=== PATIENT | female | born 1985 | race Two or more races ===

== ENCOUNTER 2023-04-30 20:55 | Emergency (ER) | payer MEDICAID, SELFPAY ==
--- NOTE | ~2023-04-30 | XR_ITS ---
EXAMINATION: XR CHEST CLINICAL INFORMATION: Low suspicion, free air under diaphragm. COMPARISON: None available. TECHNIQUE: Frontal view of the chest was obtained. FINDINGS: No significant abnormality is noted involving the heart, lungs, mediastinum, bony thorax or soft tissues. XR/XR chest 1V IMPRESSION: Unremarkable chest examination.
[2023-04-30 21:00] VITALS: BP 110/76; PULSE 70; RESP 18; TEMP 37.2; O2SAT 100; BMI 34.0
[2023-04-30 21:27] LABS: MANUAL DIFF FLAG NO
[2023-04-30 21:28] LABS: Basophils Percent Auto 0.2 % (0-2); Eosinophils Absolute Auto 0.1 X10*3/uL (0.0-0.4); Eosinophils Percent Auto 1.4 % (0-4); Hematocrit 27.9 % (37.0-47.0); Hemoglobin 8.5 g/dl (12.0-16.0); Lymphocytes Absolute Auto 2.3 X10*3/uL (1.2-4.9); Lymphocytes Percent Auto 40.6 % (20-40); Mean Corpuscular HGB Conc 30.5 g/dl (31.0-35.0); Mean Corpuscular Hemoglobin 21.5 pg (27.0-33.0); Mean Corpuscular Volume 70.6 fL (80.0-98.0); Mean Platelet Volume 9.1 fL (9.4-12.3); Monocytes Absolute Auto 0.4 X10*3/uL (0.1-1.2); Monocytes Percent Auto 7.3 % (2-11); Neutrophils Absolute Auto 2.9 x10*3/uL (2.0-8.3); Neutrophils Percent Auto 50.5 % (45-73); Platelet Count 252 X10*3/uL (160-400); Red Blood Count 3.95 X10*6/uL (4.20-5.50); Red Cell Distribution Width 14.6 % (11.0-16.0); White Blood Count 5.8 X10*3/uL (4.8-10.8)
[2023-04-30 21:47] LABS: Alanine Aminotransferase 10 U/L (0-31); Alkaline Phosphatase 73 U/L (39-117); Anion Gap 10 (12-20); Aspartate Amino Transferase 16 U/L (5-31); Bilirubin Direct 0.1 mg/dL (0.0-0.5); Bilirubin Total 0.5 mg/dL (0.0-1.0); Blood Urea Nitrogen 12 mg/dL (9-16); Carbon Dioxide 24 mmol/L (22-29); Chloride 106 mmol/L (96-108); Estimated Glomerular Filt Rate > 60; Glucose Random 113 mg/dL (60-115); Lipase 25 U/L (8-78); Sodium 136 mmol/L (135-145); Total Protein 7.7 g/dL (6.5-8.0)
--- NOTE | 2023-04-30 22:26 | ED.ABDPAIN ---
HPI - Abdominal Pain General Chief Complaint: Abdominal Pain Stated Complaint: abd pain Time Seen by Provider: 04/30/23 21:55 Source: patient and other (I[place]ic popcorn machine operator) Mode of arrival: ambulatory Limitations: other History of Present Illness HPI narrative: Patient comes to the emergency room complaining of epigastric pain and burning sensation. Patient is Icelandic speaking only. All the history obtained through an official hospital popcorn machine operator. Patient states that she was diagnosed with H pylori several weeks ago, recently finished a course of antibiotics. Patient complaining of ongoing burning sensation. Patient takes omeprazole at home with no relief. Patient states that any time that she eats or drinks anything she has intense burning sensation. Denies significant abdominal pain, no nausea vomiting or diarrhea. No fever chills. Patient denies any past medical history. Related Data Previous Rx's Medication Instructions Recorded sucralfate 1 gram tablet 1 g PO BID #60 tabs 05/01/23 Allergies Allergy/AdvReac Type Severity Reaction Status Date / Time No Known Allergies Allergy Verified 04/30/23 21:07 Review of Systems Review of Systems Constitutional : No Weight loss, No Fever, No Chills, No Night Sweats, No Fatigue, No Malaise ENT/Mouth : No Hearing loss, No Ear Pain, No Nasal Congestion, No Sinus Pain, No Hoarseness, No sore throat, No Rhinorrhea, No Swallowing Difficulty Eyes: No Eye Pain, No Swelling, No Redness, No Foreign Body, No Discharge, No Vision Changes Cardiovascular : No Chest Pain, No SOB, No Dyspnea on Exertion, No Orthopnea, No Edema, No Palpitations Respiratory : No Cough, No Sputum, No Wheezing, No Smoke Exposure, No Dyspnea Gastrointestinal : No Nausea, No Vomiting, No Diarrhea, No Constipation, complaining of epigastric burning sensation Genitourinary : no irregular bleeding, No Dysuria, No Urinary Frequency, No Hematuria, No Urinary Incontinence, No Urgency, No Flank Pain, No Urinary Flow Changes, No Hesitancy Musculoskeletal : No joint pain, No Myalgias, No Joint Swelling Skin : No Skin Lesions, No rash Neuro : No Weakness, No Numbness, No Paresthesias, No Loss of Consciousness, No Dizziness, No Headache Psych : No Anxiety/Panic, No Depression, No SI/HI/AH/VH, No Social Issues, Heme/Lymph: No Bruising, No Bleeding,No Lymphadenopathy Endocrine : No Polyuria, No Polydipsia, No Temperature Intolerance [facility] Past Medical History Medical History (Updated 05/01/23 @ 00:06 by Amanda Gomes MD) Anemia GERD (gastroesophageal reflux disease) H. pylori infection Social History Social History Alcohol intake: never Smoked in Last 30 Days: No Use of substances other than those prescribed or required for medical reasons: No Advance Directives: No Advance Directives Information Provided: Yes Patient : No Physical Exam ED Vital Signs: Vital Signs - 24 hr 04/30/23 21:00 04/30/23 22:42 04/30/23 23:30 Temperature 98.9 F Pulse Rate 70 59 Respiratory Rate 18 18 14 Blood Pressure 110/76 108/65 Pulse Oximetry 100 98 Oxygen Delivery Method Room Air BMI result Body Mass Index 34.0 Const Other: Appearance: Alert. Oriented X3. Seems uncomfortable Eyes: Pupils equal, round and reactive to light. ENT: Pharynx normal. Neck: Normal inspection. Neck supple. No lymph nodes noted. No crepitus CVS: Normal heart rate and rhythm. Pulses normal. Normal S1 and S2 Respiratory: No respiratory distress. Breath sounds normal. No Wheezing. No rales Abdomen: Soft and nontender. No rigidity. No distention. Skin: Skin warm and dry. Pale. Normal skin turgor. Extremities: No lower extremity edema. No Lacerations. No Rash Neuro: Oriented X 3. No motor deficit. No sensory deficit. Moving all extremities. No slurred speech. CN 2 through 12 grossly intact Psych: calm, cooperative, normal affect Course Course Course Narrative: -patient has history of H pylori and anemia. Patient states that sometimes she sees black stool. But no bright red blood per rectum. -patient was agreeable to a digital rectal exam, stool is brown, work test pending -patient getting a GI cocktail, IV morphine, IV famotidine, IV fluids Medical Decision Making Medical Decision Making MDM Narrative: -patient initially presented with significant epigastric pain, perforated ulcer was considered, admission was considered -repetition of lab work, white blood cell count within normal limits. Patient's hemoglobin is 8.5, patient anemic, per patient's history she has chronic anemia, no significant electrolyte abnormalities, test/hCG negative, stool occult blood negative -my interpretation of chest x-ray: No air under the diaphragm. -patient overall feeling better, patient looks more comfortable -patient's medication was switched to sucralfate -patient given the phone number to follow up with Gastroenterology Differential Diagnosis Differential Diagnoses: The differential diagnosis associated with the presentation includes (H pylori, peptic ulcer disease, gastritis, pancreatitis, NC) Admission/Observation Consideration of admission/observation: Escalation of care including admission/observation considered Lab Data MDM Lab Attestation statement: I reviewed the patient's lab results. 04/30/23 21:21 04/30/23 21:21 Labs: Lab Results 04/30/23 04/30/23 04/30/23 Range/Units 21:21 21:21 22:29 WBC 5.8 (4.8-10.8) X10*3/uL RBC 3.95 L (4.20-5.50) X10*6/uL Hgb 8.5 L (12.0-16.0) g/dl Hct 27.9 L (37.0-47.0) % MCV 70.6 L (80.0-98.0) fL MCH 21.5 L (27.0-33.0) pg MCHC 30.5 L (31.0-35.0) g/dl RDW 14.6 (11.0-16.0) % Plt Count 252 (160-400) X10*3/uL MPV 9.1 L (9.4-12.3) fL Immature Gran % (Auto) 0.0 (0.0-0.4) % Neut % (Auto) 50.5 (45-73) % Lymph % (Auto) 40.6 H (20-40) % [place] % (Auto) 7.3 (2-11) % Eos % (Auto) 1.4 (0-4) % Baso % (Auto) 0.2 (0-2) % Lymph # (Auto) 2.3 (1.2-4.9) X10*3/uL [place] # (Auto) 0.4 (0.1-1.2) X10*3/uL Eos # (Auto) 0.1 (0.0-0.4) X10*3/uL Baso # (Auto) 0.0 (0.0-0.2) X10*3/uL Abs Immat Gran (auto) 0.00 (0.00-0.03) X10*3/uL Absolute Neuts (auto) 2.9 (2.0-8.3) x10*3/uL Absolute Nucleated RBC 0.000 (0.0-0.012) X10*3/uL Nucleated RBC % (auto) 0.0 (0.0-0.2) /100WBC Sodium 136 (135-145) mmol/L Potassium 4.0 (3.3-5.1) mmol/L Chloride 106 (96-108) mmol/L Carbon Dioxide 24 (22-29) mmol/L Anion Gap 10 L (12-20) BUN 12 (9-16) mg/dL Creatinine 0.65 (0.5-1.4) mg/dL Estim Creat Clear Calc 117.0 Estimated GFR > 60 Random Glucose 113 (60-115) mg/dL Calcium 9.0 (8.4-10.2) mg/dL Total Bilirubin 0.5 (0.0-1.0) mg/dL Direct Bilirubin 0.1 (0.0-0.5) mg/dL AST 16 (5-31) U/L ALT 10 (0-31) U/L Alkaline Phosphatase 73 (39-117) U/L Total Protein 7.7 (6.5-8.0) g/dL Albumin 4.0 (3.5-5.0) g/dL Lipase 25 (8-78) U/L Beta HCG, Quant < 2 mIU/mL Stool Occult Blood (NEGATIVE) 04/30/23 Range/Units 22:54 WBC (4.8-10.8) X10*3/uL RBC (4.20-5.50) X10*6/uL Hgb (12.0-16.0) g/dl Hct (37.0-47.0) % MCV (80.0-98.0) fL MCH (27.0-33.0) pg MCHC (31.0-35.0) g/dl RDW (11.0-16.0) % Plt Count (160-400) X10*3/uL MPV (9.4-12.3) fL Immature Gran % (Auto) (0.0-0.4) % Neut % (Auto) (45-73) % Lymph % (Auto) (20-40) % [place] % (Auto) (2-11) % Eos % (Auto) (0-4) % Baso % (Auto) (0-2) % Lymph # (Auto) (1.2-4.9) X10*3/uL [place] # (Auto) (0.1-1.2) X10*3/uL Eos # (Auto) (0.0-0.4) X10*3/uL Baso # (Auto) (0.0-0.2) X10*3/uL Abs Immat Gran (auto) (0.00-0.03) X10*3/uL Absolute Neuts (auto) (2.0-8.3) x10*3/uL Absolute Nucleated RBC (0.0-0.012) X10*3/uL Nucleated RBC % (auto) (0.0-0.2) /100WBC Sodium (135-145) mmol/L Potassium (3.3-5.1) mmol/L Chloride (96-108) mmol/L Carbon Dioxide (22-29) mmol/L Anion Gap (12-20) BUN (9-16) mg/dL Creatinine (0.5-1.4) mg/dL Estim Creat Clear Calc Estimated GFR Random Glucose (60-115) mg/dL Calcium (8.4-10.2) mg/dL Total Bilirubin (0.0-1.0) mg/dL Direct Bilirubin (0.0-0.5) mg/dL AST (5-31) U/L ALT (0-31) U/L Alkaline Phosphatase (39-117) U/L Total Protein (6.5-8.0) g/dL Albumin (3.5-5.0) g/dL Lipase (8-78) U/L Beta HCG, Quant mIU/mL Stool Occult Blood NEGATIVE (NEGATIVE) Radiology Impression Discussion of test interpretation with radiology: I have reviewed the radiologist's reading. Radiologist Impression: FINDINGS: No significant abnormality is noted involving the heart, lungs, mediastinum, bony thorax or soft tissues. XR/XR chest 1V IMPRESSION: Unremarkable chest examination. Independent Historian Clinical information obtained from an independent historian. History obtained from or confirmed by: Other (Patient with the aid of popcorn machine operator) Chronic Conditions Patient?s care impacted by: Other (Anemia) Medications Administered Discontinued Medications Generic Name Dose Route Start Last Admin Trade Name Davsi PRN Reason Stop Dose Admin Famotidine 20 mg 04/30/23 22:13 04/30/23 22:46 Famotidine/Pf 20 Mg/2 Ml Vial IVPUSH 04/30/23 22:14 20 mg ONCE ONE Administration Sodium Chloride 1,000 mls @ 999 mls/hr 04/30/23 22:34 04/30/23 23:52 Ns IVCONT 04/30/23 23:34 Infused .Q1H1M ONE Infusion Lidocaine/Diphenhydr/Alum/Mg/Simeth 10 ml 04/30/23 22:13 04/30/23 22:45 Mag&Al/Sim/Diphenhyd/Lidocaine 10 Ml Oral.Susp PO 04/30/23 22:14 10 ml ONCE ONE Administration Protocol Morphine Sulfate 2 mg 04/30/23 22:13 04/30/23 22:42 Morphine Sulfate 2 Mg/Ml Cartridge IVPUSH 04/30/23 22:14 2 mg ONCE ONE Administration Protocol Discharge Plan Discharge Clinical Impression: Peptic ulcer disease Patient Disposition: Home, Self-Care Instructions: Gastritis (ED) Additional Instructions: Please follow-up with your primary care physician tomorrow. If you have any worsening or new symptoms, please return to the emergency room or call 911 Prescriptions: New sucralfate 1 gram tablet 1 g PO BID Qty: 60 0RF Referrals: Tatianna Lowery MD [Physician] -
--- NOTE | 2023-04-30 22:30 | ECG_ITS ---
Test Reason : WEAKNESS Blood Pressure : / mmHG Vent. Rate : 058 BPM Atrial Rate : 058 BPM P-R Int : 194 ms QRS Dur : 076 ms QT Int : 406 ms P-R-T Axes : 023 009 009 degrees QTc Int : 398 ms Sinus bradycardia Otherwise normal ECG No previous ECGs available Referred By: Amanda Gomes Electronically Signed By:Messi Cazares
[2023-04-30] MEDS: 0.9 % Sodium Chloride 1,000 ML 999 ML IVCONT (22:40)
[2023-04-30 22:42] VITALS: RESP 18
[2023-04-30] MEDS: Morphine Sulfate 2 MG/ML CARTRIDGE IVPUSH (22:42)
[2023-04-30] MEDS: Mag&Al/Sim/Diphenhyd/Lidocaine 10 ML ORAL.SUSP PO (22:45)
[2023-04-30] MEDS: Famotidine/PF 20 MG/2 ML VIAL IVPUSH (22:46)
[2023-04-30 22:58] LABS: HCG Quantitative < 2 mIU/mL
[2023-04-30 23:03] LABS: OBS Int Ctl Valid YES; OBS1 NEGATIVE (NEGATIVE)
[2023-04-30 23:30] VITALS: BP 108/65; PULSE 59; RESP 14; O2SAT 98
[2023-05-01] VITALS: BP 105/71; PULSE 64; RESP 16; TEMP 36.8; O2SAT 98
== END 2023-05-01 00:27 | disposition home or self-care (01) ==
PROVIDERS: Emergency Provider Emergency Medicine
DX: K27.3 Acute peptic ulcer, site unspecified, without hemorrhage or perforation (principal); R00.1 Bradycardia, unspecified; Z79.899 Other long term (current) drug therapy
CPT/HCPCS: 36415; 71045; 80048; 80076; 82272; 83690; 84702; 85025; 93005; 96361; 96374; 96375; 99284; 99285; J2270

== ENCOUNTER 2023-05-07 22:40 | Inpatient (IN) | payer MEDICAID, SELFPAY ==
[2023-05-07 22:50] VITALS: BP 106/62; PULSE 95; RESP 20; TEMP 36.8; O2SAT 100
[2023-05-07 23:00] VITALS: BP 106/62; BP 117/68; PULSE 90; PULSE 91; RESP 20; TEMP 36.8; O2SAT 100; BMI 31.4
--- NOTE | 2023-05-07 23:48 | PC.NURSE ---
medicated per dec and notified Julio Kramer
[2023-05-08] VITALS (13 sets, daily range): BP systolic 88–130; BP diastolic 50–83; PULSE 55–140; RESP 16–24; TEMP 36.2–38.8; O2SAT 95–100
--- NOTE | 2023-05-08 01:16 | ED.HA ---
HPI - Headache General Chief Complaint: Headache Stated Complaint: cx pain/headache Time Seen by Provider: 05/07/23 23:01 Source: patient Mode of arrival: ambulatory Limitations: language barrier History of Present Illness HPI Narrative: Patient with history of GERD on Tetracycline and Flagyl for last 2 days frontal headache started just started an hour prior to arrival no nausea no vomiting no photosensitivity no fever no cough no shortness of breath no head injury patient does not get headaches very often no history of migraine paired patient also complaining of diffuse body aches also has small abscess on the right leg for last few days on arrival patient temperature 98.3 degrees blood pressure 106/62 pulse rate 95 Related Data Previous Rx's Medication Instructions Recorded sucralfate 1 gram tablet 1 g PO BID #60 tabs 05/01/23 Allergies Allergy/AdvReac Type Severity Reaction Status Date / Time No Known Allergies Allergy Verified 04/30/23 21:07 Review of Systems Review of Systems: Yes all other systems are reviewed and are negative PMFSH Past Medical History Medical History Anemia GERD (gastroesophageal reflux disease) H. pylori infection Social History Social History Alcohol intake: never Advance Directives: No Advance Directives Information Provided: Yes Physical Exam Vital Signs: Vital Signs: Last Vital Signs Temp 98.5 F 05/08/23 06:10 Pulse 88 05/08/23 06:10 Resp 17 05/08/23 06:10 BP 88/50 L 05/08/23 06:10 Pulse Ox 98 05/08/23 06:10 O2 Del Method Room Air 05/08/23 06:10 BMI result Body Mass Index 31.4 Appearance: Alert. Oriented X3. No acute distress. Eyes: Pallor+ ENT: Pharynx normal. Oral Mucosa moist Neck: Normal inspection. Neck supple. Kernig sign negative CVS: Normal heart rate and rhythm. Pulses normal. Respiratory: No respiratory distress. Equal air entry bilateral, no wheezing/rales/rhonchi Abdomen: Soft and nontender. Bowel sounds are present, no mass palpable, no CVA tenderness Skin: Skin warm and dry. Normal skin color. Normal skin turgor. Extremities: No lower extremity edema. No calf tenderness superficial abscess right lower extremity with surrounding erythema Neuro: Oriented X 3. No motor deficit. No sensory deficit.No cerebellar signs , cranial nerves II-XII intact Medications Administered Generic Name Dose Route Start Last Admin Trade Name Davis PRN Reason Stop Dose Admin Enoxaparin Sodium 40 mg 05/08/23 04:00 05/08/23 03:38 Enoxaparin Sodium 40 Mg/0.4 Ml Syringe SUBCUT 40 mg Q24H LUCIANO Administration Discontinued Medications Generic Name Dose Route Start Last Admin Trade Name Davis PRN Reason Stop Dose Admin Acetaminophen 650 mg 05/08/23 01:19 05/08/23 01:35 Acetaminophen 325 Mg Tablet PO 05/08/23 01:20 650 mg ONCE ONE Administration Acetaminophen/Butalbital/Caffeine 1 tab 05/07/23 23:17 05/07/23 23:33 Butalb/Acetamin/Caff 50/325/40 Tablet PO 05/07/23 23:18 1 tab ONCE ONE Administration Sodium Chloride 2,500 mls @ 2,500 mls/hr 05/08/23 01:20 05/08/23 02:20 Ns IV 05/08/23 02:19 Infused .Q1H STA Infusion Ceftriaxone Sodium 1 gm/ 50 mls @ 100 mls/hr 05/08/23 01:26 05/08/23 02:07 Sodium Chloride IV 05/08/23 01:55 Infused ONCE ONE Infusion Vancomycin HCl 1,500 mg/ 500 mls @ 333.333 mls/hr 05/08/23 01:52 05/08/23 01:57 Sodium Chloride IV 05/08/23 03:21 Not Given ONCE ONE Vancomycin HCl 2,000 mg in 500 mls @ 250 mls/hr 05/08/23 02:00 05/08/23 04:48 Vancomycin/Ns IV 05/08/23 03:59 Infused ONCE ONE Infusion Ketorolac Tromethamine 60 mg 05/08/23 00:27 05/08/23 00:39 Ketorolac Tromethamine 60 Mg/2 Ml Vial IM 05/08/23 00:28 60 mg ONCE ONE Administration Lidocaine HCl 2 ml 05/08/23 01:53 05/08/23 02:24 Lidocaine Hcl 1 % Mpf 2 Ml Vial INFILTRATI 05/08/23 01:54 2 ml ONCE ONE Administration Medical Decision Making Medical Decision Making [facility] Narrative: Patient she came with headache is on arrival head CT was negative during stay in the ER at 01:20 patient's with tachycardia of 118 blood pressure 107/61 saturating 96% room air sepsis protocol started lab showed lactic acid of 2.7 started on vancomycin and IV Rocephin IV fluids were given Differential Diagnosis Differential Diagnoses: The differential diagnosis associated with the presentation includes Sepsis/meningitis/migraine headache/anxiety/viral syndrome Consult Healthcare Provider Management of the patient was discussed with: Hospitalist Lab Data MDM Lab Attestation statement: I reviewed the patient's lab results. 05/08/23 01:27 05/08/23 01:27 Labs: Lab Results 05/07/23 05/08/23 05/08/23 Range/Units 23:39 00:45 00:45 WBC (4.8-10.8) X10*3/uL RBC (4.20-5.50) X10*6/uL Hgb (12.0-16.0) g/dl Hct (37.0-47.0) % MCV (80.0-98.0) fL MCH (27.0-33.0) pg MCHC (31.0-35.0) g/dl RDW (11.0-16.0) % Plt Count (160-400) X10*3/uL MPV (9.4-12.3) fL Immature Gran % (Auto) (0.0-0.4) % Neut % (Auto) (45-73) % Lymph % (Auto) (20-40) % [place] % (Auto) (2-11) % Eos % (Auto) (0-4) % Baso % (Auto) (0-2) % Lymph # (Auto) (1.2-4.9) X10*3/uL [place] # (Auto) (0.1-1.2) X10*3/uL Eos # (Auto) (0.0-0.4) X10*3/uL Baso # (Auto) (0.0-0.2) X10*3/uL Abs Immat Gran (auto) (0.00-0.03) X10*3/uL Absolute Neuts (auto) (2.0-8.3) x10*3/uL Absolute Nucleated RBC (0.0-0.012) X10*3/uL Nucleated RBC % (auto) (0.0-0.2) /100WBC Smear Tech's Comments Sodium (135-145) mmol/L Potassium (3.3-5.1) mmol/L Chloride (96-108) mmol/L Carbon Dioxide (22-29) mmol/L Anion Gap (12-20) BUN (9-16) mg/dL Creatinine (0.5-1.4) mg/dL Estim Creat Clear Calc Estimated GFR Random Glucose (60-115) mg/dL Lactic Acid (0.5-2.0) mmol/L Calcium (8.4-10.2) mg/dL Total Bilirubin (0.0-1.0) mg/dL AST (5-31) U/L ALT (0-31) U/L Alkaline Phosphatase (39-117) U/L Total Protein (6.5-8.0) g/dL Albumin (3.5-5.0) g/dL Urine Color Yellow Urine Appearance Clear Urine pH 6.0 (5.0-9.0) Ur Specific [place] 1.010 (1.005-1.025) Urine Protein Negative (Neg-Trace) mg/dL Urine Glucose (UA) Negative (Negative) mg/dL Urine Ketones Negative (Negative) mg/dL Urine Blood Negative (Negative) Urine Nitrite Negative (Negative) Ur Leukocyte Esterase Negative (Negative) Urine Test NEGATIVE (NEGATIVE) COVID-19 ([facility]) Negative (Negative) COVID-19 Clin Com See Note 05/08/23 05/08/23 05/08/23 Range/Units 01:27 01:27 01:27 WBC 3.1 L (4.8-10.8) X10*3/uL RBC 3.97 L (4.20-5.50) X10*6/uL Hgb 8.3 L (12.0-16.0) g/dl Hct 27.9 L (37.0-47.0) % MCV 70.3 L (80.0-98.0) fL MCH 20.9 L (27.0-33.0) pg MCHC 29.7 L (31.0-35.0) g/dl RDW 14.8 (11.0-16.0) % Plt Count 140 L D (160-400) X10*3/uL MPV 9.5 (9.4-12.3) fL Immature Gran % (Auto) 0.3 (0.0-0.4) % Neut % (Auto) 93.0 H (45-73) % Lymph % (Auto) 6.1 L (20-40) % [place] % (Auto) 0.3 L (2-11) % Eos % (Auto) 0.0 (0-4) % Baso % (Auto) 0.3 (0-2) % Lymph # (Auto) 0.2 L (1.2-4.9) X10*3/uL [place] # (Auto) 0.0 L (0.1-1.2) X10*3/uL Eos # (Auto) 0.0 (0.0-0.4) X10*3/uL Baso # (Auto) 0.0 (0.0-0.2) X10*3/uL Abs Immat Gran (auto) 0.01 (0.00-0.03) X10*3/uL Absolute Neuts (auto) 2.9 (2.0-8.3) x10*3/uL Absolute Nucleated RBC 0.000 (0.0-0.012) X10*3/uL Nucleated RBC % (auto) 0.0 (0.0-0.2) /100WBC Smear Tech's Comments VERIFIED Sodium 138 (135-145) mmol/L Potassium 3.4 (3.3-5.1) mmol/L Chloride 109 H (96-108) mmol/L Carbon Dioxide 18 L (22-29) mmol/L Anion Gap 14 (12-20) BUN 15 (9-16) mg/dL Creatinine 0.85 (0.5-1.4) mg/dL Estim Creat Clear Calc 89.2 Estimated GFR > 60 Random Glucose 226 H (60-115) mg/dL Lactic Acid 2.7 H* (0.5-2.0) mmol/L Calcium 9.2 (8.4-10.2) mg/dL Total Bilirubin 0.4 (0.0-1.0) mg/dL AST 18 (5-31) U/L ALT 11 (0-31) U/L Alkaline Phosphatase 81 (39-117) U/L Total Protein 7.1 (6.5-8.0) g/dL Albumin 3.8 (3.5-5.0) g/dL Urine Color Urine Appearance Urine pH (5.0-9.0) Ur Specific [place] (1.005-1.025) Urine Protein (Neg-Trace) mg/dL Urine Glucose (UA) (Negative) mg/dL Urine Ketones (Negative) mg/dL Urine Blood (Negative) Urine Nitrite (Negative) Ur Leukocyte Esterase (Negative) Urine Test (NEGATIVE) COVID-19 ([facility]) (Negative) COVID-19 Clin Com Procedures Abscess I/D Site: lower extremity Side (if applicable): right Local Anesthetic: lidocaine 1% Amount of anesthesia used (mL): 2 Technique: incised with blade Amount of fluid expressed (mL): 0.5 Sent for culture/gram staining?: Yes Irrigation: No Packing used?: none Complications: pain Discharge Plan Discharge Clinical Impression: Cellulitis, Fever Patient Disposition: Admitted As Inpatient
--- NOTE | 2023-05-08 01:20 | PC.NURSE ---
Sepsis alert called at this time.
--- NOTE | 2023-05-08 01:30 | PC.NURSE ---
sepsis bolus initiated
[2023-05-08 01:36] LABS: Basophils Percent Auto 0.3 % (0-2); Hematocrit 27.9 % (37.0-47.0); Hemoglobin 8.3 g/dl (12.0-16.0); Imm Gran Abs Auto 0.01 X10*3/uL (0.00-0.03); Imm Gran Pct Auto 0.3 % (0.0-0.4); Lymphocytes Absolute Auto 0.2 X10*3/uL (1.2-4.9); Lymphocytes Percent Auto 6.1 % (20-40); MANUAL DIFF FLAG SCAN; Mean Corpuscular HGB Conc 29.7 g/dl (31.0-35.0); Mean Corpuscular Hemoglobin 20.9 pg (27.0-33.0); Mean Corpuscular Volume 70.3 fL (80.0-98.0); Mean Platelet Volume 9.5 fL (9.4-12.3); Monocytes Percent Auto 0.3 % (2-11); Neutrophils Absolute Auto 2.9 x10*3/uL (2.0-8.3); Platelet Count 140 X10*3/uL (160-400); Red Blood Count 3.97 X10*6/uL (4.20-5.50); Red Cell Distribution Width 14.8 % (11.0-16.0); SCAN SMEAR FLAG 1; White Blood Count 3.1 X10*3/uL (4.8-10.8)
--- NOTE | 2023-05-08 01:37 | PC.NURSE ---
IV antibiotics initiated at this time.
--- NOTE | 2023-05-08 01:44 | PC.NURSE ---
Pt with wound to lateral aspect of right lower leg. redness and swelling noted around area.
[2023-05-08 01:52] LABS: Alanine Aminotransferase 11 U/L (0-31); Albumin Level 3.8 g/dL (3.5-5.0); Alkaline Phosphatase 81 U/L (39-117); Anion Gap 14 (12-20); Aspartate Amino Transferase 18 U/L (5-31); Bilirubin Total 0.4 mg/dL (0.0-1.0); Blood Urea Nitrogen 15 mg/dL (9-16); Calcium 9.2 mg/dL (8.4-10.2); Carbon Dioxide 18 mmol/L (22-29); Chloride 109 mmol/L (96-108); Creatinine Clr Calc Pharmacy 89.2; Estimated Glomerular Filt Rate > 60; Glucose Random 226 mg/dL (60-115); Potassium 3.4 mmol/L (3.3-5.1); Sodium 138 mmol/L (135-145); Total Protein 7.1 g/dL (6.5-8.0)
[2023-05-08 01:59] LABS: SLIDE REVIEW VERIFIED
--- NOTE | 2023-05-08 02:24 | PC.NURSE ---
Dr. Ames at bedside for I&D to wound on right leg.
--- NOTE | 2023-05-08 02:45 | PM.IMHP ---
History of Present Illness Date of Service: 05/08/23 Chief Complaint: Fever This is a 37-year-old female with pertinent history of gastroesophageal reflux disease who presents to the emergency department for evaluation of fevers. Patient states that started on the day of presentation. It is associated with headache and generalized body ache. On further investigation, patient states that she has a wound on right lower extremity which is tender, red and warm. It has been draining purulent foul-smelling discharge on the day of presentation. Patient states this is due to ingrown hair. Patient admits fevers and chills. She denies cough, shortness of breath, palpitations, chest discomfort abdominal pain, changes in urinary or bowel habits. In the emergency department, patient was found to be septic Review of Systems Constitutional: Constitutional: Reports chills, Reports fever(s) and Reports headache(s) ENT: Reports headache(s) Cardiovascular: Cardiovascular: Reports no additional cardiovascular complaints Respiratory: Respiratory: Reports no additional respiratory complaints Gastrointestinal: Gastrointestinal: Reports no additional gastrointestinal complaints Neurologic: Reports headache(s) [facility] Medical History Anemia GERD (gastroesophageal reflux disease) H. pylori infection Pertinent family history: No family history of early CAD Social History Alcohol intake: never Advance Directives: No Advance Directives Information Provided: Yes Meds Allergies Allergy/AdvReac Type Severity Reaction Status Date / Time No Known Allergies Allergy Verified 04/30/23 21:07 Active Medications: Current Medications Vancomycin HCl (Vancomycin/Ns) 2,000 mg in 500 mls @ 250 mls/hr IV ONCE ONE Stop: 05/08/23 03:59 Last Admin: 05/08/23 02:25 Dose: 250 mls/hr Physical Exam Vital Signs and Narrative: Vital Signs: Last Vital Signs Temp 98.4 F 05/08/23 02:20 Pulse 109 H 05/08/23 02:20 Resp 17 05/08/23 02:20 BP 119/67 05/08/23 02:20 Pulse Ox 100 05/08/23 02:20 O2 Del Method Room Air 05/08/23 02:20 BMI result Body Mass Index 31.4 Middle-aged female lying in bed in no distress Neck supple, no JVD Tachycardic with regular rhythm, S1-S2 heard Regular breath sounds bilaterally, no wheezing or crackles appreciated Abdomen soft nontender, no guarding, no rigidity Patient is awake, alert and oriented to self, place, time and person ; no focal motor deficit Extremity: Right lower extremity with area of erythema, warmth and tenderness Psych: Normal mood No pedal edema Results Labs 05/08/23 01:27 05/08/23 01:27 Labs: Laboratory Results - last 24 hr 05/07/23 05/08/23 05/08/23 23:39 00:45 00:45 MCV MCH MCHC RDW Plt Count MPV Immature Gran % (Auto) Neut % (Auto) Lymph % (Auto) [place] % (Auto) Eos % (Auto) Baso % (Auto) Lymph # (Auto) [place] # (Auto) Eos # (Auto) Baso # (Auto) Abs Immat Gran (auto) Absolute Neuts (auto) Absolute Nucleated RBC Nucleated RBC % (auto) Smear Tech's Comments Anion Gap Estim Creat Clear Calc Estimated GFR Random Glucose Lactic Acid Calcium Total Bilirubin AST ALT Alkaline Phosphatase Total Protein Albumin Urine Color Yellow Urine Appearance Clear Urine pH 6.0 Ur Specific [place] 1.010 Urine Protein Negative Urine Glucose (UA) Negative Urine Ketones Negative Urine Blood Negative Urine Nitrite Negative Ur Leukocyte Esterase Negative Urine Test NEGATIVE COVID-19 ([facility]) Negative COVID-19 Clin Com See Note 05/08/23 05/08/23 05/08/23 01:27 01:27 01:27 MCV 70.3 L MCH 20.9 L MCHC 29.7 L RDW 14.8 Plt Count 140 L D MPV 9.5 Immature Gran % (Auto) 0.3 Neut % (Auto) 93.0 H Lymph % (Auto) 6.1 L [place] % (Auto) 0.3 L Eos % (Auto) 0.0 Baso % (Auto) 0.3 Lymph # (Auto) 0.2 L [place] # (Auto) 0.0 L Eos # (Auto) 0.0 Baso # (Auto) 0.0 Abs Immat Gran (auto) 0.01 Absolute Neuts (auto) 2.9 Absolute Nucleated RBC 0.000 Nucleated RBC % (auto) 0.0 Smear Tech's Comments VERIFIED Anion Gap 14 Estim Creat Clear Calc 89.2 Estimated GFR > 60 Random Glucose 226 H Lactic Acid 2.7 H* Calcium 9.2 Total Bilirubin 0.4 AST 18 ALT 11 Alkaline Phosphatase 81 Total Protein 7.1 Albumin 3.8 Urine Color Urine Appearance Urine pH Ur Specific [place] Urine Protein Urine Glucose (UA) Urine Ketones Urine Blood Urine Nitrite Ur Leukocyte Esterase Urine Test COVID-19 ([facility]) COVID-19 Clin Com Imaging Radiologist's Impressions: Impressions Head CT 05/08/23 01:29 IMPRESSION: No acute intracranial pathology. Assessment and Plan (1) Cellulitis: Status: Acute Plan This is a 37-year-old female with pertinent history of gastroesophageal reflux disease who presents to the emergency department for evaluation of fevers. #. Sepsis due to purulent cellulitis. Patient resuscitated with IV crystalloids. Blood culture obtained. Initiating empiric IV vancomycin for concern of Staph. Lactic acid obtained #. Acute lactic acidosis due to sepsis. Resuscitated with IV crystalloids #. Microcytic anemia. Obtaining iron panel #. Gastroesophageal reflux disease. On PPI DVT prophylaxis: Lovenox Full code Regular diet Admit as inpatient and will require two night minimum hospital stay for IV antibiotics Time Spent With Patient Time: Total time managing care of this patient today ____ minutes. Quality Stroke Does the patient have a stroke diagnosis?: No VTE Prior VTE?: No VTE Risk Level:: Medical - moderate - high VTE Device Contraindication: Treatment Not Indicated VTE Drug Contraindication: N/A - Med Ordered
--- NOTE | 2023-05-08 03:41 | PC.NURSE ---
Pt with complaints of feeling hot. Ice packs applied to armpits and feet.
[2023-05-08 03:51] LABS: Iron 17 mcg/dL (30-160); Percent Iron Saturation 6 % (15-50); Total Iron Binding Capacity 307 mcg/dL (228-428); Unsaturated Iron Binding 290 ug/dL
[2023-05-08 04:20] LABS: ~Lactic Acid-LAB USE ONLY 2.1 mmol/L (0.5-2.0)
[2023-05-08 05:01] LABS: Hematocrit 25.8 % (37.0-47.0); Hemoglobin 7.8 g/dl (12.0-16.0); Imm Gran Abs Auto 0.01 X10*3/uL (0.00-0.03); Imm Gran Pct Auto 0.3 % (0.0-0.4); Lymphocytes Absolute Auto 0.2 X10*3/uL (1.2-4.9); Lymphocytes Percent Auto 7.1 % (20-40); MANUAL DIFF FLAG SCAN; Mean Corpuscular HGB Conc 30.2 g/dl (31.0-35.0); Mean Corpuscular Hemoglobin 21.3 pg (27.0-33.0); Mean Corpuscular Volume 70.5 fL (80.0-98.0); Mean Platelet Volume 9.5 fL (9.4-12.3); Monocytes Percent Auto 0.6 % (2-11); Neutrophils Absolute Auto 2.8 x10*3/uL (2.0-8.3); Platelet Count 129 X10*3/uL (160-400); Red Blood Count 3.66 X10*6/uL (4.20-5.50); Red Cell Distribution Width 14.9 % (11.0-16.0); SCAN SMEAR FLAG 1; White Blood Count 3.1 X10*3/uL (4.8-10.8)
[2023-05-08 05:23] LABS: Anion Gap 10 (12-20); Blood Urea Nitrogen 11 mg/dL (9-16); Calcium 8.2 mg/dL (8.4-10.2); Carbon Dioxide 18 mmol/L (22-29); Chloride 116 mmol/L (96-108); Creatinine Clr Calc Pharmacy 103.9; Estimated Glomerular Filt Rate > 60; Glucose Random 105 mg/dL (60-115); Potassium 3.5 mmol/L (3.3-5.1); Sodium 140 mmol/L (135-145)
--- NOTE | 2023-05-08 05:57 | PC.NURSE ---
Report to Janis HERRERA on 3S.
[2023-05-08 06:02] LABS: Reflex Lactate? 2 Y
--- NOTE | 2023-05-08 06:15 | PC.NURSE ---
additional 1000 ml Nacl bolus initiated.
--- NOTE | 2023-05-08 07:37 | PHA.PROG ---
Admission Date/Time: May 08, 2023 02:43 Indication: Sepsis due to Cellulites Weight in k.8 kg Adjusted body weight in K.18 kg Wolsey body weight in K.1 Obesity Dosing Indication % IBW: 155% Serum Creatinine - Last 168 Hours 05/08/23 05/08/23 01:27 04:57 Creatinine 0.85 0.73 Estimated CrCl and GFR - Last 168 Hours 05/08/23 05/08/23 01:27 04:57 Estim Creat Clear Calc 89.2 103.9 Estimated GFR > 60 > 60 Vancomycin Loading Dose: 2000 mg Current Vancomycin Dosing Regimen: 1250 mg Q12H Date and Time for next Vancomycin Level to be drawn: 05/09 @ 1200 Pharmacist Comments on Vancomycin Plan: Patient received an adequate load dose on 05/08 @ 0225 in the ER Maintenance dose vanco 1250 mg Q12H is scheduled to start 05/08 @ 1400. Expected AUC is 515 with a trough of 15.2 Patient is obese with with %IBW > 130% therefore careful monitor is required due to high volume of distribution. Level is will be drawn prior to the 4th dose Pharmacy will monitor renal function daily. Carito Terrazas, Katherin Vancomycin dosing will take advantage of Le[employer] as a clinical decision support tool that uses Bayesian modeling to calculate individual patient's pharmacokinetic parameters and forecast the patient's drug concentration time course with the target goal AUC 24 range of 400 - 600 mg/L/hr.
--- NOTE | 2023-05-08 09:00 | MHC.CM.PN ---
Addendum entered by Tere Albrecht 05/08/23 11:05: CORRECTION: PT SPEAKS PORTIA Original Note: CM MET WITH PT USING [employer] TESTER NUMBER [id number] PT IS FRENCH SPEAKING ONLY PER HER REPORT: PT LIVES WITH HER AND CHILDREN PT IS FULLY INDEPENDENT WITH CARE, HAS NO DME AND NO SERVICES PT DECLINES TO COMPLETE A HCP, BUT SAYS SHE WILL ASK HER SHE IS AWARE CM CAN ASSIST ANY TIME DURING ADMISSION PT DOES NOT KNOW THE NAME OF HER PCP, SHE SAYS SHE GOES TO A [facility] IN [place] AND THE PCPS FIRST NAME IS JANKI DCP: HOME WITH NO SERVICES TO TRANSPORT
--- NOTE | 2023-05-08 09:05 | PHA.MEDREC ---
Addendum entered by Zee Moreno [facility] 05/08/23 09:11: REVIEWED Original Note: Pharmacy Consult ? Medication Reconciliation Pharmacy has completed the medication reconciliation. Utilized telephone internet sales representative to confirm meds. Patient has RX bottles of metronidazole 500mg QID and tetracycline 500mg QIDACHS with them with anticipated end date of 05/21/23.
--- NOTE | 2023-05-08 13:00 | HO.PM.IMPN ---
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 she denies recent travel, sick contacts, sob, cough, abdominal pain, nausea, vomiting, diarrhea. she had pain at right leg wound - started several days ago as pustule, doesn't think it was a bug bite Review of Systems Review of Systems: Yes all other systems are reviewed and are negative Constitutional Constitutional: Denies chills and Reports fever(s) ENT Ears, Nose, Mouth, and Throat: Denies dizziness Cardiovascular Cardiovascular: Denies chest pain, Denies claudication and Denies dyspnea Respiratory Respiratory: Denies cough and Denies dyspnea Gastrointestinal Gastrointestinal: Denies abdominal pain, Denies diarrhea, Denies nausea and Denies vomiting Neurologic Neurologic: Denies dizziness Physical Exam Vital Signs: Vital Signs: Last Vital Signs Temp 97.3 F 05/08/23 08:00 Pulse 60 05/08/23 08:00 Resp 16 05/08/23 08:00 BP 109/64 05/08/23 08:00 Pulse Ox 99 05/08/23 08:00 O2 Del Method Room Air 05/08/23 08:00 BMI result Body Mass Index 31.4 Const: General: comfortable, alert and awake Nutritional Appearance: overweight Orientation/consciousness: patient oriented x3 Eyes: Pupils: Equal, round and reactive pupils present Neck: Other: neck supple, full ROM no meningeal signs some tenderness to palpation upper trapezius, primarily left side Resp: Effort & Inspection: normal respiratory effort, no respiratory distress and no use of accessory muscles Auscultation: clear to auscultation bilaterally Cardio: Rate: regular rate Heart sounds: S1 normal heart sound present and S2 normal heart sound present GI: Inspection: No distended Palpation (GI): Soft to palpation Neuro: General: patient oriented x3, moves all extremities and CN's II-XI intact bilaterally Cranial nerves: Yes Equal, round and reactive pupils present and Yes Midline tongue present Extrem: Other: right cabrera wound, no fluctuance or induration, mild tenderness General: Yes no pedal edema Objective Data Active Medications Acetaminophen (Acetaminophen 325 Mg Tablet) 650 mg PO Q6H PRN PRN Reason: Pain, Mild (Pain Scale 1-3) Last Admin: 05/08/23 10:25 Dose: 650 mg Documented By: MARGOTH Enoxaparin Sodium (Enoxaparin Sodium 40 Mg/0.4 Ml Syringe) 40 mg SUBCUT Q24H [facility] Last Admin: 05/08/23 03:38 Dose: 40 mg Documented By: JUAN C Vancomycin HCl 1,250 mg/ (Sodium Chloride) 250 mls @ 166.667 mls/hr IV Q12H [facility] Lactated Ringer's (Lr) 1,000 mls @ 125 mls/hr IVCONT .Q8H [facility] Last Admin: 05/08/23 07:28 Dose: 125 mls/hr Documented By: MARGOTH Melatonin (Melatonin 3 Mg Tablet) 6 mg PO BEDTIME PRN PRN Reason: Insomnia Methocarbamol (Methocarbamol 750 Mg Tablet) 750 mg PO BEDTIME [facility] Metronidazole (Metronidazole 500 Mg Tablet) 500 mg PO QID [facility] Non-Formulary Medication (Tetracycline) 500 mg PO QIDACHS [facility] Omeprazole (Omeprazole 20 Mg Capsule.) 20 mg PO DAILY@0630 [facility] Last Admin: 05/08/23 06:41 Dose: 20 mg Documented By: JENIFER Omeprazole (Omeprazole 20 Mg Capsule.) 20 mg PO BID@0630,1630 [facility] Ondansetron HCl (Ondansetron Hcl 4 Mg/2 Ml Vial) 4 mg IVPUSH Q8H PRN PRN Reason: Nausea and Vomiting Pharmacy Consult (Consult Rx Vancomycin Dosing) 1 each MISCELLANE DAILY PRN PRN Reason: Consult order Pharmacy Consult (Consult Rx Perform Med Rec) 1 each MISCELLANE ONCE PRN PRN Reason: Consult order Sertraline HCl (Sertraline Hcl 25 Mg Tablet) 25 mg PO DAILY [facility] Sodium Chloride (0.9 % Sodium Chloride Flush 3 Ml Syringe) 3 ml IVFLUSH QSHIFT [facility] Last Admin: 05/08/23 07:28 Dose: 3 ml Documented By: MARGOTH Sucralfate (Sucralfate 1 Gm Tablet) 1 gm PO BID [facility] Labs 05/08/23 04:57 05/08/23 04:57 Labs: Laboratory Results - last 24 hr 05/07/23 05/08/23 05/08/23 23:39 00:45 00:45 MCV MCH MCHC RDW Plt Count MPV Immature Gran % (Auto) Neut % (Auto) Lymph % (Auto) [place] % (Auto) Eos % (Auto) Baso % (Auto) Lymph # (Auto) [place] # (Auto) Eos # (Auto) Baso # (Auto) Abs Immat Gran (auto) Absolute Neuts (auto) Absolute Nucleated RBC Nucleated RBC % (auto) Smear Tech's Comments Anion Gap Estim Creat Clear Calc Estimated GFR Random Glucose Lactic Acid Lactic Acid F/U @ 2Hr Lactic Acid F/U @ 4Hr Calcium Iron TIBC % Saturation Unsat Iron Binding Total Bilirubin AST ALT Alkaline Phosphatase Total Protein Albumin Urine Color Yellow Urine Appearance Clear Urine pH 6.0 Ur Specific [place] 1.010 Urine Protein Negative Urine Glucose (UA) Negative Urine Ketones Negative Urine Blood Negative Urine Nitrite Negative Ur Leukocyte Esterase Negative Urine Test NEGATIVE COVID-19 ([facility]) Negative COVID-19 Clin Com See Note 05/08/23 05/08/23 05/08/23 01:27 01:27 01:27 MCV 70.3 L MCH 20.9 L MCHC 29.7 L RDW 14.8 Plt Count 140 L D MPV 9.5 Immature Gran % (Auto) 0.3 Neut % (Auto) 93.0 H Lymph % (Auto) 6.1 L [place] % (Auto) 0.3 L Eos % (Auto) 0.0 Baso % (Auto) 0.3 Lymph # (Auto) 0.2 L [place] # (Auto) 0.0 L Eos # (Auto) 0.0 Baso # (Auto) 0.0 Abs Immat Gran (auto) 0.01 Absolute Neuts (auto) 2.9 Absolute Nucleated RBC 0.000 Nucleated RBC % (auto) 0.0 Smear Tech's Comments VERIFIED Anion Gap 14 Estim Creat Clear Calc 89.2 Estimated GFR > 60 Random Glucose 226 H Lactic Acid 2.7 H* Lactic Acid F/U @ 2Hr Lactic Acid F/U @ 4Hr Calcium 9.2 Iron TIBC % Saturation Unsat Iron Binding Total Bilirubin 0.4 AST 18 ALT 11 Alkaline Phosphatase 81 Total Protein 7.1 Albumin 3.8 Urine Color Urine Appearance Urine pH Ur Specific [place] Urine Protein Urine Glucose (UA) Urine Ketones Urine Blood Urine Nitrite Ur Leukocyte Esterase Urine Test COVID-19 ([facility]) COVID-19 Clin Com 05/08/23 05/08/23 05/08/23 03:28 03:57 04:57 MCV 70.5 L MCH 21.3 L MCHC 30.2 L RDW 14.9 Plt Count 129 L MPV 9.5 Immature Gran % (Auto) 0.3 Neut % (Auto) 92.0 H Lymph % (Auto) 7.1 L [place] % (Auto) 0.6 L Eos % (Auto) 0.0 Baso % (Auto) 0.0 Lymph # (Auto) 0.2 L [place] # (Auto) 0.0 L Eos # (Auto) 0.0 Baso # (Auto) 0.0 Abs Immat Gran (auto) 0.01 Absolute Neuts (auto) 2.8 Absolute Nucleated RBC 0.000 Nucleated RBC % (auto) 0.0 Smear Tech's Comments Anion Gap Estim Creat Clear Calc Estimated GFR Random Glucose Lactic Acid Lactic Acid F/U @ 2Hr 2.1 H* Lactic Acid F/U @ 4Hr Calcium Iron 17 L TIBC 307 % Saturation 6 L Unsat Iron Binding 290 Total Bilirubin AST ALT Alkaline Phosphatase Total Protein Albumin Urine Color Urine Appearance Urine pH Ur Specific [place] Urine Protein Urine Glucose (UA) Urine Ketones Urine Blood Urine Nitrite Ur Leukocyte Esterase Urine Test COVID-19 ([facility]) COVID-19 Clin Com 05/08/23 05/08/23 04:57 06:14 MCV MCH MCHC RDW Plt Count MPV Immature Gran % (Auto) Neut % (Auto) Lymph % (Auto) [place] % (Auto) Eos % (Auto) Baso % (Auto) Lymph # (Auto) [place] # (Auto) Eos # (Auto) Baso # (Auto) Abs Immat Gran (auto) Absolute Neuts (auto) Absolute Nucleated RBC Nucleated RBC % (auto) Smear Tech's Comments Anion Gap 10 L Estim Creat Clear Calc 103.9 Estimated GFR > 60 Random Glucose 105 Lactic Acid Lactic Acid F/U @ 2Hr Lactic Acid F/U @ 4Hr 0.7 Calcium 8.2 L D Iron TIBC % Saturation Unsat Iron Binding Total Bilirubin AST ALT Alkaline Phosphatase Total Protein Albumin Urine Color Urine Appearance Urine pH Ur Specific [place] Urine Protein Urine Glucose (UA) Urine Ketones Urine Blood Urine Nitrite Ur Leukocyte Esterase Urine Test COVID-19 ([facility]) COVID-19 Clin Com Microbiology Microbiology Results: Microbiology 05/08/23 03:02 Gram Stain - Final Leg Right Assessment and Plan (1) Fever: Status: Acute (2) Cellulitis: Status: Acute Plan This is a 37-year-old Sarina speaking female with history of gastroesophageal reflux disease who presents to the emergency department for evaluation of fevers. Sepsis possibly due to purulent cellulitis, although area of involvement is small UA, CXR, negative met sepsis criteria with fever, tachycardia, leukopenia. fever and tachycardia resolved lactic acid 2.7-->2.1 with IVF s/p 30 cc/kg bolus in ED, bp soft, will continue IVF continue IV vancomycin blood cultures pending RPP pending ID consult pending Acute lactic acidosis due to sepsis continue IVF chronic Microcytic anemia pt reports h/o anemia, but does not know cause or baseline H/H stool occult negative reports menorrhagia Obtaining iron panel GERD recently diagnosed with h.pylori continue triple abx therapy, end date 05/21 continue carafate DVT prophylaxis: Lovenox Full code Regular diet attending - dr. mora Requires ongoing hospital stay for IV antibiotics Time Spent With Patient Time: Total time managing care of this patient today ____ minutes. Quality Stroke Does the patient have a stroke diagnosis?: No VTE Prior VTE?: No VTE Risk Level:: Medical - moderate - high VTE Device Contraindication: Treatment Not Indicated VTE Drug Contraindication: N/A - Med Ordered
--- NOTE | 2023-05-08 15:53 | W.PM.IDCN ---
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 Area was drained and culture is pending but gram stain shows polys/gram positive cocci. She is from [facility] originally. She denies tuberculosis positivity on testing and denies MRSA. She had no injury to her leg . Noone has illness in her home. She also has headache. She is taking tetracycline and flagyl for Hpylori and having trouble tolerating them due to GI distress. Review of Systems Review of Systems: Yes all other systems are reviewed and are negative PMFSH Past Medical History Medical History Anemia Depression GERD (gastroesophageal reflux disease) H. pylori infection Family History Family history: reviewed and not pertinent Social History Social History Household Members: Spouse, Family and Children Housing: House Do you presently have visiting nurse or other home services: No Alcohol intake: never Patient Tobacco Use Status: Never used Tobacco service: No Meds Allergies Allergy/AdvReac Type Severity Reaction Status Date / Time No Known Allergies Allergy Verified 04/30/23 21:07 Active Medications: Current Medications Acetaminophen (Acetaminophen 325 Mg Tablet) 650 mg PO Q6H PRN PRN Reason: Pain, Mild (Pain Scale 1-3) Last Admin: 05/08/23 10:25 Dose: 650 mg Enoxaparin Sodium (Enoxaparin Sodium 40 Mg/0.4 Ml Syringe) 40 mg SUBCUT Q24H [facility] Last Admin: 05/08/23 03:38 Dose: 40 mg Vancomycin HCl 1,250 mg/ (Sodium Chloride) 250 mls @ 166.667 mls/hr IV Q12H [facility] Last Infusion: 05/08/23 15:19 Dose: Infused Lactated Ringer's (Lr) 1,000 mls @ 125 mls/hr IVCONT .Q8H [facility] Last Admin: 05/08/23 15:48 Dose: 125 mls/hr Melatonin (Melatonin 3 Mg Tablet) 6 mg PO BEDTIME PRN PRN Reason: Insomnia Methocarbamol (Methocarbamol 750 Mg Tablet) 750 mg PO BEDTIME [facility] Metronidazole (Metronidazole 500 Mg Tablet) 500 mg PO QID [facility] Last Admin: 05/08/23 13:38 Dose: 500 mg (Tetracycline 500 Mg (Capsule)) 500 mg PO QIDACHS [facility] Last Admin: 05/08/23 15:48 Dose: 500 mg Omeprazole (Omeprazole 20 Mg Capsule.) 20 mg PO DAILY@0630 [facility] Last Admin: 05/08/23 06:41 Dose: 20 mg Omeprazole (Omeprazole 20 Mg Capsule.Dr) 20 mg PO BID@0630,1630 [facility] Last Admin: 05/08/23 15:48 Dose: 20 mg Ondansetron HCl (Ondansetron Hcl 4 Mg/2 Ml Vial) 4 mg IVPUSH Q8H PRN PRN Reason: Nausea and Vomiting Pharmacy Consult (Consult Rx Vancomycin Dosing) 1 each MISCELLANE DAILY PRN PRN Reason: Consult order Pharmacy Consult (Consult Rx Perform Med Rec) 1 each MISCELLANE ONCE PRN PRN Reason: Consult order Sertraline HCl (Sertraline Hcl 25 Mg Tablet) 25 mg PO DAILY [facility] Sodium Chloride (0.9 % Sodium Chloride Flush 3 Ml Syringe) 3 ml IVFLUSH QSHIFT [facility] Last Admin: 05/08/23 13:48 Dose: Not Given Sucralfate (Sucralfate 1 Gm Tablet) 1 gm PO BID [facility] Home Medications Medication Instructions Recorded Confirmed Last Taken Type methocarbamol 750 mg tablet 750 mg PO BEDTIME 05/08/23 05/08/23 05/07/23 History metronidazole 500 mg tablet 500 mg PO QID 05/08/23 05/08/23 05/07/23 History naproxen 500 mg tablet 500 mg PO BID 05/08/23 05/08/23 05/07/23 History pantoprazole 20 mg tablet,delayed 20 mg PO BID 05/08/23 05/08/23 05/07/23 History release sertraline 25 mg tablet 25 mg PO DAILY 05/08/23 05/08/23 05/07/23 History tetracycline 500 mg capsule 500 mg PO QIDACHS 05/08/23 05/08/23 05/07/23 History Physical Exam Vital Signs: Vital Signs: Last Vital Signs Temp 97.7 F 05/08/23 13:12 Pulse 57 05/08/23 13:12 Resp 18 05/08/23 13:12 BP 130/83 05/08/23 13:12 Pulse Ox 98 05/08/23 13:12 O2 Del Method Room Air 05/08/23 13:12 BMI result Body Mass Index 31.4 Const: General: cooperative HEENT: Head: Yes normal to inspection Face and sinus: Yes normal facial exam Mouth: Normal oral and palatal mucosa present Teeth and gingiva: dentition normal Eyes: General: appearance normal, both eyes and all related structures Pupils: Equal, round and reactive pupils present Resp: Effort & Inspection: normal respiratory effort Cardio: Rate: regular rate Rhythm: regular rhythm GI: Palpation (GI): Soft to palpation and nontender : General: Yes no CVA tenderness Back/Spine/Pelvis: Back: no CVA tenderness Skin: General skin exam: no rashes or lesions noted Neuro: General: moves all extremities Cranial nerves: Yes Equal, round and reactive pupils present Extrem: Other: left leg swelling around circumscribed hot round 2 cm pustular area Psych: Appearance: grossly normal Results Labs 05/08/23 04:57 05/08/23 04:57 Labs: Short CBC 05/08/23 05/08/23 Range/Units 01:27 04:57 WBC 3.1 L 3.1 L (4.8-10.8) X10*3/uL Hgb 8.3 L 7.8 L (12.0-16.0) g/dl Hct 27.9 L 25.8 L (37.0-47.0) % Plt Count 140 L D 129 L (160-400) X10*3/uL BMP 05/08/23 05/08/23 01:27 04:57 Sodium 138 140 Potassium 3.4 3.5 Chloride 109 H 116 H Carbon Dioxide 18 L 18 L BUN 15 11 Creatinine 0.85 0.73 Calcium 9.2 8.2 L D Liver Function 05/08/23 Range/Units 01:27 Total Bilirubin 0.4 (0.0-1.0) mg/dL AST 18 (5-31) U/L ALT 11 (0-31) U/L Alkaline Phosphatase 81 (39-117) U/L Albumin 3.8 (3.5-5.0) g/dL Urine 05/08/23 Range/Units 00:45 Urine Color Yellow Urine Appearance Clear Urine pH 6.0 (5.0-9.0) Ur Specific [place] 1.010 (1.005-1.025) Urine Protein Negative (Neg-Trace) mg/dL Urine Glucose (UA) Negative (Negative) mg/dL Microbiology Microbiology Results: Microbiology 05/08/23 03:02 Leg Right Gram Stain - Final Assessment and Plan (1) Cellulitis: Status: Acute Although she is [facility] she hasnt been there lately. She has no orf or rat or mouse bites. She has probable MRSA with gram positive cocci in smear. (2) Fever: Status: Acute (3) Sepsis: Status: Acute Plan Would continue Vancomycin. Await culture tomorrow and possible Bactrim or Doxycycline to cover if this is MRSA for 14 days Also antibacterial chlohexidine solution 2-3 times a week. Time Spent With Patient Time: Total time managing care of this patient today ____ minutes.
--- NOTE | 2023-05-08 16:14 | PC.NURSE ---
MD informed of pt's c/o itching body wide and burning to chest, pt stated feels like heart burn. MD assessed pt at bedside. [employer] Umpire services used throughout entire assessment and med pass. ECG to be obtained. Holding off on benadryl dose d/t pt being drowsy/lethargic. Maalox to be given for heartburn. Family at bedside. abx from home currently on hold d/t pt stated she has been having side effects since using it. was informed of this by the pt.
--- NOTE | 2023-05-09 00:44 | MHC.PIE ---
p; pt c/o food stuck in stomach/throat: pt reports burning like feeling. ? heartburn? pt also c/o buring pain to rt back and h/a i; dr jin notified; new order Maalox. prn Tylenol and prn Benadryl given e; will cont to monitor
[2023-05-09 03:34] VITALS: BP 118/75; PULSE 52; RESP 19; TEMP 35.9; O2SAT 99
[2023-05-09 03:47] VITALS: TEMP 36.5
--- NOTE | 2023-05-09 03:54 | MHC.PIE ---
p; pt c/o chest pain using the television actor service . note pain reproducible. i;dr jin notified; new order ekg now. trop now. simithicone now. toradol now e; ekg wnl. awaiting trop result. will cont to monitor
[2023-05-09 07:16] VITALS: BP 139/82; PULSE 50; RESP 20; TEMP 36.6; O2SAT 97
--- NOTE | 2023-05-09 10:29 | HO.PM.IMPN ---
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 she denies recent travel, sick contacts, sob, cough, abdominal pain, nausea, vomiting, diarrhea. she had pain at right leg wound - started several days ago as pustule, doesn't think it was a bug bite Review of Systems Review of Systems: Yes all other systems are reviewed and are negative Constitutional Constitutional: Denies chills and Reports fever(s) ENT Ears, Nose, Mouth, and Throat: Denies dizziness Cardiovascular Cardiovascular: Denies chest pain, Denies claudication and Denies dyspnea Respiratory Respiratory: Denies cough and Denies dyspnea Gastrointestinal Gastrointestinal: Denies abdominal pain, Denies diarrhea, Denies nausea and Denies vomiting Neurologic Neurologic: Denies dizziness Physical Exam Vital Signs: Vital Signs: Last Vital Signs Temp 97.9 F 05/09/23 07:16 Pulse 50 05/09/23 07:16 Resp 20 05/09/23 07:16 BP 139/82 05/09/23 07:16 Pulse Ox 97 05/09/23 07:16 O2 Del Method Room Air 05/09/23 07:16 BMI result Body Mass Index 31.4 Objective Data Active Medications Acetaminophen (Acetaminophen 325 Mg Tablet) 650 mg PO Q6H PRN PRN Reason: Pain, Mild (Pain Scale 1-3) Last Admin: 05/08/23 22:56 Dose: 650 mg Documented By: DELTA Diphenhydramine HCl (Diphenhydramine Hcl 25 Mg Capsule) 25 mg PO Q6H PRN PRN Reason: Itching Last Admin: 05/08/23 22:57 Dose: 25 mg Documented By: DELTA Enoxaparin Sodium (Enoxaparin Sodium 40 Mg/0.4 Ml Syringe) 40 mg SUBCUT Q24H LUCIANO Last Admin: 05/09/23 03:43 Dose: 40 mg Documented By: DELTA Vancomycin HCl 1,250 mg/ (Sodium Chloride) 250 mls @ 166.667 mls/hr IV Q12H LUCIANO Last Infusion: 05/09/23 05:00 Dose: 0 mls/hr Documented By: DELTA Lactated Ringer's (Lr) 1,000 mls @ 125 mls/hr IVCONT .Q8H [facility] Last Admin: 05/09/23 07:35 Dose: 125 mls/hr Documented By: BROWN Melatonin (Melatonin 3 Mg Tablet) 6 mg PO BEDTIME PRN PRN Reason: Insomnia Methocarbamol (Methocarbamol 750 Mg Tablet) 750 mg PO BEDTIME [facility] Metronidazole (Metronidazole 500 Mg Tablet) 500 mg PO QID [facility] Last Admin: 05/09/23 09:37 Dose: 500 mg Documented By: BROWN (Tetracycline 500 Mg (Capsule)) 500 mg PO QIDACHS [facility] Last Admin: 05/08/23 15:48 Dose: 500 mg Documented By: RAUL Omeprazole (Omeprazole 20 Mg Capsule.) 20 mg PO DAILY@0630 [facility] Last Admin: 05/09/23 05:34 Dose: 20 mg Documented By: DELTA Omeprazole (Omeprazole 20 Mg Capsule.) 20 mg PO BID@0630,1630 [facility] Last Admin: 05/09/23 05:34 Dose: 20 mg Documented By: DELTA Ondansetron HCl (Ondansetron Hcl 4 Mg/2 Ml Vial) 4 mg IVPUSH Q8H PRN PRN Reason: Nausea and Vomiting Pharmacy Consult (Consult Rx Vancomycin Dosing) 1 each MISCELLANE DAILY PRN PRN Reason: Consult order Pharmacy Consult (Consult Rx Perform Med Rec) 1 each MISCELLANE ONCE PRN PRN Reason: Consult order Sertraline HCl (Sertraline Hcl 25 Mg Tablet) 25 mg PO DAILY [facility] Last Admin: 05/09/23 09:37 Dose: 25 mg Documented By: BROWN Sodium Chloride (0.9 % Sodium Chloride Flush 3 Ml Syringe) 3 ml IVFLUSH QSHIFT [facility] Last Admin: 05/09/23 07:36 Dose: Not Given Documented By: BROWN Non-Admin Reason: IV Running Sucralfate (Sucralfate 1 Gm Tablet) 1 gm PO BID [facility] Last Admin: 05/09/23 09:37 Dose: 1 gm Documented By: BROWN Labs 05/09/23 05:34 05/09/23 05:34 Labs: Laboratory Results - last 24 hr 05/08/23 05/09/23 05/09/23 10:20 03:29 05:34 MCV MCH MCHC RDW Plt Count MPV Immature Gran % (Auto) Neut % (Auto) Lymph % (Auto) [place] % (Auto) Eos % (Auto) Baso % (Auto) Lymph # (Auto) [place] # (Auto) Eos # (Auto) Baso # (Auto) Abs Immat Gran (auto) Absolute Neuts (auto) Absolute Nucleated RBC Nucleated RBC % (auto) Smear Tech's Comments Anion Gap 11 L Estim Creat Clear Calc 118.5 Estimated GFR > 60 Random Glucose 93 Calcium 8.4 Troponin I High Sens < 2.7 Respiratory Panel Cat See Note Adenovirus (Rapid PCR) Not Detected B.pert (TEM-PCR) Not Detected B.parapertussis DNA PCR Not Detected C. pneumoniae DNA (PCR) Not Detected Coronavirus OC43 (PCR) Not Detected Coronavirus HKU1 (PCR) Not Detected Coronavirus 229E (PCR) Not Detected Coronavirus NL63 (PCR) Not Detected Human Metapneumovir PCR Not Detected Influenza A (RT-PCR) Not Detected Influenza B (RT-PCR) Not Detected M. pneumoniae (PCR) Not Detected Parainfluenza 1 (PCR) Not Detected Parainfluenza 2 (PCR) Not Detected Parainfluenza 3 (PCR) Not Detected Parainfluenza 4 (PCR) Not Detected RSV (PCR) Not Detected Entero/Rhino (PCR) Not Detected SARS-CoV-2 RNA (RT-PCR) Not Detected 05/09/23 05:34 MCV 71.9 L MCH 21.2 L MCHC 29.5 L RDW 15.2 Plt Count 152 L MPV 10.5 Immature Gran % (Auto) 0.3 Neut % (Auto) 24.1 L Lymph % (Auto) 63.0 H [place] % (Auto) 8.3 Eos % (Auto) 4.0 Baso % (Auto) 0.3 Lymph # (Auto) 2.2 [place] # (Auto) 0.3 Eos # (Auto) 0.1 Baso # (Auto) 0.0 Abs Immat Gran (auto) 0.01 Absolute Neuts (auto) 0.8 L Absolute Nucleated RBC 0.000 Nucleated RBC % (auto) 0.0 Smear Tech's Comments VERIFIED Anion Gap Estim Creat Clear Calc Estimated GFR Random Glucose Calcium Troponin I High Sens Respiratory Panel Cat Adenovirus (Rapid PCR) B.pert (TEM-PCR) B.parapertussis DNA PCR C. pneumoniae DNA (PCR) Coronavirus OC43 (PCR) Coronavirus HKU1 (PCR) Coronavirus 229E (PCR) Coronavirus NL63 (PCR) Human Metapneumovir PCR Influenza A (RT-PCR) Influenza B (RT-PCR) M. pneumoniae (PCR) Parainfluenza 1 (PCR) Parainfluenza 2 (PCR) Parainfluenza 3 (PCR) Parainfluenza 4 (PCR) RSV (PCR) Entero/Rhino (PCR) SARS-CoV-2 RNA (RT-PCR) Microbiology Microbiology Results: Microbiology 05/08/23 03:02 Gram Stain - Final Leg Right Routine Culture - Preliminary Staphylococcus aureus 05/08/23 01:28 Blood Culture - Preliminary Blood - Venous No growth after 24 hours. 05/08/23 01:28 Blood Culture - Preliminary Blood - Venous No growth after 24 hours. Assessment and Plan (1) Cellulitis: Status: Acute (2) Fever: Status: Acute Assessment and Plan: This is a 37-year-old [place] speaking female with history of gastroesophageal reflux disease who presents to the emergency department for evaluation of fevers. Sepsis possibly due to purulent cellulitis, although area of involvement is small UA, CXR, negative met sepsis criteria with fever, tachycardia, leukopenia, lactic acidosis, fever and tachycardia resolved s/p 30 cc/kg bolus in ED, bp soft, will continue IVF continue IV vancomycin blood cultures pending RPP pending ID following>follow cx Acute lactic acidosis due to sepsis continue IVF chronic Microcytic anemia pt reports h/o anemia, but does not know cause or baseline H/H stool occult negative reports menorrhagia Obtaining iron panel GERD recently diagnosed with h.pylori continue triple abx therapy, end date 05/21 continue carafate DVT prophylaxis:? Lovenox Full code Regular diet attending - dr. Varela Requires ongoing hospital stay for IV antibiotics Time Spent With Patient Time: Total time managing care of this patient today ____ minutes. Quality Stroke Does the patient have a stroke diagnosis?: No VTE Prior VTE?: No VTE Risk Level:: Medical - moderate - high VTE Device Contraindication: Treatment Not Indicated VTE Drug Contraindication: N/A - Med Ordered
--- NOTE | 2023-05-09 12:12 | HE.PHANOTE ---
vancomycin addendum Increased to 1250 mg q 8 hours due to level of 10.5, will recheck level sanchez
[2023-05-09 16:00] VITALS: BP 135/45; PULSE 49; RESP 20; TEMP 37.2; O2SAT 96
[2023-05-09 19:51] VITALS: BP 126/82; PULSE 50; RESP 20; TEMP 36.4; O2SAT 98
[2023-05-10 04:00] VITALS: BP 132/64; PULSE 57; RESP 18; TEMP 36.6; O2SAT 100
[2023-05-10 06:30] LABS: Creatinine Clr Calc Pharmacy 111.5; Estimated Glomerular Filt Rate > 60
[2023-05-10 07:38] VITALS: BP 152/89; PULSE 57; RESP 20; TEMP 36.6; O2SAT 99
--- NOTE | 2023-05-10 12:08 | P.DS_ITS ---
DS: Providers Provider Date of Service: 05/10/23 Date of admission: 05/08/23 02:43 Primary care physician: Unknown Physician Consults: 05/08/23 09:50 Consult to Infectious Diseases Routine Consulting Provider: [facility] [place] [facility] Reason for consultation: fever, unclear source, ?RLE cellulitis Has provider been notified: No DS: Diagnosis Discharge Diagnosis (1) Cellulitis: Status: Acute (2) Fever: Status: Acute DS: Summary Hospital Course Hospital Course: HPI as per admitting provider This is a 37-year-old female with pertinent history of gastroesophageal reflux disease who presents to the emergency department for evaluation of fevers.? Patient states that started on the day of presentation.? It is associated with headache and generalized body ache.? On further investigation, patient states that she has a wound on right lower extremity which is tender, red and warm.? It has been draining purulent foul- smelling discharge on the day of presentation.? Patient states this is due to ingrown hair.? Patient admits fevers and chills.? She denies cough, shortness of breath, palpitations, chest discomfort abdominal pain, changes in urinary or bowel habits. In the emergency department, patient was found to be septic . 37-year-old woman admitted for sepsis secondary purulent cellulitis on right lower extremity. She met sepsis criteria with fever, tachycardia, leukopenia, lactic acidosis which all resolved after treatment with IV vancomycin as well as 30 grams/kg IV fluid bolus. Blood cultures were negative after 48 hours. Wound culture from lower extremity was positive for MRSA. Seen evaluated by Infectious Disease provider with recommendation for 14 days of doxycycline on discharge. She was also noted to have chronic microcytic anemia with low iron. She was started on ferous sulfate 325 mg 3 times daily. Check CBC in 1 week She should continue this at home and follow-up with her primary care provider for further testing. Patient should also continue her previously started treatment for H pylori with tetracycline and Flagyl. Time Spent with Patient Time attestation: Total time managing care of this patient today ____ minutes. Discharge coordination time: Greater than 30 minutes Quality: Safe Use of Opioids Does Pt have an Active Cancer Diagnosis on the Problem List?: No Quality: Stroke Does the patient have a stroke diagnosis?: No Physical Exam Vital Signs: Vital Signs: Last Vital Signs Temp 97.9 F 05/10/23 07:38 Pulse 57 07/09/23 07:38 Resp 20 05/10/23 07:38 BP 152/89 H 05/10/23 07:38 Pulse Ox 99 05/10/23 07:38 O2 Del Method Room Air 05/10/23 07:38 BMI result Body Mass Index 31.4 Appearing in no acute distress head is normocephalic atraumatic eyes pupils are PERRLA sclera is anicteric mouth throat mucous membranes are intact and moist neck is supple no lymphadenopathy, no JVD noted lung sounds are clear to auscultation heart regular rate rhythm, clear S1, S2 positive bowel sounds, abdomen is soft, nontender neuro patient is alert x3, no focal deficits Right leg wound DS: Data Data Completed and Pending Labs on day of discharge: Laboratory Results - last 24 hr 05/10/23 05:47 Creatinine 0.68 Estim Creat Clear Calc 111.5 Estimated GFR > 60 Preliminary micro results at discharge 05/08/23 01:28 Blood Culture - Preliminary Blood - Venous No growth after 48 hours. 05/08/23 01:28 Blood Culture - Preliminary Blood - Venous No growth after 48 hours. Discharge Plan Discharge Anticipated Discharge Date/Time: 05/10/23 11:55 Patient Disposition: Home, Self-Care Discharge Diagnosis: MRSA wound infection Iron deficiency anemia Discharge Medications: New doxycycline hyclate 100 mg tablet 100 mg PO BID Qty: 28 0RF ferrous sulfate 324 mg (65 mg iron) Tablet,Delayed Release (Dr/Ec) 325 mg PO TID Qty: 90 0RF docusate sodium 100 mg Capsule 100 mg PO BID Qty: 60 0RF Continued sucralfate 1 gram tablet 1 g PO BID Qty: 60 0RF tetracycline 500 mg Capsule 500 mg PO QIDACHS Rx Instructions: END DATE: 05/21/23 metronidazole 500 mg Tablet 500 mg PO QID Rx Instructions: END DATE: 05/21/23 pantoprazole 20 mg tablet,delayed release (DR/EC) 20 mg PO BID methocarbamol 750 mg tablet 750 mg PO BEDTIME sertraline 25 mg tablet 25 mg PO DAILY naproxen 500 mg tablet 500 mg PO BID Discharge Orders: Discharge Order (Routine); Ordered 05/10/23 Ordered By: Blaire López Diet: Advance to usual diet Activity on Discharge: As tolerated Stand Alone Forms: Patient Portal Discharge page Other Ambulatory Orders: Complete Blood Count no Diff (Routine) Timeframe: 1 Week Facility: [facility] - Location: Laboratory Ordered By: Blaire López Care Plan Goals: May use chlorhexidine solution 2 to 3 times a week to clean wound started on iron supplementation for iron deficiency anemia Health Concerns: MRSA wound infection Iron deficiency anemia Plan of Treatment: Follow-up with primary care provider within 1 week check CBC in 1 week complete course of antibiotics for MRSA wound infection Continue your current treatment for H pylori you were started on prior to admission Assessment: See discharge summary
--- NOTE | 2023-05-10 12:15 | MHC.CM.PN ---
pt dcd home today transported by allie
[2023-05-10 12:26] LABS: Vancomycin Trough 22.4 mcg/mL (10.0-20.0)
--- NOTE | 2023-05-10 12:43 | HE.PHANOTE ---
RE:VANCO Level came back high at 22.4 after dose change 1250 q8h. Change dose again to 1500 q12h with another level to be obtained 05/11 @0800. Insight shows auc 518 with new dosing.
== END 2023-05-10 12:47 | disposition home or self-care (01) | DRG 720 ==
LOC: HO.ED 05-08 00:25 → HO.EDOVER 05-08 02:46 → HO.S3 05-08 05:26
PROVIDERS: Admitting Provider Student in an Organized Health Care Education/Training Program; Emergency Provider Internal Medicine; PCP Internal Medicine; Visit Provider Nurse Practitioner Acute Care
DX: A41.9 Sepsis, unspecified organism (principal); E87.21 Acute metabolic acidosis; D50.9 Iron deficiency anemia, unspecified; B95.62 Methicillin resistant Staphylococcus aureus infection as the cause of diseases classified elsewhere; L03.115 Cellulitis of right lower limb; K21.9 Gastro-esophageal reflux disease without esophagitis; Z20.822 Contact with and (suspected) exposure to COVID-19; Z79.899 Other long term (current) drug therapy
CPT/HCPCS: 36415; 70450; 80048; 80053; 80202; 81003; 81025; 82565; 83540; 83605; 84484; 85025; 87040; 87070; 87077; 87186; 87205; 87633; 87635; 93005; 99221; 99285; J0696; J1650; J1885; J3370; J3371

== ENCOUNTER → 2023-05-08 02:43 | Outpatient (BNV) | payer MEDICAID, SELFPAY | PROVIDERS: Admitting Provider Student in an Organized Health Care Education/Training Program; Emergency Provider Internal Medicine; Visit Provider Student in an Organized Health Care Education/Training Program | DX: L03.90 Cellulitis, unspecified (principal); R50.9 Fever, unspecified | CPT/HCPCS: 99222; 99232; 99239; 99499 ==

== ENCOUNTER 2023-05-22 18:44 | Emergency (ER) | payer MEDICAID, SELFPAY ==
--- NOTE | 2023-05-22 19:44 | ED.GENADULT ---
HPI - General Adult General Chief complaint: General Medical Stated complaint: abd pain Time Seen by Provider: 05/23/23 01:28 Source: patient Mode of arrival: ambulatory Limitations: language barrier History of Present Illness HPI narrative: patient's history of gastritis for more than 7 moved from [facility] 8 months ago increased stress is still complaining heart with sour taste supposed to see electrical tryout person in 08/24 was here last week for same Related Data Home Medications Medication Instructions Recorded Confirmed methocarbamol 750 mg tablet 750 mg PO BEDTIME 05/08/23 05/08/23 metronidazole 500 mg tablet 500 mg PO QID 05/08/23 05/08/23 naproxen 500 mg tablet 500 mg PO BID 05/08/23 05/08/23 pantoprazole 20 mg tablet,delayed 20 mg PO BID 05/08/23 05/08/23 release sertraline 25 mg tablet 25 mg PO DAILY 05/08/23 05/08/23 tetracycline 500 mg capsule 500 mg PO QIDACHS 05/08/23 05/08/23 Previous Rx's Medication Instructions Recorded sucralfate 1 gram tablet 1 g PO BID #60 tabs 05/01/23 docusate sodium 100 mg capsule 100 mg PO BID #60 caps 05/10/23 doxycycline hyclate 100 mg tablet 100 mg PO BID #28 tabs 05/10/23 ferrous sulfate 324 mg (65 mg 325 mg PO TID #90 tabs 05/10/23 iron) tablet,delayed release aluminum-mag hydroxide-simethicone 10 ml PO TID PRN indigestion #240 05/23/23 400 mg-400 mg-40 mg/5 mL oral susp mL (Maalox Maximum Strength) lorazepam 1 mg tablet (Ativan) 1 mg PO BEDTIME PRN anxiety #10 05/23/23 tabs Allergies Allergy/AdvReac Type Severity Reaction Status Date / Time No Known Allergies Allergy Verified 05/22/23 19:51 Review of Systems Review of Systems: Yes all other systems are reviewed and are negative [facility] Past Medical History Medical History Anemia Depression GERD (gastroesophageal reflux disease) H. pylori infection Social History Social History Household Members: Spouse, Family and Children Housing: House Do you presently have visiting nurse or other home services: No Alcohol intake: never Patient Tobacco Use Status: Never used Tobacco Advance Directives: No Advance Directives Information Provided: Yes service: No Physical Exam ED Vital Signs: Vital Signs - 24 hr 05/22/23 19:45 05/23/23 00:36 Temperature 96.8 F 98.3 F Pulse Rate 63 61 Respiratory Rate 20 18 Blood Pressure 127/74 118/88 Pulse Oximetry 100 Oxygen Delivery Method Room Air Room Air BMI result Body Mass Index 30.5 Appearance: Alert. Oriented X3. No acute distress. looks anxious Eyes: no pallor or icterus ENT: Pharynx normal. Oral Mucosa moist Neck: Normal inspection. Neck supple. CVS: Normal heart rate and rhythm. Pulses normal. Respiratory: No respiratory distress. Equal air entry bilateral, no wheezing/rales/rhonchi Abdomen: Soft , tenderness in epigastric area, Bowel sounds are present, no mass palpable, no CVA tenderness Skin: Skin warm and dry. Normal skin color. Normal skin turgor. Extremities: No lower extremity edema. No calf tenderness Neuro: Oriented X 3. Course Course Course Narrative: RME performed by Crystal Goss PA-C. Patient is a 37 year old assigned female at , [place] speaking only, presenting to the emergency department with abdominal pain and feeling as though it is difficult to eat. Labs ordered. Patient placed back in the waiting room pending room availability and results. Medical Decision Making Lab Data MDM Lab Attestation statement: I reviewed the patient's lab results. 05/22/23 22:16 05/22/23 22:16 Labs: Lab Results 05/22/23 05/22/23 05/22/23 Range/Units 22:16 22:16 22:17 WBC 6.3 (4.8-10.8) X10*3/uL RBC 4.14 L D (4.20-5.50) X10*6/uL Hgb 8.7 L D (12.0-16.0) g/dl Hct 29.2 L D (37.0-47.0) % MCV 70.5 L (80.0-98.0) fL MCH 21.0 L (27.0-33.0) pg MCHC 29.8 L (31.0-35.0) g/dl RDW 15.4 (11.0-16.0) % Plt Count 278 D (160-400) X10*3/uL MPV 9.9 (9.4-12.3) fL Immature Gran % (Auto) 0.3 (0.0-0.4) % Neut % (Auto) 54.4 (45-73) % Lymph % (Auto) 38.1 (20-40) % [place] % (Auto) 5.6 (2-11) % Eos % (Auto) 1.3 (0-4) % Baso % (Auto) 0.3 (0-2) % Lymph # (Auto) 2.4 (1.2-4.9) X10*3/uL [place] # (Auto) 0.4 (0.1-1.2) X10*3/uL Eos # (Auto) 0.1 (0.0-0.4) X10*3/uL Baso # (Auto) 0.0 (0.0-0.2) X10*3/uL Abs Immat Gran (auto) 0.02 (0.00-0.03) X10*3/uL Absolute Neuts (auto) 3.4 (2.0-8.3) x10*3/uL Absolute Nucleated RBC 0.000 (0.0-0.012) X10*3/uL Nucleated RBC % (auto) 0.0 (0.0-0.2) /100WBC Sodium 137 (135-145) mmol/L Potassium 4.6 D (3.3-5.1) mmol/L Chloride 105 (96-108) mmol/L Carbon Dioxide 24 (22-29) mmol/L Anion Gap 13 (12-20) BUN 13 (9-16) mg/dL Creatinine 0.73 (0.5-1.4) mg/dL Estim Creat Clear Calc 103.6 Estimated GFR > 60 Random Glucose 86 (60-115) mg/dL Calcium 9.6 D (8.4-10.2) mg/dL Magnesium 2.1 (1.6-2.6) mg/dL Total Bilirubin 0.3 (0.0-1.0) mg/dL AST 30 (5-31) U/L ALT 12 (0-31) U/L Alkaline Phosphatase 84 (39-117) U/L Total Protein 8.5 H (6.5-8.0) g/dL Albumin 4.2 (3.5-5.0) g/dL Urine Color Yellow Urine Appearance Clear Urine pH 6.5 (5.0-9.0) Ur Specific [place] 1.015 (1.005-1.025) Urine Protein Negative (Neg-Trace) mg/dL Urine Glucose (UA) Negative (Negative) mg/dL Urine Ketones Negative (Negative) mg/dL Urine Blood Large (3+) H (Negative) Urine Nitrite Negative (Negative) Ur Leukocyte Esterase Small (1+) H (Negative) Urine RBC 3-5 H (0-2) /HPF Urine WBC 6-10 (0-5) /HPF Ur Squamous Epith Cells 11-20 (0-2) /HPF Urine Bacteria None Seen (None Seen) Hyaline Casts 0-2 (0-2) /LPF Discharge Plan Discharge Clinical Impression: Chronic gastritis Patient Disposition: Home, Self-Care Instructions: Gastritis (ED) Additional Instructions: avoid fried/spicy food continue medications as prescribed medication for anxiety /stress follow with electrical tryout person Prescriptions: New lorazepam [Ativan] 1 mg tablet 1 mg PO BEDTIME PRN (Reason: anxiety) Qty: 10 0RF alum-mag hydroxide-simeth [Maalox Maximum Strength] 400-400-40 mg/5 mL suspension 10 ml PO TID PRN (Reason: indigestion) Qty: 240 0RF No Action sucralfate 1 gram tablet 1 g PO BID Qty: 60 0RF tetracycline 500 mg Capsule 500 mg PO QIDACHS Rx Instructions: END DATE: 05/21/23 metronidazole 500 mg Tablet 500 mg PO QID Rx Instructions: END DATE: 05/21/23 pantoprazole 20 mg tablet,delayed release (DR/EC) 20 mg PO BID methocarbamol 750 mg tablet 750 mg PO BEDTIME sertraline 25 mg tablet 25 mg PO DAILY naproxen 500 mg tablet 500 mg PO BID doxycycline hyclate 100 mg tablet 100 mg PO BID Qty: 28 0RF ferrous sulfate 324 mg (65 mg iron) Tablet,Delayed Release (Dr/Ec) 325 mg PO TID Qty: 90 0RF docusate sodium 100 mg Capsule 100 mg PO BID Qty: 60 0RF Referrals: Paty Martines MD [Physician] - 1 week
[2023-05-22 19:45] VITALS: BP 127/74; PULSE 63; RESP 20; TEMP 36; O2SAT 100; BMI 30.5
--- NOTE | 2023-05-22 22:19 | MHC.EDTECH ---
PATIENT BLOOD DRAWN AND URINE SAMPLE COLLECTED AND SENT TO LAB .
[2023-05-22 22:21] LABS: MANUAL DIFF FLAG NO
[2023-05-22 22:22] LABS: Basophils Percent Auto 0.3 % (0-2); Eosinophils Absolute Auto 0.1 X10*3/uL (0.0-0.4); Eosinophils Percent Auto 1.3 % (0-4); Hematocrit 29.2 % (37.0-47.0); Hemoglobin 8.7 g/dl (12.0-16.0); Imm Gran Abs Auto 0.02 X10*3/uL (0.00-0.03); Imm Gran Pct Auto 0.3 % (0.0-0.4); Lymphocytes Absolute Auto 2.4 X10*3/uL (1.2-4.9); Lymphocytes Percent Auto 38.1 % (20-40); Mean Corpuscular HGB Conc 29.8 g/dl (31.0-35.0); Mean Corpuscular Volume 70.5 fL (80.0-98.0); Mean Platelet Volume 9.9 fL (9.4-12.3); Monocytes Absolute Auto 0.4 X10*3/uL (0.1-1.2); Monocytes Percent Auto 5.6 % (2-11); Neutrophils Absolute Auto 3.4 x10*3/uL (2.0-8.3); Neutrophils Percent Auto 54.4 % (45-73); Platelet Count 278 X10*3/uL (160-400); Red Blood Count 4.14 X10*6/uL (4.20-5.50); Red Cell Distribution Width 15.4 % (11.0-16.0); White Blood Count 6.3 X10*3/uL (4.8-10.8)
[2023-05-22 22:24] LABS: Appearance Urine Clear; Color Urine Yellow; Glucose Urine UA Negative (Negative); Leukocyte Esterase Urine Small (1+) (Negative); Nitrite Urine Negative (Negative); PH 6.5 (5.0-9.0); Specific Gravity - Urine 1.015 (1.005-1.025); UMIC TRIGGER UACC YES; Urine Blood Large (3+) (Negative); Urine Ketones Negative (Negative); Urine Protein Negative (Neg-Trace)
[2023-05-22 22:35] LABS: Bacteria Urine None Seen (None Seen); Hyaline Casts Urine 0-2 /LPF (0-2); UACC Culture Trigger YES
[2023-05-22 22:37] LABS: Alanine Aminotransferase 12 U/L (0-31); Albumin Level 4.2 g/dL (3.5-5.0); Alkaline Phosphatase 84 U/L (39-117); Anion Gap 13 (12-20); Aspartate Amino Transferase 30 U/L (5-31); Bilirubin Total 0.3 mg/dL (0.0-1.0); Blood Urea Nitrogen 13 mg/dL (9-16); Calcium 9.6 mg/dL (8.4-10.2); Carbon Dioxide 24 mmol/L (22-29); Chloride 105 mmol/L (96-108); Creatinine Clr Calc Pharmacy 103.6; Estimated Glomerular Filt Rate > 60; Glucose Random 86 mg/dL (60-115); Magnesium 2.1 mg/dL (1.6-2.6); Potassium 4.6 mmol/L (3.3-5.1); Sodium 137 mmol/L (135-145); Total Protein 8.5 g/dL (6.5-8.0)
--- NOTE | 2023-05-22 23:03 | PC.NURSE ---
Reporting headache at this time. manager mountain (Britta Oneal) aware.
[2023-05-23 00:36] VITALS: BP 118/88; PULSE 61; RESP 18; TEMP 36.8
[2023-05-23] MEDS: LORazepam 1 MG TABLET PO (02:52)
[2023-05-23] MEDS: Lidocaine HCl 4 % Laryng-O-Jet 4 ML 1 APPL TOPICAL (02:53)
[2023-05-23] MEDS: Magnesium Hydrox/Alum Hydrox 30 ML ORAL.SUSP PO (02:53)
--- NOTE | 2023-05-23 03:13 | PC.NURSE ---
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 Pt reports 10/10 constant burning pain to throat radiating to esophagus x 1 month, Pt states she was seen here for same reason. Pt reports not being able eat, denies vomiting. Pt speaking in full sentences, no apparent distress noted. VSS.
== END 2023-05-23 03:21 | disposition home or self-care (01) ==
PROVIDERS: Physician Assistant Medical; Emergency Provider Internal Medicine
DX: K29.50 Unspecified chronic gastritis without bleeding (principal)
CPT/HCPCS: 36415; 80053; 81001; 83735; 85025; 87086; 99283; 99284

== ENCOUNTER 2023-06-08 11:02 | Outpatient (REF) | payer MEDICAID, SELFPAY ==
[2023-06-08 14:30] LABS: Hematocrit 29.1 % (37.0-47.0); Hemoglobin 8.4 g/dl (12.0-16.0); Mean Corpuscular HGB Conc 28.9 g/dl (31.0-35.0); Mean Corpuscular Hemoglobin 20.4 pg (27.0-33.0); Mean Corpuscular Volume 70.8 fL (80.0-98.0); Mean Platelet Volume 10.1 fL (9.4-12.3); Platelet Count 196 X10*3/uL (160-400); Red Blood Count 4.11 X10*6/uL (4.20-5.50); Red Cell Distribution Width 16.3 % (11.0-16.0); White Blood Count 4.2 X10*3/uL (4.8-10.8)
[2023-06-08 15:49] LABS: Ferritin 7 ng/mL (10-122); Vitamin D 25-OH Total 16.8 ng/mL (>30)
[2023-06-09 13:48] LABS: Transglutaminase IgA <1.0 U/mL
[2023-06-09 16:37] LABS: Immunoglobulin A 209 mg/dL (47-310)
[2023-06-11 17:18] LABS: Hematocrit 28.1 % (35.0-45.0); Hemoglobin 8.5 g/dL (11.7-15.5); MCH 20.6 pg (27.0-33.0); MCV 68.2 fL (80.0-100.0); RBC 4.12 Million/uL (3.80-5.10); RDW 15.8 % (11.0-15.0)
== END 2023-06-08 11:03 | disposition home or self-care (01) ==
LOC: HO.LAB 11:02
PROVIDERS: Visit Provider Internal Medicine
DX: R10.13 Epigastric pain (principal); D64.9 Anemia, unspecified; A04.8 Other specified bacterial intestinal infections
CPT/HCPCS: 36415; 82306; 82728; 82784; 83020; 85014; 85018; 85027; 85041; 86364; 99202

== ENCOUNTER 2023-06-08 11:02 | Outpatient (AMB) | payer MEDICAID, SELFPAY ==
--- NOTE | 2023-06-08 11:04 | A.OFFVIS_ITS ---
Intake Vital Signs 06/08/23 11:10 Height 5 ft 2 in Weight 169 lb 8.821 oz BMI 31.0 BP 123/68 Blood Pressure Location Lt brachial Position Sitting Pulse 75 Intake Visit Reasons: Epigastric pain Intake Note: Ermelinda presents in the office as a new patient for epigastric pains. CC: She states that she has never had a colonoscopy and no family hx of colon cancer. States that she is having pains in her stomach. She gets some constipation but denies diarrhea. Track Laying Supervisor Required: Yes Track Laying Supervisor Name: Bennie [id number] Allergies No Known Allergies Allergy (Verified 06/08/23 11:11) HPI HPI Comments History of Present Illness Details 37y.o F Afghani dayton speaking who is here for worsening of epigastric pain. Reports longstanding hx of acid reflux which has been managed on pepcid however for the past one month her discomfort has worsened and not gotten better despite adding omeprazole BID. No difficulty swallowing, but does report occ nausea. She was also recently diagnosed with H Pylori and was treated with quad therapy but unclear if he had a TIN. Pt was also noted to have severe microcytic anemia. Reports normal flow for her periods - changes pads 5-6 times a day. No melena or hematochezia reported. [facility] Medical History (Updated 06/08/23 @ 11:55 by Erica Carpenter MD) Anemia Depression GERD (gastroesophageal reflux disease) H. pylori infection Social History Household Members: Spouse, Family and Children Housing: House Do you presently have visiting nurse or other home services: No Alcohol intake: never Patient Tobacco Use Status: Never used Tobacco service: No Review of Systems Const All systems reviewed & are unremarkable except as noted in HPI and below Physical Exam Vital Signs: Last Vital Signs Pulse 75 06/08/23 11:10 BP 123/68 06/08/23 11:10 BMI result Body Mass Index 31.0 Gen appear: NAD HEENT: nonicteric, no cervical lymphadenopathy Chest: CTA CVS: Regular S1/S2 Abd: soft, nontender, nondistended, bowel sounds + Ext: no peripheral edema Neuro: A/Ox3, noted to move all extremities spontaneously Psych: interacting appropriately Assessment & Plan Assessment & Plan (1) Anemia: Code(s): D64.9 - Anemia, unspecified (2) Epigastric pain: Code(s): R10.13 - Epigastric pain (3) H. pylori infection: Code(s): A04.8 - Other specified bacterial intestinal infections Plan 1. Postprandial epigastric pain: Ddx include GERD, esophagitis/gastritis, PUD, hypersensitive esophagus, dysmotility, celiac. Labs ordered as below. Carafate liquid 10ml QID Rxed in hte meantime Cont omeprazole 40 BID EGD to be booked ([place], so this will be scheduled for when she returns) 2. Iron deficiency anemia: Repeat iron indices ordered. Since she has normal RDW, will also check for thallasemia. Labs ordered A colonoscopy will be booked at the same time as the EGD for completion of work up. Follow up after scopes Orders: Orders Ferritin Today R10.13 - Epigastric pain Vitamin D 25-OH Total Today R10.13 - Epigastric pain FL upper GI w Ba Swallow Today R10.13 - Epigastric pain Complete Blood Count no Diff Today R10.13 - Epigastric pain Immunoglobulin A Today R10.13 - Epigastric pain Transglutaminase IgA Today R10.13 - Epigastric pain H pylori Ag Stool Today R10.13 - Epigastric pain Hemoglobin Electrophoresis Today D64.9 - Anemia, unspecified Medications: New peg 3350-electrolytes 236-22.74-6.74 -5.86 gram (Golytely) as per split prep instructions, until fecal effluent is clear 240 mL PO Q10M 4,000 mL 0RF colonoscopy sucralfate (Carafate) 10 mL PO QIDACHS 414 mL 0RF 2 weeks Discontinued sucralfate Discontinued Reason: Doctor's Order 1 g PO BID 60 tabs 0RF Coding Level of Care Code New Pt Level 4 (91952) Diagnoses Anemia D64.9 Epigastric pain R10.13 H. pylori infection A04.8
[2023-06-08 11:10] VITALS: BP 123/68; PULSE 75; BMI 31.0
== END 2023-06-08 12:03 | disposition home or self-care (01) ==
PROVIDERS: Visit Provider Internal Medicine
DX: D64.9 Anemia, unspecified (principal); R10.13 Epigastric pain; A04.8 Other specified bacterial intestinal infections
CPT/HCPCS: 99204

== ENCOUNTER 2023-08-20 09:38 | Day surgery (SDC) | payer MEDICAID, SELFPAY ==
[2023-08-18 09:01] VITALS: BMI 31.1
--- NOTE | 2023-08-19 12:09 | HO.ANESPROP2 ---
Documented by User: Carlota Mackay NP 08/19/23 12:11 HPI - Anesthesia Eval Consult details Narrative: 38yo F for Upper Endoscopy and Colonoscopy PMF Active Problems Active Problems: All Active Problems (Updated 06/08/23 @ 11:55 by Erica Carpenter MD) Epigastric pain (Acute) H. pylori infection (Acute) Anemia (Acute) Past Medical History Medical History (Updated 06/08/23 @ 11:55 by Erica Carpenter MD) Depression Anemia GERD (gastroesophageal reflux disease) H. pylori infection Surgical History Surgical History (Updated 08/18/23 @ 08:56 by Latia Echeverria RN) Surgical history unknown Social History Social History Household Members: Spouse, Family and Children Housing: House Do you presently have visiting nurse or other home services: No Alcohol intake: never Patient Tobacco Use Status: Never used Tobacco service: No Meds Allergies Allergy/AdvReac Type Severity Reaction Status Date / Time No Known Allergies Allergy Verified 06/08/23 11:11 Home Medications Medication Instructions Recorded Confirmed Last Taken Type naproxen 500 mg tablet 500 mg PO BID 05/08/23 08/18/23 05/07/23 History sertraline 25 mg tablet 25 mg PO DAILY 05/08/23 08/18/23 05/07/23 History famotidine 20 mg tablet 20 mg PO BID 06/08/23 08/18/23 Unknown History omeprazole 40 mg capsule,delayed 40 mg PO BID 06/08/23 08/18/23 Unknown History release Exam Exam Date and Time: August 19, 2023 1209 Height,Weight and Vital Signs: Height 5 ft 2 in Weight 77.111 kg Pertinent Lab Results Pertinent Lab Results: Laboratory Tests 05/22/23 06/08/23 22:16 12:38 WBC 4.2 L Hgb 8.4 L Hct 29.1 L Plt Count 196 D Sodium 137 Potassium 4.6 D Chloride 105 Carbon Dioxide 24 BUN 13 Creatinine 0.73 Narrative Narrative: EKG 05/2023 Vent. Rate : 055 BPM Atrial Rate : 055 BPM P-R Int : 182 ms QRS Dur : 074 ms QT Int : 428 ms P-R-T Axes : 048 012 -02 degrees QTc Int : 409 ms Sinus bradycardia Otherwise normal ECG When compared to the previous EKG of 08 may 2023, anterior leads normalized. Assessment and Plan Assessment Anesthesia Assessment: Chart Reviewed Documented by User: Erasmo Goldstein MD 08/20/23 13:37 [facility] Past Medical History Medical History (Updated 06/08/23 @ 11:55 by Erica Carpenter MD) Depression Anemia GERD (gastroesophageal reflux disease) H. pylori infection Family History Family history of problems with anesthesia: No Surgical History Surgical History (Updated 08/18/23 @ 08:56 by Latia Echeverria RN) Surgical history unknown History of Problems with Anesthesia: No Social History Social History Household Members: Spouse, Family and Children Housing: House Do you presently have visiting nurse or other home services: No Alcohol intake: never Patient Tobacco Use Status: Never used Tobacco service: No Meds Allergies Allergy/AdvReac Type Severity Reaction Status Date / Time No Known Allergies Allergy Verified 06/08/23 11:11 Home Medications Medication Instructions Recorded Confirmed Last Taken Type naproxen 500 mg tablet 500 mg PO BID 05/08/23 08/18/23 05/07/23 History sertraline 25 mg tablet 25 mg PO DAILY 05/08/23 08/18/23 05/07/23 History famotidine 20 mg tablet 20 mg PO BID 06/08/23 08/18/23 Unknown History omeprazole 40 mg capsule,delayed 40 mg PO BID 06/08/23 08/18/23 Unknown History release Exam Airway Mallampati Class: II TM Dist: >3cm Neck ROM: Full Loose/Missing/Broken Teeth: Yes Assessment and Plan Assessment Anesthesia Assessment: Anesthesia Plan Discussed Final Anesthetic Review Family History of Problems with Anesthesia: No History of Problems with Anesthesia: No NPO: Yes ASA Class: II Final Preanesthetic Review: No Changes in Pt Med Stat, Meds/Allgs Chart Reviewed, Consent Obtained/Reviewed and Anes Risks/Benef Reviewed Patient Risk: Low Procedure Risk: Low Anesthetic Plan Anesthetic Plan: MAC: Disposition: Standard PACU
[2023-08-20 10:10] LABS: UPreg QC Valid YES; Urine Pregnancy NEGATIVE (NEGATIVE)
--- NOTE | 2023-08-20 10:15 | MHC.SHP ---
Pre-Procedural Eval Section A Date of Service: 08/20/23 Section B Chief Complaint: Abd pain, anemia Details of Present Illness: PMH: Anemia Depression GERD (gastroesophageal reflux disease) H. pylori infection Present Medications: see Short Stay Collaborative assessment Allergies: Allergies Allergy/AdvReac Type Severity Reaction Status Date / Time No Known Allergies Allergy Verified 06/08/23 11:11 Review of Systems Review of Systems Comment: Ten point ROS as above Exam Exam Comment: Gen appear: No acute distress HEENT: no icterus Chest: No overt resp distress Abd: soft, nontender, nondistended Psych: Stable affect, answering questions appropriately Neuro: A/Ox3 noted to move all extremities spontaneously Ext: no peripheral edema Plan Diagnosis/Plan: Unchanged I have reviewed the history and physical and performed a pertinent physical examination on my patient. No changes have occurred unless specified. Time Spent With Patient Time: Total time managing care of this patient today ____ minutes.
[2023-08-20 10:16] VITALS: BMI 33.5
[2023-08-20 10:19] VITALS: BP 106/71; PULSE 64; RESP 18; TEMP 36.7; O2SAT 100
[2023-08-20] MEDS: Sodium Phosphate,Mono-Dibasic 133 ML ENEMA PR ×2 (10:48→10:58)
--- NOTE | 2023-08-20 11:14 | P.OP_ITS ---
Operative Note Operative Note Date of Service: 08/20/23 Narrative: Procedure:?Esophagogastroduodenoscopy and colonoscopy Endoscopist:?Erica Carpenter MD Indication:?Epigastric pain, anemia Anesthesia Provider:?Dr Erasmo Goldstein Anesthesia Type:?MAC Instrument:?Olympus GIF-H190, PCF-H190L EGD Procedure:?? The procedure, indications, preparation and potential complications were reviewed with the patient who indicated understanding and gave written informed consent to proceed. A physical exam was performed. A [employer] briquetting machine operator was utilised to help with the encounter. The endoscope was introduced through the mouth, and advanced to the second part of duodenum. The mucosa was carefully examined on slow withdrawal of the endosco pe. There were no immediate complications. Patient tolerated the procedure well. EGD Findings:? * Esophagus:? Normal mucosa noted in the entire esophagus. The Z-line is at 38 cm. Middle and lower esophagus biopsies were obtained to rule out eosinophilic esophagitis * Stomach:? Erythema noted in the fundus and body of the stomach. Retroflexion performed in the fundus. Random cold forceps biopsies were taken from the stomach to r/o H Pylori. * Duodenum:?Mucosal fissuring was noted in the second portion of the duodenum. Cold forceps biopsies were taken from the duodenal bulb and 2nd portion the duodenum to r/o celiac sprue. Colonoscopy Procedure:? The patient was then turned for the colonoscopy. A digital rectal exam was performed which was abnormal for hemorrhoids.? A distal attachment cap was affixed to the tip of the scope and the colonoscope was then inserted through the anus and advanced through the colon to the cecum. Mucosa was carefully examined under high definition white light as the instrument was slowly withdrawn in a retrograde panoramic fashion. Retroflexion was performed in rectum. The procedure was not difficult. There were no immediate obvious complications. The quality of the prep was BBPS: 1+2+2 = inadequate Withdrawal time: 6 minutes Limitations: Poor prep Findings: Mucosa: Liquid and semisolid stool was noted throughout the colon. This was extensively flushed and suctioned however right colon could not be adequately cleaned out to solid debris. Protruding lesions: * Large internal hemorrhoids without stigmata of recent bleeding. Impression: 1. Normal esophagus 2. Gastritis (biopsy) 3. Abnormal duodenal mucosa (biopsy) 4. Poor prep 5. External and internal hemorrhoids Recommendations:?? * Will be booked for repeat colonoscopy within 6 months. Pt will need re- education on prep instructions (only took half the prep yest, had solid food for breakfast). * Await path results * If H pylori positive, will need treatment. * Cont PPI.
[2023-08-20 12:13] VITALS: BP 90/46; PULSE 57; RESP 15; TEMP 36.2; O2SAT 100
[2023-08-20 12:35] VITALS: BP 101/62; PULSE 66; RESP 17; TEMP 36.1; O2SAT 99
== END 2023-08-20 12:58 | disposition home or self-care (01) ==
PROVIDERS: Nurse Practitioner; PCP Nurse Practitioner Family; Visit Provider Internal Medicine
PROC: (CPT 43239; principal; 2023-08-20 11:10)
DX: K31.6 Fistula of stomach and duodenum (principal); K29.70 Gastritis, unspecified, without bleeding; K64.4 Residual hemorrhoidal skin tags; K64.8 Other hemorrhoids; D64.9 Anemia, unspecified; K21.9 Gastro-esophageal reflux disease without esophagitis; Z79.899 Other long term (current) drug therapy
CPT/HCPCS: 43239; 45378; 81025; 88305; 88342

== ENCOUNTER → 2023-08-20 09:38 | Outpatient (BNV) | payer MEDICAID, SELFPAY | PROVIDERS: PCP Nurse Practitioner Family; Visit Provider Internal Medicine | DX: R10.13 Epigastric pain (principal); D64.9 Anemia, unspecified; Z91.198 Patient's noncompliance with other medical treatment and regimen for other reason; K64.8 Other hemorrhoids | CPT/HCPCS: 43239; 45378 ==

== ENCOUNTER 2023-08-31 10:55 | Outpatient (AMB) | payer MEDICAID, SELFPAY ==
--- NOTE | 2023-08-31 10:58 | A.OFFVIS_ITS ---
Intake Vital Signs 08/31/23 11:02 Height 5 ft 2 in Weight 182 lb BMI 33.3 BP 102/77 Blood Pressure Location Lt brachial Position Sitting Pulse 70 Intake Visit Reasons: S/PDouble; Dr. Carpenter Intake Note: Ermelinda presents in the office as a follow up egd and colo. CC: She states that she is here today to go over results to her procedures. She states that she is having pains in her throat since her procedure that goes down to the stomach. Hazardous Waste Technician Required: Yes Hazardous Waste Technician Name: [id number] Bennie Allergies No Known Allergies Allergy (Verified 08/31/23 11:05) HPI HPI Comments History of Present Illness Details 37y.o F Afvij[place] dayton speaking who is her e for worsening of epigastric pain. 06/08/23: Reports longstanding hx of acid reflux which has been managed on pepcid however for the past one month her discomfort has worsened and not gotten better despite adding omeprazole BID. No difficulty swallowing, but does report occ nausea. She was also recently diagnosed with H Pylori and was treated with quad therapy but unclear if he had a TIN. Pt was also noted to have severe microcytic anemia. Reports normal flow for her periods - changes pads 5-6 times a day. No melena or hematochezia reported. 08/20/23: 1. Normal esophagus 2. Gastritis (biopsy) 3. Abnormal duodenal mucosa (biopsy) 4. Poor prep 5. External and internal hemorrhoids Path: A. Duodenum, biopsy: Small intestinal mucosa with mildly increased intraepithelial lymphocytes and preserved villous architecture. B. Stomach, random, biopsy: - Antral-type and oxyntic mucosa with mo derate chronic inactive inflammation. - Rare forms suspicious for H. pylori id entified. C. Esophagus, lower, biopsy: - Cardiac-type mucosa with mild chronic inactive inflammation; no intestinal metaplasia seen. - Active esophagitis (maximum eosinophil count 1 per high powered field). D. Esophagus, middle, biopsy: Squamous epithelium within normal limits; no inflammation seen. 08/31/23: Reports continued sensation of sour brash and burning sensation coming up to her chest. Reports considerable fatigue and mood changes as well. EGD/colo findings reviewed. [place] was poor prep and will be rebooked. For EGD - appears has persistent H Pylori despite tx earlier this year through her PCP. COUNT INCLUDES THE [facility] Medical History Depression Anemia GERD (gastroesophageal reflux disease) H. pylori infection Surgical History (Updated 08/31/23 @ 11:06 by ANTONIO Solorzano) Hx of colonoscopy History of esophagogastroduodenoscopy (EGD) Surgical history unknown Social History Household Members: Spouse, Family and Children Housing: House Do you presently have visiting nurse or other home services: No Alcohol intake: never Patient Tobacco Use Status: Never used Tobacco service: No Review of Systems Const All systems reviewed & are unremarkable except as noted in HPI and below Physical Exam Vital Signs: Last Vital Signs Pulse 70 08/31/23 11:02 BP 102/77 08/31/23 11:02 BMI result Body Mass Index 33.3 Gen appear: NAD HEENT: nonicteric, no cervical lymphadenopathy Chest: CTA CVS: Regular S1/S2 Abd: soft, nontender, nondistended, bowel sounds + Ext: no peripheral edema Neuro: A/Ox3, noted to move all extremities spontaneously Psych: interacting appropriately Assessment & Plan Assessment & Plan (1) Anemia: Code(s): D64.9 - Anemia, unspecified (2) Epigastric pain: Code(s): R10.13 - Epigastric pain (3) H. pylori infection: Code(s): A04.8 - Other specified bacterial intestinal infections Plan 1. 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 As H pylori positive and pt symptomatic + anemic, treatment is indicated. Extensive education was done re quad therapy, dosing as well as possible expected side effects. Plan: - 14 days of therapy (should not start any of these until has ALL 4 meds filled) : Omeprazole 40mg BID Tetracycline 500mg 4 times a day (avoid sunburn while taking) Metronidazole 250mg 4 times a day? (avoid all alcohol while taking, can take with food to avoid nausea) Bismuth Subsalicylate 524mg 4 times a day (may turn stools black) - Teach back method utilised to ensure no communication barrier in understanding these instructions. - Instructions were also written out in Jordanian and handed to pt (reports children will help with interpretation at home) - TIN to be done in 2-3 weeks after completing quad therapy. 2. Iron deficiency anemia: Educated that fatigue and lack of energy likely due to severe anemia. Pt was [place] for iron infusions in Jun but was in [place] at that time. Will Rx these once H pylori tx completed. She is also due for completion colonoscopy. Follow up: TIN in 6-8 weeks Office appt in 3 months Medications: New omeprazole 20 mg PO BID 14 days 28 caps 0RF metronidazole 250 mg PO QID 14 days 56 tabs 0RF bismuth subsalicylate 2 tabs PO QID 14 days 112 tabs 0RF tetracycline 500 mg PO QID 14 days 56 caps 0RF Discontinued doxycycline hyclate Discontinued Reason: Doctor's Order 100 mg PO BID 28 tabs 0RF Z22.322 - Carrier or suspected carrier of Methicillin resistant Staphylococcus aureus Patient Instructions: Date: 08/31/23: ? Dear Ermelinda ? This is to review the results of the biopsy and the instructions for medications again. As discussed, the upper endoscopy showed presence of H.Pylori which is a bacteria that can cause irritation and changes in the lining of the stomach. In most patients, it is important to treat this as if left untreated there is a small chance of the gastric changes progressing to cancer. This small risk is variable and also depends on other factors such as obesity, diabetes, family history etc. Treatment is through a combination of antibiotics and acid-suppressing medications to be taken for 2 weeks. Please do not start the treatment until you have ALL the following pills: -Omeprazole 40mg 2 times a day -Tetracycline 500mg 4 times a day (avoid sunburn while taking) -Metronidazole 250mg 4 times a day? (this may cause abdominal discomfort and nausea. Avoid all alcohol while taking, can take with food to avoid nausea) -Bismuth Subsalicylate 524mg 4 times a day (may turn stools black). Once the treatment has been completed, we will discuss the next steps, including making sure the bacteria has been eliminated ( test of cure ). If you have any questions, please call the office at [phone]. Sincerely Erica Carpenter MD Gastroenterology [address] [place] [address], [address] [place] [address] Coding Level of Care Code Est Pt Level 4 (27715) Diagnoses Anemia D64.9 Epigastric pain R10.13 H. pylori infection A04.8
[2023-08-31 11:02] VITALS: BP 102/77; PULSE 70; BMI 33.3
== END 2023-08-31 11:55 | disposition home or self-care (01) ==
PROVIDERS: Visit Provider Internal Medicine
DX: D64.9 Anemia, unspecified (principal); R10.13 Epigastric pain; A04.8 Other specified bacterial intestinal infections
CPT/HCPCS: 99214

== ENCOUNTER → 2023-08-31 10:55 | Outpatient (BNVA) | payer MEDICAID, SELFPAY | PROVIDERS: Visit Provider Internal Medicine | DX: D64.9 Anemia, unspecified (principal); R10.13 Epigastric pain; A04.8 Other specified bacterial intestinal infections | CPT/HCPCS: 99212 ==

== ENCOUNTER → 2023-10-12 14:50 | Outpatient (BNVA) | payer MEDICAID, SELFPAY | PROVIDERS: Visit Provider Internal Medicine ==

== ENCOUNTER 2023-10-13 08:53 | Outpatient (AMB) | payer MEDICAID, SELFPAY ==
--- NOTE | 2023-10-13 09:08 | MHC.OFFVIS ---
Vital Signs 10/13/23 09:14 Height 5 ft 2 in Weight 182 lb BMI 33.3 BP 101/68 Blood Pressure Location Lt brachial Position Sitting Pulse 67 Intake Visit Reasons: Abdominal pain Intake Note: Patient is est with Dr. Carpenter for abdominal pain. Patient cc: middle right abdominal pain, constipation, acid reflex at night time and tiredness. Facilities Engineering Manager Required: Yes Facilities Engineering Manager Name: Bennie [id number] Accompanied by: Self / Same As Patient Allergies No Known Allergies Allergy (Verified 02/12/24 09:45) Medication List - Last Reconciled 10/13/23 by Cayden Garcia MD alum-mag hydroxide-simeth 400-400-40 mg/5 mL (Maalox Maximum Strength) 10 mL PO TID PRN bismuth subsalicylate 2 tabs PO QID 14 days docusate sodium 100 mg PO BID famotidine 20 mg PO BID lorazepam (Ativan) 1 mg PO BEDTIME PRN metronidazole 250 mg PO QID 14 days omeprazole 20 mg PO BID 90 days sertraline 25 mg PO DAILY sucralfate (Carafate) 10 mL PO QIDACHS 2 weeks tetracycline 500 mg PO QID 14 days HPI HPI Abdominal pain: Details: GI clinic visit for this 38 year old Afani [place] female for Fu of epigastric pain and H Pylori infection. Patient has been followed by Dr. Carpenter since june, for anemia and epigastric pain LABS IN [facility] : Reviewed IMAGING STUDIES: No recent GI imaging ENDOSCOPIC STUDIES: 08/20/23 EGD AND COLONOSCOPY SHOWED: Impression: 1. Normal esophagus 2. Gastritis (biopsy) 3. Abnormal duodenal mucosa (biopsy) 4. Poor prep 5. External and internal hemorrhoids Recommendations:?? Will be booked for repeat colonoscopy within 6 months. Pt will need re-education on prep instructions (only took half the prep yest, had solid food for breakfast). Await path results If H pylori positive, will need treatment. Cont PPI. BIOPSIES SHOWED: A. Duodenum, biopsy: Small intestinal mucosa with mildly increased intraepithelial lymphocytes and preserved villous architecture. See comment. B. Stomach, random, biopsy: - Antral-type and oxyntic mucosa with moderate chronic inactive inflammation. - Rare forms suspicious for H. pylori identified. C. Esophagus, lower, biopsy: - Cardiac-type mucosa with mild chronic inactive inflammation; no intestinal metaplasia seen. - Active esophagitis (maximum eosinophil count 1 per high powered field). D. Esophagus, middle, biopsy: Squamous epithelium within normal limits; no inflammation seen TODAY'S VISIT: Telephone Serbian/Sarina area counselor, Callie # [id number] I dont feel good - feeling lightheaded, dizzy with generalized body aches Feels tired with lack of motivation Complains of intermittent upper abdominal especially RUQ - sometimes radiates to the back Pain is worse after eating, Pt denies nausea or vomiting with pain Pain is cramping and feels pain and pressure in the neck area Pt reports she was given a blood transfusion for anemia - approx 5 months ago in [facility] Pt thinks she may have lost sone weight (not reflected in her wt chart) She complains of chronic constipation and denies diarrhea She has a BM every 2 days associated with straining and hard stools Denies black stools or rectal bleeding. Pt states she had surgery (tubal ligation) after her last child and has been having heavy periods since Patient denies major cardiac or pulmonary problems, loud snoring or sleep apnea Denies being on chronic anticoagulation. Pt is a house and has 9 children - ages ranging from 10 months to 19 years She is not breast feeding Patient denies known family history of colon polyps, colon cancer or other GI malignancies. PAST GI HISTORY BY REVIEW OF MEDICAL RECORDS: 08/22/23 patient was seen by Dr. Carpenter: 1. 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 As H pylori positive and pt symptomatic + anemic, treatment is indicated. Extensive education was done re quad therapy, dosing as well as possible expected side effects. Plan: - 14 days of therapy (should not start any of these until has ALL 4 meds filled) : Omeprazole 40mg BID Tetracycline 500mg 4 times a day (avoid sunburn while taking) Metronidazole 250mg 4 times a day? (avoid all alcohol while taking, can take with food to avoid nausea) Bismuth Subsalicylate 524mg 4 times a day (may turn stools black) - Teach back method utilised to ensure no communication barrier in understanding these instructions. - Instructions were also written out in Malay and handed to pt (reports children will help with interpretation at home) - TIN to be done in 2-3 weeks after completing quad therapy. 2. Iron deficiency anemia: Educated that fatigue and lack of energy likely due to severe anemia. Pt was [place] for iron infusions in Jun but was in [place] at that time. Will Rx these once H pylori tx completed. She is also due for completion colonoscopy. Follow up: TIN in 6-8 weeks Office appt in 3 months [facility] Medical History Depression Anemia GERD (gastroesophageal reflux disease) H. pylori infection Surgical History Hx of colonoscopy History of esophagogastroduodenoscopy (EGD) Surgical history unknown Social History Household Members: Spouse, Family and Children Housing: House Do you presently have visiting nurse or other home services: No Alcohol intake: never Patient Tobacco Use Status: Never used Tobacco Smoked in Last 30 Days: No Use of substances other than those prescribed or required for medical reasons: No Advance Directives: No Advance Directives Information Provided: Yes service: No Review of Systems Const All systems reviewed & are unremarkable except as noted in HPI and below Physical Exam Vital Signs: Last Vital Signs Pulse 67 10/13/23 09:14 BP 101/68 10/13/23 09:14 BMI result Body Mass Index 33.3 Const General: no acute distress and other (pale appearing) Nutritional Appearance: obese Orientation/consciousness: patient oriented x3 Limitations: language barrier HEENT Head: Yes normal to inspection Ears: hearing grossly normal bilaterally Eyes Sclerae: sclerae normal Pupils: Equal, round and reactive pupils present Neck Neck: Yes normal visual inspection Chest Chest palpation & inspection: normal inspection of the chest Resp Effort & Inspection: normal respiratory effort Auscultation: clear to auscultation bilaterally Cardio Palpation: normal PMI Rate: regular rate Rhythm: regular rhythm Heart sounds: S1 normal heart sound present, S2 normal heart sound present and no murmurs GI Palpation (GI): Soft to palpation, nontender and No hepatosplenomegaly present Auscultation: normal bowel sounds Rectal Exam - Female: deferred Skin General skin exam: no rashes or lesions noted Neuro General: patient oriented x3, gait normal and moves all extremities Cranial nerves: Yes Equal, round and reactive pupils present Psych Appearance: grossly normal Mental Status: mental status grossly normal Assessment & Plan Assessment & Plan (1) Epigastric pain: Code(s): R10.13 - Epigastric pain Category: Medical (2) Anemia: Code(s): D64.9 - Anemia, unspecified Category: Medical (3) RUQ abdominal pain: Code(s): R10.11 - Right upper quadrant pain Category: Medical (4) Chronic constipation: Code(s): K59.09 - Other constipation Category: Medical Plan 38 year old with epigastric pain and hx of H Pylori infection. EGD showed gastritis and abnormal duodenal mucosa. 08/31/23 Pt was prescribed quadruple therapy for H Pylori gastritis 10/13/23 pt complains of fatigue and continues to have intermittent upper abdominal especially RUQ - sometimes radiates to the back She complains of chronic constipation and denies diarrhea Pt advised to have labs for FU of anemia and schedule an abdominal US to rule out biliary source of abdominal pain. She was advised to schedule an appt for H Pylori breath test after holding Omeprazole x 2 weeks She wae prescribed iron for MONY and Senna for constipation FU in 4 weeks Orders: Orders Lipase 10/13/23 R10.13 - Epigastric pain, D64.9 - Anemia, unspecified, R10.11 - Right upper quadrant pain Vitamin B12 and Folate 10/13/23 R10.13 - Epigastric pain, D64.9 - Anemia, unspecified, R10.11 - Right upper quadrant pain Complete Blood Count Auto Diff 10/13/23 R10.13 - Epigastric pain, D64.9 - Anemia, unspecified, R10.11 - Right upper quadrant pain Ferritin 10/13/23 R10.13 - Epigastric pain, D64.9 - Anemia, unspecified, R10.11 - Right upper quadrant pain Liver Panel 10/13/23 R10.13 - Epigastric pain, D64.9 - Anemia, unspecified, R10.11 - Right upper quadrant pain US abdomen complete 10/13/23 R10.11 - Right upper quadrant pain, R10.13 - Epigastric pain Medications: New sennosides-docusate sodium 8.6-50 mg (Senna Plus) 1 tab-cap PO BEDTIME 90 caps 1RF 90 days K59.09 - Other constipation ferrous gluconate 324 mg PO DAILY 30 tabs 1RF 30 days D64.9 - Anemia, unspecified
[2023-10-13 09:14] VITALS: BP 101/68; PULSE 67; BMI 33.3
== END 2023-10-13 09:57 | disposition home or self-care (01) ==
PROVIDERS: Visit Provider Internal Medicine Gastroenterology
DX: R10.13 Epigastric pain (principal); D64.9 Anemia, unspecified; R10.11 Right upper quadrant pain; K59.09 Other constipation
CPT/HCPCS: 99499

== ENCOUNTER → 2023-10-13 08:53 | Outpatient (BNVA) | payer MEDICAID, SELFPAY | PROVIDERS: Visit Provider Internal Medicine Gastroenterology ==

== ENCOUNTER 2023-10-28 15:12 | Outpatient (REF) | payer MEDICAID, SELFPAY ==
[2023-10-29 11:46] LABS: H Pylori Breath Test Negative (Negative)
== END 2023-10-28 15:13 | disposition home or self-care (01) ==
LOC: HO.LNP 15:12
PROVIDERS: Visit Provider Internal Medicine
DX: Z11.0 Encounter for screening for intestinal infectious diseases (principal)
CPT/HCPCS: 83013; 87338

== ENCOUNTER 2023-11-13 09:16 | Outpatient (REF) | payer MEDICAID, SELFPAY ==
--- NOTE | ~2023-11-13 | US_ITS ---
EXAMINATION: US ABDOMEN COMPLETE CLINICAL INFORMATION: Right upper quadrant pain, rule out cholecystitis. COMPARISON: None available. TECHNIQUE: Real-time imaging of the abdominal viscera. FINDINGS: PANCREAS: Normal. ABDOMINAL AORTA: The proximal, mid, and distal segments are normal in caliber. INFERIOR VENA CAVA: Visualized portions are normal. LIVER: Normal. The liver is normal in size. The liver contour is normal. Parenchymal echogenicity is normal. No focal hepatic lesion. There is no intrahepatic biliary duct dilatation seen. GALLBLADDER: Normal. The gallbladder is physiologically distended without evidence of stones, sludge, polyps, wall thickening or pericholecystic fluid. COMMON BILE DUCT: Normal in caliber measuring 0.3 cm in diameter. RIGHT KIDNEY: Normal. No hydronephrosis. 3 mm calcification is noted in the right renal lower pole cortex.. The kidney measures 10.4 cm in maximum dimension. LEFT KIDNEY: Normal. No hydronephrosis. No renal calculi or focal parenchymal lesions. The kidney measures 11.1 cm in maximum dimension. SPLEEN: Normal. The spleen measures 8.7 cm in maximum dimension. FREE FLUID: None. US/US abdomen complete IMPRESSION: 1. No sonographic evidence of cholelithiasis or cholecystitis. 2. Incidental 3 mm cortical calcification in the right renal lower pole.
== END 2023-11-13 09:17 | disposition home or self-care (01) ==
LOC: HO.US 09:16
PROVIDERS: Visit Provider Internal Medicine Gastroenterology
DX: R10.11 Right upper quadrant pain (principal)
CPT/HCPCS: 76700

== ENCOUNTER 2023-12-01 08:54 | Outpatient (AMB) | payer MEDICAID, SELFPAY ==
--- NOTE | 2023-12-01 08:55 | A.OFFVIS_ITS ---
Intake Vital Signs 12/01/23 08:56 Height 5 ft 2 in Weight 167 lb 8.821 oz BMI 30.6 BP 107/64 Blood Pressure Location Lt brachial Position Sitting Pulse 69 Intake Visit Reasons: 3 month follow up Anemia Intake Note: Ermelinda presents in the office as a 3 month follow up anemia. CC: for a week she is having severe pains in her Left side of her chest. When she wakes up in the morning she gets pains. She gets constipation and she has p ains in her stomach. Clerk Telegraph Service Required: Yes Clerk Telegraph Service Name: Giulia [id number] Allergies No Known Allergies Allergy (Verified 12/01/23 09:01) HPI HPI Comments History of Present Illness Details 37y.o F Afghani dayton speaking who is her e for weakness and fatigue due to severe iron deficiency from menstrual losses. Reports longstanding hx of acid reflux which has been managed on pepcid however for the past one month her discomfort has worsened and not gotten better despite adding omeprazole BID. No difficulty swallowing, but does report occ nausea. She was also recently diagnosed with H Pylori and was treated with quad therapy but unclear if he had a TIN. Pt was also noted to have severe microcytic anemia. Reports normal flow for her periods - changes pads 5-6 times a day. No melena or hematochezia reported. 08/20/23: 1. Normal esophagus 2. Gastritis (biopsy) 3. Abnormal duodenal mucosa (biopsy) 4. Poor prep 5. External and internal hemorrhoids Path: A. Duodenum, biopsy: Small intestinal mucosa with mildly increased intraepithelial lymphocytes and preserved villous architecture. B. Stomach, random, biopsy: - Antral-type and oxyntic mucosa with mo derate chronic inactive inflammation. - Rare forms suspicious for H. pylori id entified. C. Esophagus, lower, biopsy: - Cardiac-type mucosa with mild chronic inactive inflammation; no intestinal metaplasia seen. - Active esophagitis (maximum eosinophil count 1 per high powered field). D. Esophagus, middle, biopsy: Squamous epithelium within normal limits; no infla mmation seen. 08/31/23: Reports continued sensation of sour brash and burning sensation coming up to her chest. Reports considerable fatigue and mood changes as well. EGD/colo findings reviewed. [place] was poor prep and will be rebooked. For EGD - appears has persistent H Pylori despite tx earlier this year through her PCP. 10/13/23: Was seen by the good Dr Garcia as urgent visit as pt complained severe constipation and tiredness along with RUQ pain. An US RUQ was done which was normal. SHe was also switched to a different iron formulation for better PO tolerance. 12/01/23: Today reports that continues to have severe abd cramping and pain with constipation whenever she takes the iron pill so has not been able to take it more than 2-3 times a week since last month. With this continues to report weakness, easy fatigability and mood changes. H Pylori TIN negative i.e successfully eradicated. [facility] Medical History Depression Anemia GERD (gastroesophageal reflux disease) H. pylori infection Surgical History Hx of colonoscopy History of esophagogastroduodenoscopy (EGD) Surgical history unknown Social History Household Members: Spouse, Family and Children Housing: House Do you presently have visiting nurse or other home services: No Alcohol intake: never Patient Tobacco Use Status: Never used Tobacco service: No Review of Systems Const All systems reviewed & are unremarkable except as noted in HPI and below Physical Exam Vital Signs: Last Vital Signs Pulse 69 12/01/23 08:56 BP 107/64 12/01/23 08:56 BMI result Body Mass Index 30.6 Gen appear: NAD HEENT: nonicteric, no cervical lymphadenopathy Chest: CTA CVS: Regular S1/S2 Abd: soft, nontender, nondistended, bowel sounds + Ext: no peripheral edema Neuro: A/Ox3, noted to move all extremities spontaneously Psych: interacting appropriately Assessment & Plan Assessment & Plan (1) Anemia: Code(s): D64.9 - Anemia, unspecified (2) Epigastric pain: Code(s): R10.13 - Epigastric pain (3) H. pylori infection: Code(s): A04.8 - Other specified bacterial intestinal infections Plan 1. 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 H Pylori successfully eradicated with quad therapy. Pt advised to decrease omeprazole to once daily. Reports constipation so holding off TCA for FD for now, but will consider when her constipation resolves (suspect PO iron related) 2. Iron deficiency anemia: Educated that fatigue and lack of energy likely due to severe anemia. Pt now amenable to venofer infusions. Plan: - Venofer 200mg qweekly x 5 doses - Check CBC, iron studies today for baseline and again in 2 months post treatment Follow up: in 3 months Orders: Orders Complete Blood Count no Diff Today D64.9 - Anemia, unspecified Vitamin D 25-OH Total Today D64.9 - Anemia, unspecified Vitamin B12 and Folate Today D64.9 - Anemia, unspecified Ferritin Today D64.9 - Anemia, unspecified IRON PROFILE Today D64.9 - Anemia, unspecified Medications: Discontinued metronidazole Discontinued Reason: Patient Completed Course 250 mg PO QID 14 days 56 tabs 0RF bismuth subsalicylate Discontinued Reason: Doctor's Order 2 tabs PO QID 14 days 112 tabs 0RF tetracycline Discontinued Reason: Patient Completed Course 500 mg PO QID 14 days 56 caps 0RF ferrous gluconate Discontinued Reason: Doctor's Order 324 mg PO DAILY 30 days 30 tabs 1RF D64.9 - Anemia, unspecified Coding Level of Care Code Est Pt Level 4 (76370) Diagnoses Anemia D64.9 Epigastric pain R10.13 H. pylori infection A04.8
[2023-12-01 08:56] VITALS: BP 107/64; PULSE 69; BMI 30.6
== END 2023-12-01 09:36 | disposition home or self-care (01) ==
PROVIDERS: Visit Provider Internal Medicine
DX: D64.9 Anemia, unspecified (principal); R10.13 Epigastric pain; A04.8 Other specified bacterial intestinal infections
CPT/HCPCS: 99214

== ENCOUNTER 2023-12-01 08:54 | Outpatient (REF) | payer MEDICAID, SELFPAY ==
[2023-12-01 10:12] LABS: Hematocrit 36.8 % (37.0-47.0); Hemoglobin 11.8 g/dl (12.0-16.0); Mean Corpuscular HGB Conc 32.1 g/dl (31.0-35.0); Mean Corpuscular Hemoglobin 26.9 pg (27.0-33.0); Platelet Count 199 X10*3/uL (160-400); Red Blood Count 4.38 X10*6/uL (4.20-5.50); White Blood Count 4.7 X10*3/uL (4.8-10.8)
[2023-12-01 10:53] LABS: Iron 75 mcg/dL (30-160); Percent Iron Saturation 22 % (15-50); Total Iron Binding Capacity 343 mcg/dL (228-428); Unsaturated Iron Binding 268 ug/dL
[2023-12-01 11:15] LABS: Folate 9.5 ng/mL (> or = 4.0); Vitamin B12 564 pg/mL (200-900)
[2023-12-01 11:16] LABS: Ferritin 14 ng/mL (10-122); Vitamin D 25-OH Total 13.3 ng/mL (>30)
== END 2023-12-01 08:55 | disposition home or self-care (01) ==
LOC: HO.LAB 08:54
PROVIDERS: Absent Provider Internal Medicine Gastroenterology; Visit Provider Internal Medicine
DX: D64.9 Anemia, unspecified (principal); R10.13 Epigastric pain; A04.8 Other specified bacterial intestinal infections
CPT/HCPCS: 36415; 82306; 82607; 82728; 82746; 83540; 85027; 99212

== ENCOUNTER 2024-01-04 16:43 | Emergency (ER) | payer MEDICAID, SELFPAY ==
[2024-01-04 17:08] VITALS: BP 118/64; PULSE 59; RESP 18; TEMP 36.2; O2SAT 97; BMI 30.2
--- NOTE | 2024-01-04 17:14 | ED.GENADULT ---
HPI - General Adult General Chief complaint: Headache Stated complaint: headache Time Seen by Provider: 01/04/24 18:51 Source: patient Mode of arrival: ambulatory Limitations: language barrier (Patient is from [place] and speaks Sar[place], the iPad [employer] hand thermal cutter was used) History of Present Illness HPI narrative: 38-year-old female who presents emergency department for evaluation of headache and neck pain x1 week. Patient states that she is having pain in the temporal areas of her head and in the occipital area of her head and neck she states that the pain is been constant for a week. She states the pain starts at around 14:00 and lasts into the evening and then resolves. She describes the pain is a sharp, pressure-like pain which is 9/10. Patient states that the headache is associated with nausea, photophobia and phonophobia. She states that an [place] she was told that she had migraines. She denied fever, chills, rhinorrhea, sore throat, cough, myalgias arthralgias Patient was seen in the emergency department 05/08/2023 with nausea vomiting abdominal pain and headaches. At that time she had a CT scan of the brain which was unremarkable. Related Data Home Medications ?Medication ?Instructions ?Recorded ?Confirmed famotidine 20 mg tablet 20 mg PO BID 06/08/23 10/13/23 ipratropium bromide 42 mcg (0.06 intranasal 12/01/23 %) nasal spray sennosides 8.6 mg-docusate sodium 1 tab PO BEDTIME 12/01/23 50 mg tablet (Senexon-S) Previous Rx's ?Medication ?Instructions ?Recorded docusate sodium 100 mg capsule 100 mg PO BID #60 caps 05/10/23 aluminum-mag hydroxide-simethicone 10 ml PO TID PRN indigestion #240 05/23/23 400 mg-400 mg-40 mg/5 mL oral susp mL (Maalox Maximum Strength) lorazepam 1 mg tablet (Ativan) 1 mg PO BEDTIME PRN anxiety #10 05/23/23 tabs polyethylene glycol 3350 17 17 g PO DAILY #238 grams 10/29/23 gram/dose oral powder (Miralax) omeprazole 20 mg capsule,delayed 20 mg PO BID #180 caps 11/30/23 release cholecalciferol (vitamin D3) 1,250 1,250 mcg PO QWEEK #8 caps 12/02/23 mcg (50,000 unit) capsule [id number] 250 2 tab PO Q6H PRN headache #20 tabs 01/04/24 mg-250 mg-65 mg tablet (Excedrin Extra Strength) benzocaine 20 % mucosal aerosol 1 spray mucous membrane TID PRN 02/12/24 spray (HurriCaine) sore throat #57 grams ferrous sulfate 325 mg (65 mg 325 mg PO DAILY #30 tabs 04/05/24 iron) tablet (Chetan-Time) ibuprofen 600 mg tablet 600 mg PO TID PRN fever or pain 04/05/24 #20 tabs omeprazole 20 mg capsule,delayed 20 mg PO DAILY #90 caps 04/05/24 release phenylephrine 0.25 %-mineral oil 1 appl PA BID PRN hemorrhoids #28 04/05/24 14 %-petrolatm 74.9 % rectal grams ointment (Preparation H) polyethylene glycol 3350 17 17 g PO DAILY #119 grams 04/05/24 gram/dose oral powder (Miralax) calcium carb 1,200 mg-mag hydrox 15 ml PO TID PRN abd pain 30 days 06/20/24 270 mg-simeth 80 mg/10 mL oral #1,350 mL susp (Mylanta Coat-Cool) nortriptyline 10 mg capsule 10 mg PO BEDTIME 90 days #90 caps 06/20/24 Allergies Allergy/AdvReac Type Severity Reaction Status Date / Time No Known Allergies Allergy Verified 06/20/24 14:07 Review of Systems Review of Systems: Yes all other systems are reviewed and are negative [facility] Past Medical History [facility] Narrative: Social history: She is from [facility] is been living then [facility] for approximately 1 year. She denies tobacco, alcohol and drug use. Medical History Depression Anemia GERD (gastroesophageal reflux disease) H. pylori infection Surgical History Hx of colonoscopy History of esophagogastroduodenoscopy (EGD) Surgical history unknown Social History Social History Household Members: Spouse, Family and Children Housing: House Do you presently have visiting nurse or other home services: No Alcohol intake: never Patient Tobacco Use Status: Never used Tobacco service: No Physical Exam ED Vital Signs: Vital Signs - 24 hr 01/04/24 17:08 Temperature 97.2 F Pulse Rate 59 Respiratory Rate 18 Blood Pressure 118/64 Pulse Oximetry 97 Oxygen Delivery Method Room Air BMI result Body Mass Index 30.2 Vital signs were normal Exam General: Awake, alert in no distress Head: Normocephalic, atraumatic, no tenderness palpation over the temporal regions, maxillary or frontal sinuses EENT: PERRL, Lids normal, sclera normal, conjunctiva normal, nose normal , ears normal, throat without erythema or exudates Neck: Supple, no adenopathy, tender upper neck and occiput Lung: breath sounds symmetric, no wheezing, rales or rhonchi Chest: symmetric movement, nontender Heart: regular rate and rhythm, normal S1, S2 no murmurs or rubs Abdomen: soft, non-tender, nondistended, normal bowel sounds Back: no vertebral tenderness, no CVAT Extremities: no deformities, moves all extremities symmetrically Neuro: Awake, alert, oriented, normal speech, cranial nerves intact, moves all extremities symmetrically Psych: Pleasant, cooperative Course Course Course Narrative: RME- 17:15pm 38yoF who needs an hand thermal cutter for Afanian speaking presenting to the ER with complaints of generalized fatigue, malaise, headaches, neck pain started at 2pm. She reports noise sensitivity and photosensitivity. She reports when she moves her neck the pain gets worse. On exam patient has good range of motion. No meningeal signs. Neck is soft and I can not reproduce the tenderness. She has a normal neuro exam. Plan: Will obtain basic labs, COVID/RSV/flu swab patient will be sent back to the waiting room to be evaluated [facility]. Medications Administered Discontinued Medications Generic Name Dose Route Start Last Admin Trade Name Freq PRN Reason Stop Dose Admin Acetaminophen 975 mg 01/04/24 19:19 01/04/24 19:28 Acetaminophen 325 Mg Tablet PO 01/04/24 19:20 975 mg ONCE STA Administration Aspirin 81 mg 01/04/24 19:19 01/04/24 19:28 Aspirin 81 Mg Tab.Chew PO 01/04/24 19:20 81 mg ONCE ONE Administration Diphenhydramine HCl 50 mg 01/04/24 19:19 01/04/24 19:28 Diphenhydramine Hcl 25 Mg Capsule PO 01/04/24 19:20 50 mg ONCE ONE Administration Metoclopramide HCl 10 mg 01/04/24 19:19 01/04/24 19:27 Metoclopramide Hcl 10 Mg Tablet PO 01/04/24 19:20 10 mg ONCE STA Administration Medical Decision Making Medical Decision Making [facility] Narrative: 38-year-old female who presents emergency department for evaluation of headache and neck pain x1 week. Patient states that she is having pain in the temporal areas of her head and in the occipital area of her head and neck she states that the pain is been constant for a week, 9/10 pain, associated with nausea, phonophobia and photophobia. She has had similar headaches in the past and was told that she was diagnosed with migraines when she was in [facility]. She denied fever, chills, rhinorrhea, sore throat, cough. Vital signs were normal. Physical exam was unremarkable Differential diagnosis: ?Includes but is not limited to migraine headache, nonspecific headache, mass effect, infectious process, viral syndrome, COVID, influenza, RSV Following evaluation was ordered: CBC, CMP, magnesium, liver panel, COVID, influenza, RSV, Patient was initially treated with the following: Reglan 10 mg, Benadryl 50 mg, Tylenol 975 mg, aspirin 81 mg Course: 19:26 My interpretation patient's laboratory evaluation is as follows: White blood count was normal 5600. Normocytic anemia with an H&H of 10 and 31.8-similar anemia in the past. BMP was normal. LFTs were normal. COVID-19, influenza, RSV were negative. Patient's symptoms and exam are most consistent with a migraine syndrome and I did discuss this with her. Patient will be treated with the following for medications orally: Reglan 10 mg, Benadryl 50 mg, Tylenol 975 mg and aspirin 81 mg orally 20:56 Patient is feeling better after the above treatment. Patient's symptoms are consistent with a migraine headache. Patient will be treated with following regimen: Reglan, Benadryl and Excedrin migraine every 6 hours as needed. She was given printed and verbal instructions and discharged home. Admission/Observation Consideration of admission/observation: Escalation of care including admission/observation considered Lab Data [facility] Lab Attestation statement: I reviewed the patient's lab results. 01/04/24 17:40 01/04/24 17:40 Labs: Lab Results 01/04/24 Range/Units 17:40 WBC 5.6 (4.8-10.8) X10*3/uL RBC 3.92 L (4.20-5.50) X10*6/uL Hgb 10.2 L (12.0-16.0) g/dl Hct 31.8 L (37.0-47.0) % MCV 81.1 (80.0-98.0) fL MCH 26.0 L (27.0-33.0) pg MCHC 32.1 (31.0-35.0) g/dl RDW 12.7 (11.0-16.0) % Plt Count 206 (160-400) X10*3/uL MPV 10.0 (9.4-12.3) fL Immature Gran % (Auto) 0.5 H (0.0-0.4) % Neut % (Auto) 51.9 (45-73) % Lymph % (Auto) 38.6 (20-40) % Wright % (Auto) 7.0 (2-11) % Eos % (Auto) 1.8 (0-4) % Baso % (Auto) 0.2 (0-2) % Lymph # (Auto) 2.2 (1.2-4.9) X10*3/uL Wright # (Auto) 0.4 (0.1-1.2) X10*3/uL Eos # (Auto) 0.1 (0.0-0.4) X10*3/uL Baso # (Auto) 0.0 (0.0-0.2) X10*3/uL Abs Immat Gran (auto) 0.03 (0.00-0.03) X10*3/uL Absolute Neuts (auto) 2.9 (2.0-8.3) x10*3/uL Absolute Nucleated RBC 0.000 (0.0-0.012) X10*3/uL Nucleated RBC % (auto) 0.0 (0.0-0.2) /100WBC Sodium 140 (135-145) mmol/L Potassium 4.0 (3.3-5.1) mmol/L Chloride 108 (96-108) mmol/L Carbon Dioxide 27 (22-29) mmol/L Anion Gap 9 L (12-20) BUN 15 (9-16) mg/dL Creatinine 0.72 (0.5-1.4) mg/dL Estim Creat Clear Calc 102.3 Estimated GFR > 60 Random Glucose 102 (60-115) mg/dL Calcium 9.6 (8.4-10.2) mg/dL Magnesium 1.8 (1.6-2.6) mg/dL Total Bilirubin 0.2 (0.0-1.0) mg/dL Direct Bilirubin < 0.2 (0.0-0.5) mg/dL AST 17 (5-31) U/L ALT 12 (0-31) U/L Alkaline Phosphatase 62 (39-117) U/L Total Protein 7.3 (6.5-8.0) g/dL Albumin 4.0 (3.5-5.0) g/dL Influenza Type A (PCR) NEGATIVE (Negative) Influenza Type B (PCR) NEGATIVE (Negative) RSV RNA Qual (PCR) NEGATIVE (Negative) SARS-CoV-2 RNA (RT-PCR) NEGATIVE (Negative) Discharge Plan Discharge Clinical Impression: Migraine Patient Disposition: Home, Self-Care Instructions: Migraine Headache (ED) Additional Instructions: Your blood work was normal. Your COVID-19, influenza and RSV were negative. Your symptoms are consistent with a migraine headache. I want you to take the following 3 medications together every 6 hours as needed for headache, nausea or vomiting. ? Reglan (metoclopramide) in 10 mg, 1 pill Benadryl 25 mg, 2 pills Excedrin migraine, 2 pills. After you take these medications, lie down in a dark quiet room and try to fall asleep. ?These medications will make you sleepy, do not drive or work after taking these medications. Follow-up with your doctor in 2 days. Please return to the emergency department if your symptoms get worse or if you develop any symptoms that are concerning to you. Prescriptions: New Excedrin Extra Strength 250-250-65 mg tablet 2 tab PO Q6H PRN (Reason: headache) Qty: 20 0RF No Action polyethylene glycol 3350 [Miralax] 17 gram/dose powder 17 g PO DAILY Qty: 238 2RF omeprazole 20 mg capsule,delayed release(DR/EC) 20 mg PO BID Qty: 180 3RF cholecalciferol (vitamin D3) 1,250 mcg (50,000 unit) capsule 1,250 mcg PO QWEEK Qty: 8 0RF lorazepam [Ativan] 1 mg tablet 1 mg PO BEDTIME PRN (Reason: anxiety) Qty: 10 0RF alum-mag hydroxide-simeth [Maalox Maximum Strength] 400-400-40 mg/5 mL suspension 10 ml PO TID PRN (Reason: indigestion) Qty: 240 0RF docusate sodium 100 mg Capsule 100 mg PO BID Qty: 60 0RF HurriCaine 20 % aerosol,spray 1 spray mucous membrane TID PRN (Reason: sore throat) Qty: 57 0RF Preparation H 0.25-14-74.9 % ointment 1 appl PA BID PRN (Reason: hemorrhoids) Qty: 28 0RF omeprazole 20 mg capsule,delayed release(DR/EC) 20 mg PO DAILY Qty: 90 0RF ibuprofen 600 mg tablet 600 mg PO TID PRN (Reason: fever or pain) Qty: 20 0RF ferrous sulfate [Chetan-Time] 325 mg (65 mg iron) tablet 325 mg PO DAILY Qty: 30 2RF polyethylene glycol 3350 [Miralax] 17 gram/dose powder 17 g PO DAILY Qty: 119 0RF ipratropium bromide 42 mcg (0.06 %) spray,non-aerosol intranasal sennosides-docusate sodium [Senexon-S] 8.6-50 mg tablet 1 tab PO BEDTIME famotidine 20 mg tablet 20 mg PO BID Mylanta Coat-Cool 1,200 mg-270 mg -80 mg/10 mL suspension 15 ml PO TID PRN (Reason: abd pain) 30 Days Qty: 1350 1RF nortriptyline 10 mg capsule 10 mg PO BEDTIME 90 Days Qty: 90 1RF Rx Instructions: Take 1 cap at bedtime x 2 weeks, and then increase to 2 caps at bedtime. Interventions: ED Discharge Assessment Last Done: 01/04/24 21:39 Discharge Date/Time: 01/04/24 21:39 Print Language: Other
[2024-01-04 17:46] LABS: MANUAL DIFF FLAG NO
[2024-01-04 18:10] LABS: Basophils Percent Auto 0.2 % (0-2); Eosinophils Absolute Auto 0.1 X10*3/uL (0.0-0.4); Eosinophils Percent Auto 1.8 % (0-4); Hematocrit 31.8 % (37.0-47.0); Hemoglobin 10.2 g/dl (12.0-16.0); Imm Gran Abs Auto 0.03 X10*3/uL (0.00-0.03); Imm Gran Pct Auto 0.5 % (0.0-0.4); Lymphocytes Absolute Auto 2.2 X10*3/uL (1.2-4.9); Lymphocytes Percent Auto 38.6 % (20-40); Mean Corpuscular HGB Conc 32.1 g/dl (31.0-35.0); Mean Corpuscular Volume 81.1 fL (80.0-98.0); Monocytes Absolute Auto 0.4 X10*3/uL (0.1-1.2); Neutrophils Absolute Auto 2.9 x10*3/uL (2.0-8.3); Neutrophils Percent Auto 51.9 % (45-73); Platelet Count 206 X10*3/uL (160-400); Red Blood Count 3.92 X10*6/uL (4.20-5.50); Red Cell Distribution Width 12.7 % (11.0-16.0); White Blood Count 5.6 X10*3/uL (4.8-10.8)
[2024-01-04 18:11] LABS: Alanine Aminotransferase 12 U/L (0-31); Alkaline Phosphatase 62 U/L (39-117); Anion Gap 9 (12-20); Aspartate Amino Transferase 17 U/L (5-31); Bilirubin Direct < 0.2 mg/dL (0.0-0.5); Bilirubin Total 0.2 mg/dL (0.0-1.0); Blood Urea Nitrogen 15 mg/dL (9-16); Calcium 9.6 mg/dL (8.4-10.2); Carbon Dioxide 27 mmol/L (22-29); Chloride 108 mmol/L (96-108); Creatinine Clr Calc Pharmacy 102.3; Estimated Glomerular Filt Rate > 60; Glucose Random 102 mg/dL (60-115); Magnesium 1.8 mg/dL (1.6-2.6); Sodium 140 mmol/L (135-145); Total Protein 7.3 g/dL (6.5-8.0)
[2024-01-04 18:23] LABS: Influenza A PCR NEGATIVE (Negative); Influenza B PCR NEGATIVE (Negative); Resp Syncy Virus RNA Qual PCR NEGATIVE (Negative); SARS COV2 PCR INHOUSE NEGATIVE (Negative)
[2024-01-04] MEDS: Metoclopramide HCl 10 MG TABLET PO (19:27)
[2024-01-04] MEDS: Acetaminophen 325 MG TABLET 975 MG PO (19:28)
[2024-01-04] MEDS: diphenhydrAMINE HCL 25 MG CAPSULE 50 MG PO (19:28)
[2024-01-04] MEDS: Aspirin 81 MG TAB.CHEW PO (19:28)
== END 2024-01-04 21:39 | disposition home or self-care (01) ==
PROVIDERS: Physician Assistant Medical; Emergency Provider Emergency Medicine Emergency Medical Services
DX: G43.909 Migraine, unspecified, not intractable, without status migrainosus (principal); Z11.52 Encounter for screening for COVID-19; Z20.828 Contact with and (suspected) exposure to other viral communicable diseases
CPT/HCPCS: 0241U; 80053; 82248; 83735; 85025; 99283

== ENCOUNTER 2024-02-12 08:56 | Outpatient (REF) | payer MEDICAID, SELFPAY ==
[2024-02-12 10:11] LABS: Hematocrit 31.6 % (37.0-47.0); Hemoglobin 9.8 g/dl (12.0-16.0); Mean Corpuscular Hemoglobin 24.6 pg (27.0-33.0); Mean Corpuscular Volume 79.4 fL (80.0-98.0); Mean Platelet Volume 9.8 fL (9.4-12.3); Platelet Count 243 X10*3/uL (160-400); Red Blood Count 3.98 X10*6/uL (4.20-5.50); Red Cell Distribution Width 13.2 % (11.0-16.0); White Blood Count 4.5 X10*3/uL (4.8-10.8)
[2024-02-12 11:50] LABS: Ferritin 16 ng/mL (10-122)
[2024-02-12 12:03] LABS: Alanine Aminotransferase 34 U/L (0-31); Albumin Level 3.9 g/dL (3.5-5.0); Alkaline Phosphatase 62 U/L (39-117); Aspartate Amino Transferase 32 U/L (5-31); Bilirubin Direct 0.1 mg/dL (0.0-0.5); Bilirubin Total 0.4 mg/dL (0.0-1.0); Iron 26 mcg/dL (30-160); Percent Iron Saturation 7 % (15-50); Total Iron Binding Capacity 365 mcg/dL (228-428); Total Protein 7.2 g/dL (6.5-8.0); Unsaturated Iron Binding 339 ug/dL
== END 2024-02-12 08:57 | disposition home or self-care (01) ==
LOC: HO.LAB 08:56
PROVIDERS: Visit Provider Internal Medicine
DX: R10.13 Epigastric pain (principal); D64.9 Anemia, unspecified
CPT/HCPCS: 36415; 80076; 82728; 83540; 85027

== ENCOUNTER 2024-02-12 09:17 | Emergency (ER) | payer MEDICAID, SELFPAY ==
[2024-02-12 09:43] VITALS: BP 100/72; PULSE 70; RESP 18; TEMP 36.6; O2SAT 98; BMI 30.4
--- NOTE | 2024-02-12 09:53 | ECG_ITS ---
Test Reason : CHEST PAIN Blood Pressure : / mmHG Vent. Rate : 059 BPM Atrial Rate : 059 BPM P-R Int : 174 ms QRS Dur : 076 ms QT Int : 396 ms P-R-T Axes : 027 -10 -06 degrees QTc Int : 392 ms Sinus bradycardia Possible Anterior infarct , age undetermined Abnormal ECG When compared with ECG of 09-MAY-2023 03:11, No significant change was found Referred By: Generic ED Physician Electronically Signed By:Messi Cazares
[2024-02-12] MEDS: Lidocaine HCl Viscous 2 % 15 ML SOLUTION MUCOUS MEM (10:39)
[2024-02-12] MEDS: Ibuprofen 600 MG TABLET PO (10:44)
[2024-02-12 10:48] LABS: IDNOW Serial# 08D9AD1C; Strep A Nucleic Acid Negative (Negative)
--- NOTE | 2024-02-12 10:51 | ED_ITS ---
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 She was seen at a local hospital yesterday where she tested positive for influenza. She was given Tylenol, ibuprofen, and another prescription that she does not know the name of. She states she took all of them last night and had ongoing pain, did not sleep well. She states it hurts to swallow and she has not able to eat or drink. She states it hurts to talk as well. She has a slight cough. She denies any fevers, chest pain, difficulty breathing. MD elicited complaint: sore throat Onset (ago): day(s) Consistency: progressively worsening Severity: moderate Able to tolerate fluids by mouth: No Exacerbating factors: swallowing and speaking Relieving factors: nothing Associated symptoms: voice changes and sore throat Treatments prior to arrival: none Related Data Home Medications ?Medication ?Instructions ?Recorded ?Confirmed sertraline 25 mg tablet 25 mg PO DAILY 05/08/23 10/13/23 famotidine 20 mg tablet 20 mg PO BID 06/08/23 10/13/23 ipratropium bromide 42 mcg (0.06 intranasal 12/01/23 %) nasal spray sennosides 8.6 mg-docusate sodium 1 tab PO BEDTIME 12/01/23 50 mg tablet (Senexon-S) Previous Rx's ?Medication ?Instructions ?Recorded docusate sodium 100 mg capsule 100 mg PO BID #60 caps 05/10/23 aluminum-mag hydroxide-simethicone 10 ml PO TID PRN indigestion #240 05/23/23 400 mg-400 mg-40 mg/5 mL oral susp mL (Maalox Maximum Strength) lorazepam 1 mg tablet (Ativan) 1 mg PO BEDTIME PRN anxiety #10 05/23/23 tabs sucralfate 100 mg/mL oral 10 ml PO QIDACHS 2 weeks #414 mL 06/08/23 suspension (Carafate) polyethylene glycol 3350 17 17 g PO DAILY #238 grams 10/29/23 gram/dose oral powder (Miralax) omeprazole 20 mg capsule,delayed 20 mg PO BID #180 caps 11/30/23 release cholecalciferol (vitamin D3) 1,250 1,250 mcg PO QWEEK #8 caps 12/02/23 mcg (50,000 unit) capsule sywgizq-cqnpbzbaovvwq-skfwcqcm 250 2 tab PO Q6H PRN headache #20 tabs 01/04/24 mg-250 mg-65 mg tablet (Excedrin Extra Strength) diphenhydramine HCl 25 mg capsule 50 mg (2 x 25 mg) PO Q6H PRN 01/04/24 headache, nausea, vomiting #20 caps metoclopramide HCl 10 mg tablet 10 mg PO Q6H PRN nausea and 01/04/24 (Reglan) vomiting #20 tabs benzocaine 20 % mucosal aerosol 1 spray mucous membrane TID PRN 02/12/24 spray (HurriCaine) sore throat #57 grams Allergies Allergy/AdvReac Type Severity Reaction Status Date / Time No Known Allergies Allergy Verified 02/12/24 09:45 Review of Systems Review of Systems: Yes all other systems are reviewed and are negative [facility] Past Medical History Medical History Depression Anemia GERD (gastroesophageal reflux disease) H. pylori infection Surgical History Hx of colonoscopy History of esophagogastroduodenoscopy (EGD) Surgical history unknown Social History Social History Household Members: Spouse, Family and Children Housing: House Do you presently have visiting nurse or other home services: No Alcohol intake: never Patient Tobacco Use Status: Never used Tobacco Smoked in Last 30 Days: No Use of substances other than those prescribed or required for medical reasons: No Advance Directives: No Advance Directives Information Provided: Yes service: No Physical Exam Vital Signs: Vital Signs: Last Vital Signs Temp 97.9 F 02/12/24 11:25 Pulse 70 02/12/24 11:25 Resp 18 02/12/24 11:25 BP 100/72 02/12/24 11:25 Pulse Ox 98 02/12/24 11:25 O2 Del Method Room Air 02/12/24 11:25 BMI result Body Mass Index 30.4 Appearance: Alert. Oriented X3. No acute distress. Head: normocephalic, atraumatic. Eyes: Pupils equal, round and reactive to light. ENT: Pharynx with moderate posterior erythema. No tonsillar swelling or exudate. uvula midline Neck: Normal inspection. Neck supple. CVS: Normal heart rate and rhythm. Pulses normal. Respiratory: No respiratory distress. Breath sounds normal. Abdomen: Soft and nontender. +BS x4 Skin: Skin warm and dry. Normal skin color. Normal skin turgor. No rashes. Extremities: No lower extremity edema. No joint swelling. Neuro/psych: Oriented X 3. No motor deficit. No sensory deficit. CN II-XII intact. Normal speech and cognition. Medications Administered Discontinued Medications Generic Name Dose Route Start Last Admin Trade Name Freq PRN Reason Stop Dose Admin Ibuprofen 600 mg 02/12/24 10:41 02/12/24 10:44 Ibuprofen 600 Mg Tablet PO 02/12/24 10:42 600 mg ONCE ONE Administration Lidocaine HCl 15 ml 02/12/24 10:18 02/12/24 10:39 Lidocaine Hcl Viscous 2 % 15 Ml Solution MUCOUS MEM 02/12/24 10:19 15 ml ONCE ONE Administration Medical Decision Making Medical Decision Making [facility] Narrative: 38 yo female with recent influenza diagnosis presenting with persistent sore throat. exam is reassuring without any evidence of [employer]IFT. she is tolerating PO. strep test today is negative. given NSAID and topical lidocaine w/ symptomatic improvement in symptoms. stable for d/c home. isra used to discussed dx, tx and return precautions. Differential Diagnosis Differential Diagnoses: The differential diagnosis associated with the presentation includes strep, covid, flu, rsv, other viral syndrome, bronchitis, pneumonia, no evidence of peritonsillar abcsess or retropharyngeal abscess Admission/Observation Consideration of admission/observation: Escalation of care including admiss ion/observation considered 2nd ER visit - tolerating po and no signs of abscess, comfortable w/ dc Lab Data [facility] Lab Attestation statement: I reviewed the patient's lab results. Labs: Lab Results 02/12/24 Range/Units 10:08 S. pyogenes GrpA SEGUNDO Negative (Negative) External Record Review External record reviewed: Office record, Outpatient record, Prior outpatient labs and Prior outpatient radiology Prescription Management I considered prescription management with: Pain Medication, Antiviral and Antibiotic Critical Care Time Critical Care Time Critical Care Time: No Discharge Plan Discharge Clinical Impression: Influenza Pharyngitis Qualifiers: Pharyngitis/tonsillitis etiology: unspecified etiology Qualified Code(s): J02.9 - Acute pharyngitis, unspecified Patient Disposition: Home, Self-Care Instructions: Pharyngitis (ED), Influenza (DC) Additional Instructions: You tested negative for Strep throat. No need for antibiotics Your sore throat is due to the flu Treatment is supportive care. Take Motrin and Tylenol as needed for pain. Use warm salt water gargles 3 times per day. Recommend [id number]-ffz-vkjblza Chloraseptic spray or Cepacol lozenges to help numb the back of your throat A throat spray was sent to your pharmacy Rest and drink plenty of fluids. Follow-up with your doctor as needed. If you develop new or worsening symptoms call 911 or come back to the ER for further evaluation. Prescriptions: New HurriCaine 20 % aerosol,spray 1 spray mucous membrane TID PRN (Reason: sore throat) Qty: 57 0RF No Action polyethylene glycol 3350 [Miralax] 17 gram/dose powder 17 g PO DAILY Qty: 238 2RF omeprazole 20 mg capsule,delayed release(DR/EC) 20 mg PO BID Qty: 180 3RF cholecalciferol (vitamin D3) 1,250 mcg (50,000 unit) capsule 1,250 mcg PO QWEEK Qty: 8 0RF lorazepam [Ativan] 1 mg tablet 1 mg PO BEDTIME PRN (Reason: anxiety) Qty: 10 0RF alum-mag hydroxide-simeth [Maalox Maximum Strength] 400-400-40 mg/5 mL suspension 10 ml PO TID PRN (Reason: indigestion) Qty: 240 0RF sertraline 25 mg tablet 25 mg PO DAILY docusate sodium 100 mg Capsule 100 mg PO BID Qty: 60 0RF diphenhydramine HCl 25 mg capsule 50 mg PO Q6H PRN (Reason: headache, nausea, vomiting) Qty: 20 0RF metoclopramide HCl [Reglan] 10 mg tablet 10 mg PO Q6H PRN (Reason: nausea and vomiting) Qty: 20 0RF Excedrin Extra Strength 250-250-65 mg tablet 2 tab PO Q6H PRN (Reason: headache) Qty: 20 0RF ipratropium bromide 42 mcg (0.06 %) spray,non-aerosol intranasal sennosides-docusate sodium [Senexon-S] 8.6-50 mg tablet 1 tab PO BEDTIME famotidine 20 mg tablet 20 mg PO BID sucralfate [Carafate] 100 mg/mL suspension 10 ml PO QIDACHS 14 Days Qty: 414 0RF Interventions: ED Discharge Assessment Last Done: 02/12/24 11:25 Discharge Date/Time: 02/12/24 11:26 Print Language: Other
[2024-02-12 11:25] VITALS: BP 100/72; PULSE 70; RESP 18; TEMP 36.6; O2SAT 98
== END 2024-02-12 11:26 | disposition home or self-care (01) ==
PROVIDERS: Physician Assistant; Emergency Provider Emergency Medicine Emergency Medical Services
DX: J11.1 Influenza due to unidentified influenza virus with other respiratory manifestations (principal)
CPT/HCPCS: 87651; 93005; 99283; 99284

== ENCOUNTER → 2024-02-12 09:53 | Outpatient (BNV) | payer MEDICAID, SELFPAY | PROVIDERS: Emergency Provider Emergency Medicine Emergency Medical Services; Visit Provider Internal Medicine Cardiovascular Disease | DX: R00.1 Bradycardia, unspecified (principal) | CPT/HCPCS: 93010 ==

== ENCOUNTER 2024-02-23 09:03 | Outpatient (AMB) | payer MEDICAID, SELFPAY ==
--- NOTE | 2024-02-23 09:04 | A.OFFVIS_ITS ---
Vital Signs 02/23/24 09:06 Height 5 ft 2 in Weight 165 lb 5.547 oz BMI 30.2 BP 109/61 Blood Pressure Location Lt brachial Position Sitting Pulse 67 Intake Visit Reasons: 3 month follow up anemia Intake Note: Ermelinda presents in the office as a 3 month follow up. CC: Pains in the stomach, no irregular bowel movements. Electronic Publisher Required: Yes Electronic Publisher Name: [id number] Allergies No Known Allergies Allergy (Verified 02/23/24 09:07) HPI Comments Details: 37y.o F Afosito burris speaking who is here for weakness and fatigue due to severe iron deficiency from menstrual losses. Reports longstanding hx of acid reflux which has been managed on pepcid however for the past one month her discomfort has worsened and not gotten better despite adding omeprazole BID. No difficulty swallowing, but does report occ nausea. She was also recently diagnosed with H Pylori and was treated with quad therapy but unclear if he had a TIN. Pt was also noted to have severe microcytic anemia. Reports normal flow for her periods - changes pads 5-6 times a day. No melena or hematochezia reported. 08/20/23: 1. Normal esophagus 2. Gastritis (biopsy) 3. Abnormal duodenal mucosa (biopsy) 4. Poor prep 5. External and internal hemorrhoids Path: A. Duodenum, biopsy: Small intestinal mucosa with mildly increased intraepithelial lymphocytes and preserved villous architecture. B. Stomach, random, biopsy: - Antral-type and oxyntic mucosa with moderate chronic inactive inflammation. - Rare forms suspicious for H. pylori identified. C. Esophagus, lower, biopsy: - Cardiac-type mucosa with mild chronic inactive inflammation; no intestinal metaplasia seen. - Active esophagitis (maximum eosinophil count 1 per high powered field). D. Esophagus, middle, biopsy: Squamous epithelium within normal limits; no inflammation seen. 08/31/23: Reports continued sensation of sour brash and burning sensation coming up to her chest. Reports considerable fatigue and mood changes as well. EGD/colo findings reviewed. [place] was poor prep and will be rebooked. For EGD - appears has persistent H Pylori despite tx earlier this year through her PCP. 10/13/23: Was seen by the jb Garcia as urgent visit as pt complained severe constipation and tiredness along with RUQ pain. An US RUQ was done which was normal. SHe was also switched to a different iron formulation for better PO tolerance. 12/01/23: Today reports that continues to have severe abd cramping and pain with constipation whenever she takes the iron pill so has not been able to take it more than 2-3 times a week since last month. With this continues to report weakness, easy fatigability and mood changes. H Pylori TIN negative i.e successfully eradicated. 02/23/24: Here for 3 month follow up. Unfortunately never got iron infusions. Was not sure where to get them from and reports never got contacted by infusion suite. Continues to have low energy, headaches, restless sleep. [facility] Medical History Depression Anemia GERD (gastroesophageal reflux disease) H. pylori infection Surgical History Hx of colonoscopy History of esophagogastroduodenoscopy (EGD) Surgical history unknown Social History Household Members: Spouse, Family and Children Housing: House Do you presently have visiting nurse or other home services: No Alcohol intake: never Patient Tobacco Use Status: Never used Tobacco service: No Review of Systems Const All systems reviewed & are unremarkable except as noted in HPI and below Physical Exam Vital Signs: Last Vital Signs Pulse 67 02/23/24 09:06 BP 109/61 02/23/24 09:06 BMI result Body Mass Index 30.2 Const General: healthy appearing and no acute distress Orientation/consciousness: patient oriented x3 Eyes Conjunctivae: conjunctival abnormal (Pallor) Resp Effort & Inspection: normal respiratory effort and able to speak in complete sentences Neuro General: patient oriented x3 and gait normal Extrem General: Yes normal to inspection Assessment & Plan Assessment & Plan (1) Anemia: Code(s): D64.9 - Anemia, unspecified Category: Medical (2) Epigastric pain: Code(s): R10.13 - Epigastric pain Category: Medical (3) H. pylori infection: Code(s): A04.8 - Other specified bacterial intestinal infections Category: Medical Plan 1. 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 H Pylori successfully eradicated with quad therapy. Discussed starting notriptyline but pt not sure if she is also taking sertraline - noted on her med list and appears to have been dispensed by pharmacy at least in October. - patient to bring her med bottles at next visit 2. Iron deficiency anemia: Educated that fatigue and lack of energy likely due to severe anemia. Mag johnson, did not receive Venofer infusions in the interim. She requests that her is contacted for appointments, number sent to RN in workload. Plan: - Venofer 200mg qweekly x 5 doses - Check CBC, iron studies 2 month post treatment. Follow up: in 4 months Orders: Referrals Infusion Center Notification D64.9 - Anemia, unspecified Medications: Discontinued diphenhydramine HCl Discontinued Reason: Doctor's Order 50 mg (2 x 25 mg) PO Q6H PRN 20 caps 0RF headache, nausea, vomiting metoclopramide HCl (Reglan) Discontinued Reason: Doctor's Order 10 mg PO Q6H PRN 20 tabs 0RF nausea and vomiting Coding Level of Care Code Est Pt Level 4 (83913) Diagnoses Anemia D64.9 Epigastric pain R10.13 H. pylori infection A04.8
[2024-02-23 09:06] VITALS: BP 109/61; PULSE 67; BMI 30.2
== END 2024-02-23 10:06 | disposition home or self-care (01) ==
LOC: HO.HGI 09:03
PROVIDERS: Referring Provider Nurse Practitioner Family; Visit Provider Internal Medicine
DX: D64.9 Anemia, unspecified (principal); R10.13 Epigastric pain; A04.8 Other specified bacterial intestinal infections
CPT/HCPCS: 99214

== ENCOUNTER → 2024-02-23 09:03 | Outpatient (BNVA) | payer MEDICAID, SELFPAY | PROVIDERS: Visit Provider Internal Medicine | DX: D64.9 Anemia, unspecified (principal); A04.8 Other specified bacterial intestinal infections; R10.13 Epigastric pain | CPT/HCPCS: 99212 ==

== ENCOUNTER 2024-03-29 13:00 | Outpatient (RCR) | payer MEDICAID, SELFPAY ==
[2024-02-29 12:55] VITALS: BP 106/65; PULSE 72; RESP 16; TEMP 36.6; O2SAT 98
[2024-02-29] MEDS: Iron Sucrose Complex 200 MG in 0.9 % Sodium Chloride 100 ML 440 MG IV (13:10)
[2024-03-07 13:38] VITALS: BP 96/63; PULSE 63; RESP 16; TEMP 36.6; O2SAT 97
[2024-03-07] MEDS: Iron Sucrose Complex 200 MG in 0.9 % Sodium Chloride 100 ML 440 MG IV (13:51)
[2024-03-07] MEDS: 0.9 % Sodium Chloride Flush 10 ML SYRINGE 5 ML IVFLUSH (14:09)
[2024-03-14 13:31] VITALS: BP 108/57; PULSE 68; RESP 16; TEMP 36.8; O2SAT 98
[2024-03-14] MEDS: Iron Sucrose Complex 200 MG in 0.9 % Sodium Chloride 100 ML 440 MG IV (13:40)
[2024-03-21 13:08] VITALS: BP 97/58; PULSE 69; RESP 16; TEMP 36.7; O2SAT 99
[2024-03-21] MEDS: Iron Sucrose Complex 200 MG in 0.9 % Sodium Chloride 100 ML 440 MG IV (13:24)
[2024-03-29 13:15] VITALS: BP 100/61; PULSE 67; RESP 16; TEMP 36.6; O2SAT 98
[2024-03-29] MEDS: Iron Sucrose Complex 200 MG in 0.9 % Sodium Chloride 100 ML 440 MG IV (13:25)
[2024-03-29] MEDS: 0.9 % Sodium Chloride Flush 10 ML SYRINGE 5 ML IVFLUSH (13:49)
== END 2024-03-29 14:00 | disposition home or self-care (01) ==
LOC: HO.INF 13:00
PROVIDERS: Visit Provider Internal Medicine
DX: D50.9 Iron deficiency anemia, unspecified (principal)
CPT/HCPCS: 96365; 96374; J1756

== ENCOUNTER 2024-04-04 18:25 | Emergency (ER) | payer MEDICAID, SELFPAY ==
[2024-04-04 19:35] VITALS: BP 100/66; PULSE 65; RESP 20; TEMP 36.7; O2SAT 99; BMI 27.6
--- NOTE | 2024-04-04 19:42 | ED_ITS ---
HPI - General Adult General Chief complaint: General Medical Stated complaint: body aches fever Time Seen by Provider: 04/05/24 05:37 Source: patient Mode of arrival: ambulatory Limitations: no limitations History of Present Illness ED Provider: Dr. Amanda Gomes HPI narrative: Patient is a 38-year-old female Tunisian speaking only Patient comes in the emergency room with a plethora of complaints. Patient complaining of pain all over, bilateral leg pain, chronic anal/rectal pain for years, abdominal pain, needs medication refills. Patient states her symptoms have been present for about 1 week Related Data Home Medications ?Medication ?Instructions ?Recorded ?Confirmed sertraline 25 mg tablet 25 mg PO DAILY 05/08/23 10/13/23 famotidine 20 mg tablet 20 mg PO BID 06/08/23 10/13/23 ipratropium bromide 42 mcg (0.06 intranasal 12/01/23 %) nasal spray sennosides 8.6 mg-docusate sodium 1 tab PO BEDTIME 12/01/23 50 mg tablet (Senexon-S) Previous Rx's ?Medication ?Instructions ?Recorded docusate sodium 100 mg capsule 100 mg PO BID #60 caps 05/10/23 aluminum-mag hydroxide-simethicone 10 ml PO TID PRN indigestion #240 05/23/23 400 mg-400 mg-40 mg/5 mL oral susp mL (Maalox Maximum Strength) lorazepam 1 mg tablet (Ativan) 1 mg PO BEDTIME PRN anxiety #10 05/23/23 tabs sucralfate 100 mg/mL oral 10 ml PO QIDACHS 2 weeks #414 mL 06/08/23 suspension (Carafate) polyethylene glycol 3350 17 17 g PO DAILY #238 grams 10/29/23 gram/dose oral powder (Miralax) omeprazole 20 mg capsule,delayed 20 mg PO BID #180 caps 11/30/23 release cholecalciferol (vitamin D3) 1,250 1,250 mcg PO QWEEK #8 caps 12/02/23 mcg (50,000 unit) capsule xroaliw-gdkkozkpsuckb-voylzszp 250 2 tab PO Q6H PRN headache #20 tabs 01/04/24 mg-250 mg-65 mg tablet (Excedrin Extra Strength) benzocaine 20 % mucosal aerosol 1 spray mucous membrane TID PRN 02/12/24 spray (HurriCaine) sore throat #57 grams ibuprofen 600 mg tablet 600 mg PO TID PRN fever or pain 04/05/24 #20 tabs omeprazole 20 mg capsule,delayed 20 mg PO DAILY #90 caps 04/05/24 release phenylephrine 0.25 %-mineral oil 1 appl CA BID PRN hemorrhoids #28 04/05/24 14 %-petrolatm 74.9 % rectal grams ointment (Preparation H) Allergies Allergy/AdvReac Type Severity Reaction Status Date / Time No Known Allergies Allergy Verified 04/04/24 19:42 Review of Systems 2 Review of Systems: Constitutional : No Weight loss, No Fever, No Chills, No Night Sweats, No Fatigue, No Malaise ENT/Mouth : No Hearing loss, No Ear Pain, No Nasal Congestion, No Sinus Pain, No Hoarseness, No sore throat, No Rhinorrhea, No Swallowing Difficulty Eyes: No Eye Pain, No Swelling, No Redness, No Foreign Body, No Discharge, No Vision Changes Cardiovascular : No Chest Pain, No SOB, No Dyspnea on Exertion, No Orthopnea, No Edema, No Palpitations Respiratory : No Cough, No Sputum, No Wheezing, No Smoke Exposure, No Dyspnea Gastrointestinal : No Nausea, No Vomiting, No Diarrhea, No Constipation, complaining of epigastric burning after eating which is chronic, ran out of omeprazole, complaining of chronic anal pain Genitourinary : no irregular bleeding, No Dysuria, No Urinary Frequency, No Hematuria, No Urinary Incontinence, No Urgency, No Flank Pain, No Urinary Flow Changes, No Hesitancy Musculoskeletal : Bilateral leg pain No Myalgias, No Joint Swelling Skin : No Skin Lesions, No rash Neuro : No Weakness, No Numbness, No Paresthesias, No Loss of Consciousness, No Dizziness, No Headache Psych : No Anxiety/Panic, No Depression, No SI/HI/AH/VH, No Social Issues, Heme/Lymph: No Bruising, No Bleeding,No Lymphadenopathy Endocrine : No Polyuria, No Polydipsia, No Temperature Intolerance PMFSH Past Medical History Medical History Depression Anemia GERD (gastroesophageal reflux disease) H. pylori infection Surgical History Hx of colonoscopy History of esophagogastroduodenoscopy (EGD) Surgical history unknown Social History Social History Household Members: Spouse, Family and Children Housing: House Do you presently have visiting nurse or other home services: No Alcohol intake: never Patient Tobacco Use Status: Never used Tobacco Smoked in Last 30 Days: No Use of substances other than those prescribed or required for medical reasons: No Advance Directives: No Advance Directives Information Provided: Yes service: No Physical Exam ED Vital Signs: Vital Signs - 24 hr 04/04/24 19:35 04/05/24 00:59 04/05/24 06:07 Temperature 98.1 F 97.8 F 97.8 F Pulse Rate 65 54 66 Respiratory Rate 20 19 18 Blood Pressure 100/66 114/71 97/64 Pulse Oximetry 99 99 97 Oxygen Delivery Method Room Air Room Air Room Air BMI result Body Mass Index 27.6 Const Other: Appearance: Alert. Oriented X3. No acute distress. Well-appearing Eyes: Pupils equal, round and reactive to light. ENT: Pharynx normal. Neck: Normal inspection. Neck supple. No lymph nodes noted. No crepitus CVS: Normal heart rate and rhythm. Pulses normal. Normal S1 and S2 Respiratory: No respiratory distress. Breath sounds normal. No Wheezing. No rales Abdomen: Soft and nontender. No rigidity. No distention. There are no external hemorrhoids Skin: Skin warm and dry. A bit skin color. Normal skin turgor. Extremities: No lower extremity edema. No Lacerations. No Rash Neuro: Oriented X 3. No motor deficit. No sensory deficit. Moving all extremities. No slurred speech. CN 2 through 12 grossly intact Psych: calm, cooperative, normal affect Course Course Course Narrative: RME, this is a rapid medical exam performed by Amando Gannon please refer to primary provider for complete H&P- 38 year old female presents for evaluation of abdominal pain, fevers Medical Decision Making Medical Decision Making MDM Narrative: -patient was offered IM medication, patient declined. -patient will be given a referral to General surgery for possible band ligation. Patient states that about 10 years ago she had a surgery done for internal hemorrhoids. Patient does have history of chronic anemia, likely secondary from ongoing internal hemorrhoid bleeding -my interpretation of labs, hemoglobin 10.9, chemistry within normal limits Differential Diagnosis Differential Diagnoses: The differential diagnosis associated with the presentation includes Lab Data 04/04/24 20:11 04/04/24 20:11 Labs: Lab Results 04/04/24 Range/Units 20:11 WBC 5.5 (4.8-10.8) X10*3/uL RBC 4.29 (4.20-5.50) X10*6/uL Hgb 10.9 L (12.0-16.0) g/dl Hct 34.5 L (37.0-47.0) % MCV 80.4 (80.0-98.0) fL MCH 25.4 L (27.0-33.0) pg MCHC 31.6 (31.0-35.0) g/dl RDW 17.0 H (11.0-16.0) % Plt Count 205 (160-400) X10*3/uL MPV 9.7 (9.4-12.3) fL Immature Gran % (Auto) 0.2 (0.0-0.4) % Neut % (Auto) 51.7 (45-73) % Lymph % (Auto) 38.4 (20-40) % [place] % (Auto) 7.5 (2-11) % Eos % (Auto) 2.0 (0-4) % Baso % (Auto) 0.2 (0-2) % Lymph # (Auto) 2.1 (1.2-4.9) X10*3/uL [place] # (Auto) 0.4 (0.1-1.2) X10*3/uL Eos # (Auto) 0.1 (0.0-0.4) X10*3/uL Baso # (Auto) 0.0 (0.0-0.2) X10*3/uL Abs Immat Gran (auto) 0.01 (0.00-0.03) X10*3/uL Absolute Neuts (auto) 2.8 (2.0-8.3) x10*3/uL Absolute Nucleated RBC 0.000 (0.0-0.012) X10*3/uL Nucleated RBC % (auto) 0.0 (0.0-0.2) /100WBC Sodium 139 (135-145) mmol/L Potassium 4.2 (3.3-5.1) mmol/L Chloride 105 (96-108) mmol/L Carbon Dioxide 25 (22-29) mmol/L Anion Gap 13 (12-20) BUN 19 H (9-16) mg/dL Creatinine 0.75 (0.5-1.4) mg/dL Estim Creat Clear Calc 101.5 Estimated GFR > 60 Random Glucose 129 H (60-115) mg/dL Calcium 9.5 (8.4-10.2) mg/dL Total Bilirubin 0.2 (0.0-1.0) mg/dL AST 89 H (5-31) U/L ALT 147 H (0-31) U/L Alkaline Phosphatase 103 (39-117) U/L Total Protein 7.5 (6.5-8.0) g/dL Albumin 4.2 (3.5-5.0) g/dL Lipase 25 (8-78) U/L Beta HCG, Quant < 2 mIU/mL Influenza Type A (PCR) NEGATIVE (Negative) Influenza Type B (PCR) NEGATIVE (Negative) RSV RNA Qual (PCR) NEGATIVE (Negative) SARS-CoV-2 RNA (RT-PCR) NEGATIVE (Negative) Discharge Plan Discharge Clinical Impression: Hemorrhoids, internal, Chronic GERD, Generalized pain Patient Disposition: Home, Self-Care Instructions: Hemorrhoids (ED), Gastroesophageal Reflux Disease (ED) Additional Instructions: Please follow-up with your primary care physician tomorrow. If you have any worsening or new symptoms, please return to the emergency room or call 911 Prescriptions: New Preparation H 0.25-14-74.9 % ointment 1 appl CA BID PRN (Reason: hemorrhoids) Qty: 28 0RF omeprazole 20 mg capsule,delayed release(DR/EC) 20 mg PO DAILY Qty: 90 0RF ibuprofen 600 mg tablet 600 mg PO TID PRN (Reason: fever or pain) Qty: 20 0RF No Action polyethylene glycol 3350 [Miralax] 17 gram/dose powder 17 g PO DAILY Qty: 238 2RF omeprazole 20 mg capsule,delayed release(DR/EC) 20 mg PO BID Qty: 180 3RF cholecalciferol (vitamin D3) 1,250 mcg (50,000 unit) capsule 1,250 mcg PO QWEEK Qty: 8 0RF lorazepam [Ativan] 1 mg tablet 1 mg PO BEDTIME PRN (Reason: anxiety) Qty: 10 0RF alum-mag hydroxide-simeth [Maalox Maximum Strength] 400-400-40 mg/5 mL suspension 10 ml PO TID PRN (Reason: indigestion) Qty: 240 0RF sertraline 25 mg tablet 25 mg PO DAILY docusate sodium 100 mg Capsule 100 mg PO BID Qty: 60 0RF Excedrin Extra Strength 250-250-65 mg tablet 2 tab PO Q6H PRN (Reason: headache) Qty: 20 0RF HurriCaine 20 % aerosol,spray 1 spray mucous membrane TID PRN (Reason: sore throat) Qty: 57 0RF ipratropium bromide 42 mcg (0.06 %) spray,non-aerosol intranasal sennosides-docusate sodium [Senexon-S] 8.6-50 mg tablet 1 tab PO BEDTIME famotidine 20 mg tablet 20 mg PO BID sucralfate [Carafate] 100 mg/mL suspension 10 ml PO QIDACHS 14 Days Qty: 414 0RF Print Language: Other
[2024-04-04 20:15] LABS: MANUAL DIFF FLAG NO
[2024-04-04 20:18] LABS: Basophils Percent Auto 0.2 % (0-2); Eosinophils Absolute Auto 0.1 X10*3/uL (0.0-0.4); Hematocrit 34.5 % (37.0-47.0); Hemoglobin 10.9 g/dl (12.0-16.0); Imm Gran Abs Auto 0.01 X10*3/uL (0.00-0.03); Imm Gran Pct Auto 0.2 % (0.0-0.4); Lymphocytes Absolute Auto 2.1 X10*3/uL (1.2-4.9); Lymphocytes Percent Auto 38.4 % (20-40); Mean Corpuscular HGB Conc 31.6 g/dl (31.0-35.0); Mean Corpuscular Hemoglobin 25.4 pg (27.0-33.0); Mean Corpuscular Volume 80.4 fL (80.0-98.0); Mean Platelet Volume 9.7 fL (9.4-12.3); Monocytes Absolute Auto 0.4 X10*3/uL (0.1-1.2); Monocytes Percent Auto 7.5 % (2-11); Neutrophils Absolute Auto 2.8 x10*3/uL (2.0-8.3); Neutrophils Percent Auto 51.7 % (45-73); Platelet Count 205 X10*3/uL (160-400); Red Blood Count 4.29 X10*6/uL (4.20-5.50); White Blood Count 5.5 X10*3/uL (4.8-10.8)
[2024-04-04 20:36] LABS: Alanine Aminotransferase 147 U/L (0-31); Albumin Level 4.2 g/dL (3.5-5.0); Alkaline Phosphatase 103 U/L (39-117); Anion Gap 13 (12-20); Aspartate Amino Transferase 89 U/L (5-31); Bilirubin Total 0.2 mg/dL (0.0-1.0); Blood Urea Nitrogen 19 mg/dL (9-16); Calcium 9.5 mg/dL (8.4-10.2); Carbon Dioxide 25 mmol/L (22-29); Chloride 105 mmol/L (96-108); Creatinine Clr Calc Pharmacy 101.5; Estimated Glomerular Filt Rate > 60; Glucose Random 129 mg/dL (60-115); Lipase 25 U/L (8-78); Potassium 4.2 mmol/L (3.3-5.1); Sodium 139 mmol/L (135-145); Total Protein 7.5 g/dL (6.5-8.0)
[2024-04-04 20:38] LABS: HCG Quantitative < 2 mIU/mL
[2024-04-04 20:53] LABS: Influenza A PCR NEGATIVE (Negative); Influenza B PCR NEGATIVE (Negative); Resp Syncy Virus RNA Qual PCR NEGATIVE (Negative); SARS COV2 PCR INHOUSE NEGATIVE (Negative)
[2024-04-05 00:59] VITALS: BP 114/71; PULSE 54; RESP 19; TEMP 36.6; O2SAT 99
--- NOTE | 2024-04-05 01:50 | PC.NURSE ---
pt in room waiting to be seen by ED provider. resting comfortably on stretcher, in no apparent distress. call gariaby within reach
[2024-04-05 06:07] VITALS: BP 97/64; PULSE 66; RESP 18; TEMP 36.6; O2SAT 97
--- NOTE | 2024-04-05 06:20 | PC.NURSE ---
foot miter operator utilized with MD Gomes at bedside.
[2024-04-05 06:33] VITALS: BP 97/64; PULSE 66; RESP 18; TEMP 36.6; O2SAT 97
== END 2024-04-05 06:45 | disposition home or self-care (01) ==
PROVIDERS: Physician Assistant; Emergency Provider Emergency Medicine
DX: R10.84 Generalized abdominal pain (principal); K64.8 Other hemorrhoids; K21.9 Gastro-esophageal reflux disease without esophagitis
CPT/HCPCS: 0241U; 36415; 80053; 83690; 84702; 85025; 99283; 99284

== ENCOUNTER 2024-06-20 14:02 | Outpatient (AMB) | payer MEDICAID, SELFPAY ==
--- NOTE | 2024-06-20 14:05 | MHC.OFFVIS ---
Vital Signs 06/20/24 14:07 Height 5 ft 4 in Weight 169 lb 12.095 oz BMI 29.1 BP 107/71 Blood Pressure Location Lt brachial Position Sitting Pulse 69 Intake Visit Reasons: 4 month follow up Intake Note: Ermelinda presents in the office as a 4 month follow up. CC: Still having the pains in her stomach. Has both constipation and diarrhea. Rotary Swaging Machine Operator Required: Yes Allergies No Known Allergies Allergy (Verified 06/20/24 14:07) HPI Comments Details: 37y.o F Karol burris speaking who is here for weakness and fatigue due to severe iron deficiency from menstrual losses. Reports longstanding hx of acid reflux which has been managed on pepcid however for the past one month her discomfort has worsened and not gotten better despite adding omeprazole BID. No difficulty swallowing, but does report occ nausea. She was also recently diagnosed with H Pylori and was treated with quad therapy but unclear if he had a TIN. Pt was also noted to have severe microcytic anemia. Reports normal flow for her periods - changes pads 5-6 times a day. No melena or hematochezia reported. 08/20/23: 1. Normal esophagus 2. Gastritis (biopsy) 3. Abnormal duodenal mucosa (biopsy) 4. Poor prep 5. External and internal hemorrhoids Path: A. Duodenum, biopsy: Small intestinal mucosa with mildly increased intraepithelial lymphocytes and preserved villous architecture. B. Stomach, random, biopsy: - Antral-type and oxyntic mucosa with moderate chronic inactive inflammation. - Rare forms suspicious for H. pylori identified. C. Esophagus, lower, biopsy: - Cardiac-type mucosa with mild chronic inactive inflammation; no intestinal metaplasia seen. - Active esophagitis (maximum eosinophil count 1 per high powered field). D. Esophagus, middle, biopsy: Squamous epithelium within normal limits; no inflammation seen. 08/31/23: Reports continued sensation of sour brash and burning sensation coming up to her chest. Reports considerable fatigue and mood changes as well. EGD/colo findings reviewed. [place] was poor prep and will be rebooked. For EGD - appears has persistent H Pylori despite tx earlier this year through her PCP. 10/13/23: Was seen by the jb Garcia as urgent visit as pt complained severe constipation and tiredness along with RUQ pain. An US RUQ was done which was normal. SHe was also switched to a different iron formulation for better PO tolerance. 12/01/23: Today reports that continues to have severe abd cramping and pain with constipation whenever she takes the iron pill so has not been able to take it more than 2-3 times a week since last month. With this continues to report weakness, easy fatigability and mood changes. H Pylori TIN negative i.e successfully eradicated. 02/23/24: Here for 3 month follow up. Unfortunately never got iron infusions. Was not sure where to get them from and reports never got contacted by infusion suite. Continues to have low energy, headaches, restless sleep. 06/20/24: Here for follow up. Feels much better since receiving iron infusions. Main complaint today is severe abd pain that starts in the morning even before she has eaten anything. Mainly in epigastrium and RUQ, burning, crampy, assoc with nausea. Has been on famotidine and sucralfate without any relief. US without gallstones in Nov 2023. Sometimes has diarrhea but pain does not always get better with BMs. [facility] Medical History Depression Anemia GERD (gastroesophageal reflux disease) H. pylori infection Surgical History Hx of colonoscopy History of esophagogastroduodenoscopy (EGD) Surgical history unknown Social History Household Members: Spouse, Family and Children Housing: House Do you presently have visiting nurse or other home services: No Alcohol intake: never Patient Tobacco Use Status: Never used Tobacco service: No Review of Systems Const All systems reviewed & are unremarkable except as noted in HPI and below Physical Exam Vital Signs: Last Vital Signs Pulse 69 06/20/24 14:07 BP 107/71 06/20/24 14:07 BMI result Body Mass Index 29.1 No apparent distress Nonicteric Abdomen soft, nondistended Alert and oriented x3, normal gait Assessment & Plan Assessment & Plan (1) Anemia: Code(s): D64.9 - Anemia, unspecified Category: Medical (2) Epigastric pain: Code(s): R10.13 - Epigastric pain Category: Medical Plan 1. 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 H Pylori successfully eradicated with quad therapy. Discussed starting notriptyline as pt does not appear to be on sertraline - has not filled it since last year. Thoroughly counseled that will take at least 4-8 weeks before noticing improvement. In the meantime, can take mylanta OTC prn for symptomatic relief. - Stop carafate - Start mylanta - Nortriptyline 10mg po once at bedtime - to be increased to 20mg after 2 weeks 2. Iron deficiency anemia: s/p iron infusions x 5. Recehck labs pending. Plan: - Check CBC, iron studies Follow up: in 3 months Orders: Orders IRON PROFILE Today D64.9 - Anemia, unspecified Complete Blood Count no Diff Today D64.9 - Anemia, unspecified Ferritin Today D64.9 - Anemia, unspecified Vitamin B12 and Folate Today D64.9 - Anemia, unspecified Liver Panel Today R10.11 - Right upper quadrant pain Medications: New nortriptyline Take 1 cap at bedtime x 2 weeks, and then increase to 2 caps at bedtime. 10 mg PO BEDTIME 90 days 90 caps 1RF calcium carb-mag hydrox-simeth 1,200 mg-270 mg -80 mg/10 mL (Mylanta Coat-Cool) 15 mL PO TID 30 days PRN 1,350 mL 1RF abd pain Discontinued sucralfate (Carafate) Discontinued Reason: Doctor's Order 10 mL PO QIDACHS 2 weeks 414 mL 0RF Coding Level of Care Code Est Pt Level 4 (34690) Diagnoses Anemia D64.9 Epigastric pain R10.13
[2024-06-20 14:07] VITALS: BP 107/71; PULSE 69; BMI 29.1
== END 2024-06-20 14:41 | disposition home or self-care (01) ==
PROVIDERS: Referring Provider Nurse Practitioner Family; Visit Provider Internal Medicine
DX: D64.9 Anemia, unspecified (principal); R10.13 Epigastric pain
CPT/HCPCS: 99214

== ENCOUNTER → 2024-06-20 14:02 | Outpatient (BNVA) | payer MEDICAID, SELFPAY | PROVIDERS: Visit Provider Internal Medicine | DX: D64.9 Anemia, unspecified (principal); R10.13 Epigastric pain; E61.1 Iron deficiency; K59.00 Constipation, unspecified; R19.7 Diarrhea, unspecified | CPT/HCPCS: 99212 ==

== ENCOUNTER 2024-09-19 15:18 | Outpatient (REF) | payer MEDICAID, SELFPAY ==
[2024-09-19 17:00] LABS: Hematocrit 37.3 % (37.0-47.0); Mean Corpuscular HGB Conc 32.2 g/dl (31.0-35.0); Mean Corpuscular Hemoglobin 27.1 pg (27.0-33.0); Mean Corpuscular Volume 84.2 fL (80.0-98.0); Mean Platelet Volume 9.3 fL (9.4-12.3); Platelet Count 210 X10*3/uL (160-400); Red Blood Count 4.43 X10*6/uL (4.20-5.50); Red Cell Distribution Width 12.3 % (11.0-16.0); White Blood Count 6.6 X10*3/uL (4.8-10.8)
[2024-09-19 17:39] LABS: Calcium 9.6 mg/dL (8.4-10.2); Iron 73 mcg/dL (30-160); Percent Iron Saturation 24 % (15-50); Total Iron Binding Capacity 300 mcg/dL (228-428); Unsaturated Iron Binding 227 ug/dL
[2024-09-19 17:48] LABS: Ferritin 44 ng/mL (10-122); TSH reflex Free T4 0.77 uIU/mL (0.32-4.0)
[2024-09-19 18:04] LABS: Folate 8.6 ng/mL (> or = 4.0); Vitamin B12 666 pg/mL (200-900)
== END 2024-09-19 15:19 | disposition home or self-care (01) ==
LOC: HO.LAB 15:18
PROVIDERS: Visit Provider Internal Medicine
DX: D64.9 Anemia, unspecified (principal); R10.13 Epigastric pain; K59.09 Other constipation
CPT/HCPCS: 36415; 82310; 82607; 82728; 82746; 83540; 83735; 84443; 85027; 99212

== ENCOUNTER 2024-09-19 15:18 | Outpatient (AMB) | payer MEDICAID, SELFPAY ==
--- NOTE | 2024-09-19 15:27 | MHC.OFFVIS ---
Vital Signs 09/19/24 15:28 Height 5 ft 4 in Weight 169 lb 12.095 oz BMI 29.1 BP 115/76 Blood Pressure Location Lt brachial Position Sitting Pulse 74 Intake Visit Reasons: 3 month follow up Anemia Intake Note: Ermelinda presents in the office as a 3 month follow up for Anemia. CC: States that she is having pains in the stomach Visual Merchandiser Required: Yes Allergies No Known Allergies Allergy (Verified 09/19/24 15:28) HPI Comments Details: 37y.o F Karol burris speaking who is here for weakness and fatigue due to severe iron deficiency from menstrual losses. Reports longstanding hx of acid reflux which has been managed on pepcid however for the past one month her discomfort has worsened and not gotten better despite adding omeprazole BID. No difficulty swallowing, but does report occ nausea. She was also recently diagnosed with H Pylori and was treated with quad therapy but unclear if he had a TIN. Pt was also noted to have severe microcytic anemia. Reports normal flow for her periods - changes pads 5-6 times a day. No melena or hematochezia reported. 08/20/23: 1. Normal esophagus 2. Gastritis (biopsy) 3. Abnormal duodenal mucosa (biopsy) 4. Poor prep 5. External and internal hemorrhoids Path: A. Duodenum, biopsy: Small intestinal mucosa with mildly increased intraepithelial lymphocytes and preserved villous architecture. B. Stomach, random, biopsy: - Antral-type and oxyntic mucosa with moderate chronic inactive inflammation. - Rare forms suspicious for H. pylori identified. C. Esophagus, lower, biopsy: - Cardiac-type mucosa with mild chronic inactive inflammation; no intestinal metaplasia seen. - Active esophagitis (maximum eosinophil count 1 per high powered field). D. Esophagus, middle, biopsy: Squamous epithelium within normal limits; no inflammation seen. 08/31/23: Reports continued sensation of sour brash and burning sensation coming up to her chest. Reports considerable fatigue and mood changes as well. EGD/colo findings reviewed. [place] was poor prep and will be rebooked. For EGD - appears has persistent H Pylori despite tx earlier this year through her PCP. 10/13/23: Was seen by the jb Garcia as urgent visit as pt complained severe constipation and tiredness along with RUQ pain. An US RUQ was done which was normal. SHe was also switched to a different iron formulation for better PO tolerance. 12/01/23: Today reports that continues to have severe abd cramping and pain with constipation whenever she takes the iron pill so has not been able to take it more than 2-3 times a week since last month. With this continues to report weakness, easy fatigability and mood changes. H Pylori TIN negative i.e successfully eradicated. 02/23/24: Here for 3 month follow up. Unfortunately never got iron infusions. Was not sure where to get them from and reports never got contacted by infusion suite. Continues to have low energy, headaches, restless sleep. 06/20/24: Here for follow up. Feels much better since receiving iron infusions. Main complaint today is severe abd pain that starts in the morning even before she has eaten anything. Mainly in epigastrium and RUQ, burning, crampy, assoc with nausea. Has been on famotidine and sucralfate without any relief. US without gallstones in Nov 2023. Sometimes has diarrhea but pain does not always get better with BMs. 09/19/24: Here for follow up. 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 Labs still pending for MONY. Did not trial nortriptyline yet. Continues with cramping abd pain and constipation. Has hard stool every 2 days. Requests refill on Mylanta. Feels this gives her better relief than the other medication and wonders if she can stop what was previously prescribed. Has famotidine and omeprazole on her med list but pt unsure which one she is currently taking. Advised to call office and let us know as omeprazole may need to be tapered off to avoid rebound pyrosis. [facility], [facility] Medical History Depression Anemia GERD (gastroesophageal reflux disease) H. pylori infection Surgical History Hx of colonoscopy History of esophagogastroduodenoscopy (EGD) Surgical history unknown Social History Household Members: Spouse, Family and Children Housing: House Do you presently have visiting nurse or other home services: No Alcohol intake: never Patient Tobacco Use Status: Never used Tobacco service: No Review of Systems Const All systems reviewed & are unremarkable except as noted in HPI and below Physical Exam Vital Signs: Last Vital Signs Pulse 74 09/19/24 15:28 BP 115/76 09/19/24 15:28 BMI result Body Mass Index 29.1 No apparent distress Nonicteric Abdomen soft, nondistended Alert and oriented x3, normal gait Assessment & Plan Assessment & Plan (1) Anemia: Code(s): D64.9 - Anemia, unspecified Category: Medical (2) Epigastric pain: Code(s): R10.13 - Epigastric pain Category: Medical Plan 1. 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 H Pylori successfully eradicated with quad therapy. Again reminded to start notriptyline. Set expectation that can take anywhere from 4 to 8 weeks before noticing improvement. Since has intermittent constipation at baseline, best to also start miralax daily. - Nortriptyline 10mg po once at bedtime - to be increased to 20mg after 2 weeks - Start miralax 17g mixed in 8oz water daily - Can add mag oxide PRN for abd cramping and constipation - Mylanta PRN 2. Iron deficiency anemia: s/p iron infusions x 5. Recheck labs pending. Plan: - Check CBC, iron studies Follow up in 3 months Orders: Orders Ferritin Today D64.9 - Anemia, unspecified TSH reflex Free T4 Today K59.09 - Other constipation Calcium Today K59.09 - Other constipation Complete Blood Count no Diff Today D64.9 - Anemia, unspecified Vitamin B12 and Folate Today D64.9 - Anemia, unspecified IRON PROFILE Today D64.9 - Anemia, unspecified Magnesium Today K59.09 - Other constipation Medications: New magnesium oxide 400 mg (2 x 200 mg magnesium) PO DAILY 90 days PRN 180 tabs 0RF constipation polyethylene glycol 3350 (Miralax) 17 grams PO DAILY 30 days 510 grams 1RF Refilled calcium carb-mag hydrox-simeth 1,200 mg-270 mg -80 mg/10 mL (Mylanta Coat-Cool) 15 mL PO TID 30 days PRN 1,350 mL 1RF abd pain Discontinued docusate sodium Discontinued Reason: Doctor's Order 100 mg PO BID 60 caps 0RF Coding Level of Care Code Est Pt Level 3 (50663) Diagnoses Anemia D64.9 Epigastric pain R10.13
[2024-09-19 15:28] VITALS: BP 115/76; PULSE 74; BMI 29.1
== END 2024-09-19 16:10 | disposition home or self-care (01) ==
PROVIDERS: Visit Provider Internal Medicine
DX: D64.9 Anemia, unspecified (principal); R10.13 Epigastric pain
CPT/HCPCS: 99213

== ENCOUNTER 2024-12-28 09:04 | Outpatient (AMB) | payer MEDICAID, SELFPAY ==
--- NOTE | 2024-12-28 09:05 | MHC.OFFVIS ---
Vital Signs 12/28/24 09:08 Height 5 ft 4 in Weight 169 lb 12.095 oz BMI 29.1 BP 121/67 Blood Pressure Location Lt brachial Position Sitting Pulse 77 Intake Visit Reasons: f/u rescheduled from 12/12 Intake Note: Ermelinda presents in the office as a follow up. CC: Pains in the stomach, no irregular bowel movements, states that she gets acid reflux. Clinical Care Coordinator Required: Yes Clinical Care Coordinator Name: Callie [id number] Allergies No Known Allergies Allergy (Verified 09/19/24 15:28) HPI Comments Details: 37y.o F Karol burris speaking who is here for weakness and fatigue due to severe iron deficiency from menstrual losses. Reports longstanding hx of acid reflux which has been managed on pepcid however for the past one month her discomfort has worsened and not gotten better despite adding omeprazole BID. No difficulty swallowing, but does report occ nausea. She was also recently diagnosed with H Pylori and was treated with quad therapy but unclear if he had a TIN. Pt was also noted to have severe microcytic anemia. Reports normal flow for her periods - changes pads 5-6 times a day. No melena or hematochezia reported. 08/20/23: 1. Normal esophagus 2. Gastritis (biopsy) 3. Abnormal duodenal mucosa (biopsy) 4. Poor prep 5. External and internal hemorrhoids Path: A. Duodenum, biopsy: Small intestinal mucosa with mildly increased intraepithelial lymphocytes and preserved villous architecture. B. Stomach, random, biopsy: - Antral-type and oxyntic mucosa with moderate chronic inactive inflammation. - Rare forms suspicious for H. pylori identified. C. Esophagus, lower, biopsy: - Cardiac-type mucosa with mild chronic inactive inflammation; no intestinal metaplasia seen. - Active esophagitis (maximum eosinophil count 1 per high powered field). D. Esophagus, middle, biopsy: Squamous epithelium within normal limits; no inflammation seen. 08/31/23: Reports continued sensation of sour brash and burning sensation coming up to her chest. Reports considerable fatigue and mood changes as well. EGD/colo findings reviewed. [place] was poor prep and will be rebooked. For EGD - appears has persistent H Pylori despite tx earlier this year through her PCP. 10/13/23: Was seen by the jb Garcia as urgent visit as pt complained severe constipation and tiredness along with RUQ pain. An US RUQ was done which was normal. SHe was also switched to a different iron formulation for better PO tolerance. 12/01/23: Today reports that continues to have severe abd cramping and pain with constipation whenever she takes the iron pill so has not been able to take it more than 2-3 times a week since last month. With this continues to report weakness, easy fatigability and mood changes. H Pylori TIN negative i.e successfully eradicated. 02/23/24: Here for 3 month follow up. Unfortunately never got iron infusions. Was not sure where to get them from and reports never got contacted by infusion suite. Continues to have low energy, headaches, restless sleep. 06/20/24: Here for follow up. Feels much better since receiving iron infusions. Main complaint today is severe abd pain that starts in the morning even before she has eaten anything. Mainly in epigastrium and RUQ, burning, crampy, assoc with nausea. Has been on famotidine and sucralfate without any relief. US without gallstones in Nov 2023. Sometimes has diarrhea but pain does not always get better with BMs. 09/19/24: Here for follow up. 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 Labs still pending for MONY. Did not trial nortriptyline yet. Continues with cramping abd pain and constipation. Has hard stool every 2 days. Requests refill on Mylanta. Feels this gives her better relief than the other medication and wonders if she can stop what was previously prescribed. Has famotidine and omeprazole on her med list but pt unsure which one she is currently taking. Advised to call office and let us know as omeprazole may need to be tapered off to avoid rebound pyrosis. 12/28/24: Here for routine follow up. Did not tolerate nortriptyline - caused mood changes and dysguesia. Constipation persistent - but pt not taking fiber or miralax. [facility] Medical History Depression Anemia GERD (gastroesophageal reflux disease) H. pylori infection Surgical History Hx of colonoscopy History of esophagogastroduodenoscopy (EGD) Surgical history unknown Social History Household Members: Spouse, Family and Children Housing: House Do you presently have visiting nurse or other home services: No Alcohol intake: never Patient Tobacco Use Status: Never used Tobacco service: No Review of Systems Const All systems reviewed & are unremarkable except as noted in HPI and below Physical Exam Vital Signs: Last Vital Signs Pulse 77 12/28/24 09:08 BP 121/67 12/28/24 09:08 BMI result Body Mass Index 29.1 No apparent distress Nonicteric Abdomen soft, nondistended Alert and oriented x3, normal gait Assessment & Plan Assessment & Plan (1) Anemia: Code(s): D64.9 - Anemia, unspecified Category: Medical (2) Epigastric pain: Code(s): R10.13 - Epigastric pain Category: Medical Plan 1. 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 H Pylori successfully eradicated with quad therapy. Was given nortriptyline which she did not tolerate well. Will switch to despiramine low dose and review in 3 months. If unable to tolerate TCAs at all, may consider buspirone. Plan: - Stop nortriptyline - Start desipramine 10 (ideally to be started at 25 but due to reported sensitivity will start at the lowest available dose) - Review effectiveness in 3 months and if can be increased to 25 - Pt also encouraged to try OTC combination of menthol/casandra supplement such as iberogast or FD rubin. - Miralax daily or every other day to tx constipation which could be causing some nausea and bloating 2. MONY Normalized with iron supplementation. Prev was planned to repeat colo (poor prep 2022) but since the MONY has resolved with supplementation. Will monitor CBC and ferritin and if evidence of ongoing losses, can be reviewed. Otherwise CRC screening to begin at 47 y.o. Follow up 3 months Orders: Orders Complete Blood Count no Diff 3 Months D64.9 - Anemia, unspecified Ferritin 3 Months D64.9 - Anemia, unspecified Medications: New desipramine 10 mg PO BEDTIME 90 tabs 0RF Discontinued nortriptyline Take 1 cap at bedtime x 2 weeks, and then increase to 2 caps at bedtime. Discontinued Reason: Doctor's Order 10 mg PO BEDTIME 90 days 90 caps 1RF Coding Level of Care Code Est Pt Level 4 (24379) Diagnoses Anemia D64.9 Epigastric pain R10.13
[2024-12-28 09:08] VITALS: BP 121/67; PULSE 77; BMI 29.1
--- OUTSIDE RECORDS SUMMARY | 2024-12-28 09:56 | XMS_ITS | Clinical Summary ---
Author Organization [facility] Address [address] [place] [address] Care Team Providers Care Claim Review Medical Director Name Role Phone Scarlet Jett [facility] Primary Care Provider [phone] Source Comments PLEASE NOTE, if this patient is a minor, it may be UNLAWFUL to discuss sensitive information that is contained in these records (such as FAMILY PLANNING, MENTAL HEALTH or SUBSTANCE ABUSE) with the minor patient's parent or other person without the patient's specific authorization.[facility] Allergies No known active allergies Medications MISCELLANEOUS MEDICAL SUPPLY MISCIndications: Foot swelling Please dispense two compression stockings. 15 mmHg. Dx: Foot swelling. Duration 99 years 2 Each 4 Active diclofenac sodium (SOLARAZE) 3 % gelIndications:F oot swelling Apply topically 2 (two) times daily 50 g 3 4 Active sucralfate (CARAFATE) 1 gram tabletIndication s:Epigastric abdominal pain Take 1 Tablet by mouth 4 (four) times daily before meals and nightly For stomach pain 60 Tablet 1 4 Active chlorhexidine (PERIDEX) 0.12 % solutionIndicati ons:Gingivitis Swish and spit 15 mL 2 (two) times daily 473 mL 2 4 Active dicyclomine (BENTYL) 10 mg capsule Take 1 Capsule by mouth 4 (four) times daily as needed for other reason (abd pain/ cramping) 30 Capsule 1 4 Active aspirin-acetamin ophen-caffeine (EXCEDRIN MIGRAINE) 250-250-65 mg per tabletIndication s:Acute non intractable tension-type headache Take 1 Tablet by mouth every 6 (six) hours as needed for pain 30 Tablet 1 4 Active ferrous sulfate 325 mg (65 mg iron) tablet Take 1 Tablet by mouth 3 (three) times daily with meals 4 Active nortriptyline (PAMELOR) 10 mg capsule Take 10 mg by mouth nightly at bedtime 4 Active pantoprazole (PROTONIX) 20 mg EC tabletIndication s:Gastroesophage al reflux disease with esophagitis without hemorrhage Take 1 Tablet by mouth 2 (two) times daily 60 Tablet 2 5 Active famotidine (PEPCID) 20 mg tabletIndication s:Gastroesophage al reflux disease with esophagitis without hemorrhage Take 1 Tablet by mouth 2 (two) times daily 60 Tablet 2 5 Active DULoxetine (CYMBALTA) [address] capsuleIndicatio ns:Current moderate episode of major depressive disorder without prior episode ([facility]) Take 1 Capsule by mouth once daily for 90 days 30 Capsule 2 5 02/27/20 25 Active ondansetron HCL (ZOFRAN) 4 mg tabletIndication s:Nausea Take 1 Tablet by mouth every 8 (eight) hours as needed for nausea for up to 30 days 30 Tablet 5 12/28/19 25 Active Active Problems Problem Noted Date Diagnosed Date Current moderate episode of major depressive disorder without prior episode (HCC-CMS) 06/21/2024 Insomnia secondary to depression with anxiety Pelvic pain 06/21/2024 Encounters Date Type Department Care Team Description 11/28/2024 10:30 AM EST / Visits [address] [phone] Dionisio Heath FNP Nausea (Primary Dx); Current moderate episode of major depressive disorder without prior episode ([facility]) 11/25/2024 3:40 PM EST Office Visit [address] [phone] Rodo, CHANDU Knox Gastroesophageal reflux disease with esophagitis without hemorrhage (Primary Dx); Non-Swedish speaking patient 11/03/2024 Travel from Last 3 Months Immunizations Name Administration Dates Next Due COVID-19,SARS-COV-2 VACCINE, UNSPECIFIED (US Admin) 04/28/2022,05/18/2021,04/23/2021 Hep B, Adult/Adol (ENERGIX/RECOMBIVAX) 2,04/28/2022 Hep B,adult,adjuvanted (HEPLISAV) 05/24/2024 INFLUENZA, SEASONAL, INJECTABLE 04/28/2022 IPV 09/01/2022,04/28/2022 Influenza (FLUBLOK),recombinant,injectable,preservati ve Free 08/18/2024 Pfizer COVID-19 (Comirnaty), Mrna, Lnp-s, Pf, Jean-Claude-sucrose, 30 Mcg/0.3 Ml, 12yr+ 08/18/2024 TDAP 11/11/2022,04/28/2022 Family History Medical History Relation Name Comments No Known Problems Father No Known Problems Mother Relation Name Status Comments Father Alive Mother Alive Social History Tobacco Use Types Packs/Day Years Used Date Smoking Tobacco: Never Passive Smoke Exposure: Never Smokeless Tobacco: Never Tobacco Cessation:Counseling Given: Not Answered Alcohol Use Standard Drinks/Week Comments Never 0 (1 standard drink = 0.6 oz pur e alcohol) Social Connections Answer Date Recorded Connectedness 1 07/05/2024 Financial Resource Strain Answer Date R ecorded Financial Resource Strain 2 2023 Stress Answer Date Recorded Stress 1 07/05/2024 Physical Activity Answer Date Recorded Physical Activity 0 10/22/2022 Food Insecurity Answer Date Recorded Food 1 07/05/2024 Transportation Needs Answer Date Record ed Transportation 2 07/05/2024 Housing Stability Answer Date Recorded Housing 2 07/05/2024 Safety and Environment Answer Date Kanu rded Safety 1 06/21/2024 Utilities Answer Date Recorded Utilities 2 07/05/2024 Employment Answer Date Recorded Stress 0 12/01/2022 Comments Unknown Sex and Gender Information Value Date Recorded Sex Assigned at Female 10/22/2022 11:37 AM PST Legal Sex Female 1:35 PM PST Gender Identity Female 10/22/2022 11:37 AM PST Sexual Orientation Straight 10/22/2022 11 :37 AM PST Last Filed Vital Signs Vital Sign Reading Time Taken Comments Blood Pressure 123/76 11/25/2024 3:34 PM EST Pulse 91 11/25/2024 3:34 PM EST Temperature 36.7 ??C (98 ??F) 11/25/2024 3:34 PM EST Respiratory Rate 18 11/25/2024 3:34 PM EST Oxygen Saturation 99% 06/04/2023 10:53 AM EDT Inhaled Oxygen Concentration - - Weight 79.4 kg (175 lb) 11/25/2024 3:34 PM EST Height 157.5 cm (5' 2.01 ) 05/24/2024 2:04 PM ED T Body Mass Index 32 05/24/2024 2:04 PM EDT Plan of Treatment Upcoming Encounters Date Type Department Care Team (Late st Contact Info) Description 12/28/2024 3:20 PM EST Office Visit [facility] [address] [place] [phone] Berenice Farrell, RADIO INTERFERENCE INVESTIGATOR [address] [place] [address] Juan Antonio Brower, Community Health Worker [address] [place] [address] 01/09/2025 11:30 AM EDT BH/MH Visits [facility] [address] [place] [phone] Dionisio Heath, RADIO INTERFERENCE INVESTIGATOR [address] [place] [phone] Health Maintenance Due Date Last Done Comments HPV Screening 1987 Pap + HPV 1987 Cervical Cancer Screening 2008 Pap Smear 2008 Depression Monitoring 08/24/2024 05/24/2024 , 05/29/2023, 12/10/2022 Alcohol and Drug Screen 11/02/2024 05/24/2024, 12/10 Annual Preventive Care Visit 05/24/2025 05/24/2024 Relationship Safety Screening/Counseling 06/21/2025 06/21/2024, 05/29/2023 Hypertension Screening (#1) 11/25/2025 Tobacco Screening 11/25/2025 11/25/2024 Diabetes Screening 05/31/2027 05/31/2024, 0 05/31/2024, 10/22/2022, Additional history exists Lipid Screening 05/31/2027 05/31/2024 Imm-DTaP/Tdap/Td (3 - Td or Tdap) 11/11/2032 023, 04/28/2022 HIV Screening Completed 11/07/2022 Hepatitis C Screening Completed 11/07/2022, 023 Imm-Hepatitis B Completed 05/24/2024, 08/04, 04/28/2022 [id number] Completed 08/18/2024, 04/03, 05/18/2021, Additional history exists Imm-Influenza Completed 08/18/2024, 04/28/2022 Cervical Ablation/Cold-Knife Conization Discontinued Cervical Cryotherapy Discontinued Colposcopy Discontinued Endometrial Biopsy Discontinued Excision/Leep Discontinued HPV Genotyping Discontinued Vaginal Pap Discontinued Vulvoscopy Discontinued Procedures Procedure Name Priority Date/Time Associated Diagnosis Comments COMPREHENSIVE METABOLIC PANEL Routine 05/31/2024 12:33 PM EDT Routine general medical examination at a health care facility Iron deficiency anemia secondary to inadequate dietary iron intake LIPID PANEL Routine 05/31/2024 12:33 PM EDT Routine general medical examination at a health care facility Iron deficiency anemia secondary to inadequate dietary iron intake HIV 1/2 AG & AB W/RFLX (4TH GEN) Routine 11/07/2022 3:01 PM EST Refugee health examination HEPATITIS C AB W/RFLX HCV RNA, QT, RT PCR Routine 11/07/2022 3:01 PM EST Refugee health examination from Last 3 Months or Most Recently Relevant to Health Maintenance Results * (ABNORMAL) LIPID PANEL (05/31/2024 12:33 PM EDT) CHOLESTEROL, TOTAL 198 <200 mg/dL [facility] HDL CHOLESTEROL 44(L) > OR = 50 mg/dL [facility] TRIGLYCERIDES 136 <150 mg/dL [facility] LDL-CHOLESTEROL 129(H) 99 mg/dL (calc) [facility] Comment: Reference range: <100 Desirable range <100 mg/dL for primary prevention; ?? <70 mg/dL for patients with CHD or diabetic patients with > or = 2 CHD risk factors. LDL-C is now calculated using the Lexi calculation, which is a validated novel method providing better accuracy than the Friedewald equation in the estimation of LDL-C. Jaime ESCOBAR et al. MATILDE. 2013;310(19): 6945-9671 (http://education.Ripstone/faq/HGF220) CHOL/HDLC RATIO 4.5 <5.0 (calc) [facility] NON-HDL CHOLESTEROL 154(H) <130 mg/dL (calc) [facility] Comment: For patients with diabetes plus 1 major ASCVD risk factor, treating to a non-HDL-C goal of <100 mg/dL (LDL-C of <70 mg/dL) is considered a therapeutic option. Blood Blood / Unknown 7:12 AM EDT Scarlet Jett [facility] LAB - BLOOD DRAW Final Result [facility] [address] [place] [phone], [facility] [address] [place] [phone] * (ABNORMAL) COMPREHENSIVE METABOLIC PANEL (05/31/2024 12:33 PM EDT) GLUCOSE 105(H) 65 - 99 mg/dL [facility] Comment: ?Fasting reference interval For someone without known diabetes, a glucose value between 100 and 125 mg/dL is consistent with prediabetes and should be confirmed with a follow-up test. UREA NITROGEN (BUN) 12 7 - 25 mg/dL [facility] CREATININE (blood) 0.65 0.50 - 0.97 mg/dL [facility] EGFR 117 > OR = 60 mL/min/1. 73m2 [facility] BUN/CREATININE RATIO SEE NOTE: [facility] Comment: ?? Not Reported: BUN and Creatinine are within ?? reference range. ? SODIUM 137 135 - 146 mmol/L [facility] POTASSIUM 4.4 3.5 - 5.3 mmol/L [facility] CHLORIDE 106 98 - 110 mmol/L [facility] CARBON DIOXIDE 23 20 - 32 mmol/L [facility] CALCIUM 9.6 8.6 - 10.2 mg/dL [facility] PROTEIN, TOTAL 7.6 6.1 - 8.1 g/dL [facility] ALBUMIN 4.6 3.6 - 5.1 g/dL [facility] GLOBULIN 3.0 1.9 - 3.7 g/dL (calc) [facility] ALBUMIN/GLOBULI N RATIO 1.5 1.0 - 2.5 (calc) [facility] BILIRUBIN, TOTAL 0.3 0.2 - 1.2 mg/dL [facility] ALKALINE PHOSPHATASE 64 31 - 125 U/L [facility] AST 18 10 - 30 U/L [facility] ALT 23 6 - 29 U/L [facility] Blood Blood / Unknown 7:12 AM EDT Scarlet Jett [facility] LAB - BLOOD DRAW Edited Result - Final [facility] [address] [address], [facility] [address] [place] [address] * HEPATITIS C AB W/RFLX HCV RNA, QT, RT PCR (11/07/2022 3:01 PM EST) HEPATITIS C ANTIBODY NON-REACT NINO NON-REACT NINO [facility] SIGNAL TO CUT-OFF <0.02 <1.00 [facility] Comment: HCV antibody was non-reactive. There is no laboratory evidence of HCV infection. In most cases, no further action is required. However, if recent HCV exposure is suspected, a test for HCV RNA (test code 26320) is suggested. For additional information please refer to http://education.Calibrus/faq/YDX01v2 (This link is being provided for informational/ educational purposes only.) Blood Blood / Unknown 11/07/2022 3 :01 PM EST 11/07/2022 3:02 PM EST Narrative [facility] [employer] [facility] - 11/13/2022 10:36 PM EST COLLECTION KIT GIVEN TO PATIENT. PATIENT ADVISED TO RETURN. Lois Colbert PA-C LAB - BLOOD DRAW Edited Resu lt - Final [facility] [address] [address], [facility] 200 [facility] [place] [place] [address] * HIV 1/2 AG & AB W/RFLX (4TH GEN) (11/07/2022 3:01 PM EST) HIV AG/AB, 4TH GEN NON-REAC TIVE NON-REAC TIVE [facility] Comment: HIV-1 antigen and HIV-1/HIV-2 antibodies were not detected. There is no laboratory evidence of HIV infection. PLEASE NOTE: This information has been disclosed to you from records whose confidentiality may be protected by state law. ??If your state requires such protection, then the state law prohibits you from making any further disclosure of the information without the specific written consent of the person to whom it pertains, or as otherwise permitted by law. A general authorization for the release of medical or other information is NOT sufficient for this purpose. ?? For additional information please refer to http://education.Calibrus/faq/KIX772 (This link is being provided for informational/ educational purposes only.) The performance of this assay has not been clinically validated in patients less than 2 years old. Blood Blood / Unknown 11/07/2022 3 :01 PM EST 11/07/2022 3:02 PM EST Narrative [facility] - 11/13/2022 10:36 PM EST COLLECTION KIT GIVEN TO PATIENT. PATIENT ADVISED TO RETURN. us Lois Colbert PA-C LAB - BLOOD DRAW Final Resul t Performing Organization Address [facility]/ZIP Co de Phone Number [facility] [address] [address], [facility] 200 [facility] ([facility]) [place] [address] from Last 3 Months or Most Recently Relevant to Health Maintenance Insurance [place] MEDICA[place] [address] [facility] Medicaid Address: [address] [place] [address] [facility] Care Teams Claim Review Medical Director Relationship Specialty Start Date End Date Scarlet Jett FNP [address] [place] [address] PCP - General Internal Medicine 11/11/22
--- OUTSIDE RECORDS SUMMARY | 2024-12-28 09:56 | XMS_ITS | Encounter Summary ---
Author Organization [facility] Address [address] [place] [address] Care Team Providers Care Convenience Store Manager Name Role Phone Scarlet Jett [facility] Primary Care Provider [phone] Reason for Visit * Reason Comments Behavioral Health: Health And Behavior Encounter Details Date Type Department Care Team ([facility] st Contact Info) Description 11/28/2024 10:30 AM EST / Visits [facility] [address] [place] [phone] Dionisio Heath FNP [address] [place] [phone] Nausea (Primary Dx); Current moderate episode of major depressive disorder without prior episode ([facility]) Social History Tobacco Use Types Packs/Day Years Used Date Smoking Tobacco: Never Passive Smoke Exposure: Never Smokeless Tobacco: Never Alcohol Use Standard Drinks/Week Comments Never 0 [...] Orientation Straight 10/22/2022 11 :37 AM PST COVID-19 Exposure Response Date Recorded In the last 10 days, have yo u been in contact with someone who was confirmed or suspected to have Coronavirus/COVID-19? Unable to assess 11/03/2024 1:00 PM EST documented as of this encounter Progress Notes * Dionisio Heath, ASSESSOR - 11/28/2024 10:49 AM EST Subjective HPI Visit START TIME:10.30 am Visit END TIME: 11 am Ermelinda Walter is a 39-year-old female who is being seen at the clinic for a follow-up appointment;she has a history and is being treated for anxiety and depression. A [employer] secretary specialist was present and assisted at this visit. The patient was started on Cymbalta. The patient reports having been taking medication daily up until 1 week ago. She ran out of medication and reported symptoms of headache, nausea, and fatigue. She was also seen by GI and was started on Nortriptyline which has worsening symptoms that also include dry mouth, change in taste, and blurry vision. She, therefore, self D/C Nortriptyline. The patient reports mood was better, happier, and less anxious while on medications. Depression The patient reported experiencing low mood, low motivation, low energy, and, sadness, and social isolation/withdrawal. Anxiety - The patient reported experiencing mild symptoms in the form of excessive worrying. Sleep - The patient reported average sleep sleeping 7-8 hours a night. Panic attacksDenies Appetite - The patient reported a normal appetite Manic symptoms The patient denies any manic symptoms in the form of racing thoughts, mood swings, increased energy, reckless behavior, or less need for sleep. The patient reports being compliant /non-compliant with medications. The Patient reports a good response to medications. Safety Assessment (Suicide/Homicidal Risk) Feels like hurting self DENIES Violence Risk: No Active Intent, No Plan Feels like hurting others DENIES Suicidal Risk: No Active SI, No Plan Emotion/Mood Calm Coping (Observed Emotional State) Calm and Cooperative Speech Clear, coherent Orientation WNL Thought Processes WNL Hallucinations Denies hallucinations Delusions No delusions Review of Systems- As noted above Objective There were no vitals filed for this visit. Estimated body mass index is 32 kg/m?? as calculated from the following: Height as of 05/24/24: 5' 2.01 (1.575 m). Weight as of 11/25/24: 175 lb (79.4 kg). No height and weight on file for this encounter. Physical Exam Constitutional: Appearance: Normal appearance. HENT: Head: Normocephalic and atraumatic. Neurological: Mental Status: She is alert and oriented to person, place, and time. Psychiatric: Attention and Perception: Attention normal. Mood and Affect: Mood normal. Speech: Speech normal. Behavior: Behavior normal. Thought Content: Thought content normal. Cognition and Memory: Cognition normal. Judgment: Judgment normal. Assessment and Plan 1. Current moderate episode of major depressive disorder without prior episode ([facility]) - DULoxetine (CYMBALTA) [address] capsule; Take 1 Capsule by mouth once daily for 90 days Dispense: 30 Capsule; Refill: 2 2. Nausea (Primary) - ondansetron HCL (ZOFRAN) 4 mg tablet; Take 1 Tablet by mouth every 8 (eight) hours as needed for nausea for up to 30 days Dispense: 30 Tablet; Refill: 0 - I have asked pt to resume Cymbalta as above, the medication helped with symptoms , enough refillssent to pharmacy. -I have discussed if she chooses to stop medication, will discuss slow tapering dose to avoid withdrawal side effects - I have also discussed that Nortriptyline can cause anticholinergic effects and to follow up withprescriber F/U 6 weeks RTC as scheduled and prn or if symptoms worsen documented in this encounter Plan of Treatment Upcoming Encounters Date Type Department Care Team (Late st Contact Info) Description 12/28/2024 3:20 PM EST Office Visit [facility] [address] [place] [phone] Berenice Farrell FNP [address] [place] [address] Juan Antonio Brower, Community Health Worker [address] [place], [place] [phone] 01/09/2025 11:30 AM EDT /MH Visits [facility] [address] [place] [phone] Dionisio Heath FNP [address] [place] [phone] documented as of this encounter Visit Diagnoses Diagnosis Nausea- Primary Nausea alone Current moderate episode of major depressive disorder without prior episode ([facility]) documented in this encounter Additional Health Concerns Assessment Noted Time PHQ-9 Depression Total Score: 6 05/24/20 24 2:04 PM PDT documented as of this encounter Care Teams Convenience Store Manager Relationship Specialty Start Date End Date Scarlet Jett FNP [address] [place] [id number] PCP - General Internal Medicine 11/11/22 documented as of this encounter
--- OUTSIDE RECORDS SUMMARY | 2024-12-28 09:56 | XMS_ITS | Clinical Summary ---
Author Organization [facility] Address [address] [place] [address] Care Team Providers Care Silk Crepe Machine Operator Name Role Phone Scarlet Jett NP Primary Care Provider [phone] Social History Tobacco Use Types Packs/Day Years Used Date Smoking Tobacco: Never Assessed Comments Unknown Sex and Gender Information Value Date Recorded Sex Assigned at Not on file Legal Sex Female 8:36 PM EST Gender Identity Not on file Sexual Orientation Not on file Plan of Treatment Health Maintenance Due Date Last Done Comments DTaP,Tdap,and Td Vaccines (1 - Tdap) 2006 Hepatitis B Vaccines (1 of 3 - 19+ 3-dose series) 2006 Cervical Cancer Screening: P ap Smear 2008 HIV Screening 11/27/2023 Hepatitis C Screening 11/27/2023 Social Influencers of Health Screening 11/27/2023 COVID-19 Vaccine (1 - 2023-2 5 season) 2024 Influenza Vaccine (#1) 2024 Depression Screening 05/24/2025 05/24/2024 HIB Vaccines Aged Out No longer eligi ble based on patient's age to complete this topic HPV Vaccines Aged Out No longer eligi ble based on patient's age to complete this topic Hepatitis A Vaccines Aged Out No long er eligible based on patient's age to complete this topic IPV Vaccines Aged Out No longer eligi ble based on patient's age to complete this topic MMR Vaccines Aged Out No longer eligi ble based on patient's age to complete this topic Meningococcal ACWY Vaccine Aged Out N o longer eligible based on patient's age to complete this topic Meningococcal B Vacine Aged Out No lo nger eligible based on patient's age to complete this topic Pneumococcal Vaccine: Pediat rics (0 to 5 Years) and At-Risk Patients (6 to 64 Years) Aged Out No longer eligi ble based on patient's age to complete this topic RSV Immunization Patients Un nathalie 20 months Aged Out No longer eligible b ased on patient's age to complete this topic Varicella Vaccines Aged Out No longer eligible based on patient's age to complete this topic Care Teams Silk Crepe Machine Operator Relationship Specialty Start Date End Date Scarlet Jett NP [facility] [place] [address] PCP - General 01/27/23
== END 2024-12-28 09:49 | disposition home or self-care (01) ==
PROVIDERS: Visit Provider Internal Medicine
DX: D64.9 Anemia, unspecified (principal); R10.13 Epigastric pain
CPT/HCPCS: 99214

== ENCOUNTER → 2024-12-28 09:04 | Outpatient (BNVA) | payer MEDICAID, SELFPAY | PROVIDERS: Visit Provider Internal Medicine | DX: K30 Functional dyspepsia (principal); D50.9 Iron deficiency anemia, unspecified | CPT/HCPCS: 99212 ==

== ENCOUNTER 2025-03-17 16:00 | Outpatient (AMB) | payer MEDICAID, SELFPAY ==
--- OUTSIDE RECORDS SUMMARY | 2025-03-17 16:02 | XMS_ITS | Clinical Summary ---
Author Organization [facility] Address [address] [place] [address] Care Team Providers Care Universal Worker Assisted Living Name Role Phone Scarlet Jett NP Primary Care Provider [phone] Social History Tobacco Use Types Packs/Day Years [...] Influencers of Health Screening 11/27/2023 COVID-19 Vaccine ( - 2023-2 5 season) 2024 Depression Screening 05/24/2025 05/24/2024 Influenza Vaccine (Season Ended) 2025 HIB Vaccines Aged Out No longer eligi [...] age to complete this topic Meningococcal B Vaccine Aged Out No l onger eligible based on patient's age to complete [...] age to complete this topic Care Teams Universal Worker Assisted Living Relationship Specialty Start Date End Date Scarlet Jett NP [facility] [place] [address] PCP - General 01/27/23
--- OUTSIDE RECORDS SUMMARY | 2025-03-17 16:02 | XMS_ITS | Clinical Summary ---
Author Organization [facility] Address [address] [place] [address] Care Team Providers Care Appeals Rn Name Role Phone Scarlet Jett [facility] Primary Care Provider Source Comments PLEASE NOTE, if this patient is a minor, it may be UNLAWFUL to discuss sensitive information that is contained in these records (such as FAMILY PLANNING, MENTAL HEALTH or SUBSTANCE ABUSE) with the minor patient's parent or other person without the patient's specific authorization.[facility] Allergies No known active allergies Medications MISCELLANEOUS MEDICAL SUPPLY MISCIndications :Foot swelling Please dispense two compression stockings. 15 mmHg. Dx: Foot swelling. Duration 99 years 2 Each 04/16/20 24 Active diclofenac sodium (SOLARAZE) 3 % gelIndications: Foot swelling Apply topically 2 (two) times daily 50 g 3 05/27/20 24 Active sucralfate (CARAFATE) 1 gram tabletIndicatio ns:Epigastric abdominal pain Take 1 Tablet by mouth 4 (four) times daily before meals and nightly For stomach pain 60 Tablet 1 05/24/20 24 Active chlorhexidine (PERIDEX) 0.12 % solutionIndicat ions:Gingivitis Swish and spit 15 mL 2 (two) times daily 473 mL 2 05/24/20 24 Active dicyclomine (BENTYL) 10 mg capsule Take 1 Capsule by mouth 4 (four) times daily as needed for other reason (abd pain/ cramping) 30 Capsule 1 08/18/20 24 Active ferrous sulfate 325 mg (65 mg iron) tablet Take 1 Tablet by mouth 3 (three) times daily with meals 06/29/20 24 Active aspirin-acetami nophen-caffeine (EXCEDRIN MIGRAINE) 250-250-65 mg per tabletIndicatio ns:Acute non intractable tension-type headache Take 1 Tablet by mouth every 6 (six) hours as needed for other reason (headahes) 30 Tablet 1 01/10/20 25 Active pantoprazole (PROTONIX) 20 mg EC tabletIndicatio ns:Gastroesopha geal reflux disease with esophagitis without hemorrhage TAKE ONE TABLET BY MOUTH TWICE DAILY 60 Tablet 2 02/14/20 25 Active famotidine (PEPCID) 20 mg tabletIndicatio ns:Gastroesopha geal reflux disease with esophagitis without hemorrhage TAKE ONE TABLET BY MOUTH TWICE DAILY 60 Tablet 2 02/14/20 25 Active DULoxetine (CYMBALTA) [address] capsuleIndicati ons:Current moderate episode of major depressive disorder without prior episode (HCC-CMS) Take 1 Capsule by mouth once daily for 90 days 30 Capsule 2 02/21/20 25 025 Active nortriptyline (PAMELOR) 10 mg capsule Take 10 mg by mouth nightly at bedtime 09/15/20 24 025 Discontinu ed(Patient Stopped Taking) DULoxetine (CYMBALTA) [address] capsuleIndicati ons:Current moderate episode of major depressive disorder without prior episode (HCC-CMS) Take 1 Capsule by mouth once daily for 90 days 30 Capsule 2 01/10/20 25 025 Discontinu ed(Reorder (E-Cancel Not Sent)) Active Problems Problem Noted Date Diagnosed Date Current moderate episode of major depressive disorder without prior episode (HCC-CMS) 06/21/2024 Insomnia secondary to depression with anxiety Pelvic pain 06/21/2024 Encounters Date Type Department Care Team Description 02/20/2025 11:30 AM EDT / Visits [address] [phone] Dionisio Heath FNP Current moderate episode of major depressive disorder without prior episode (HCC-CMS) (Primary Dx); Acute non intractable tension-type headache 01/09/2025 3:00 PM EDT Office Visit [facility] [address] [place] [phone] Damari Anderson Encounter for dental examination (Primary Dx) 01/09/2025 11:30 AM EDT / Visits [address] [phone] Dionisio Heath, TRIMMER HAND Current moderate episode of major depressive disorder without prior episode ([facility]) (Primary Dx); Acute non intractable tension-type headache 12/28/2024 3:20 PM EST Office Visit [address] [phone] Berenice Farrell, TRIMMER HAND Lip pain (Primary Dx); Fall, initial encounter from Last 3 Months Immunizations Immunization Administration Dates Next Due COVID-19,SARS-COV-2 VACCINE, UNSPECIFIED (US Admin) 04/28/2022,05/18/2021,04/23/2021 Hep B, Adult/Adol (ENERGIX/RECOMBIVAX) ,04/28/2022 Hep B,adult,adjuvanted (HEPLISAV) 05/24/2024 INFLUENZA, SEASONAL, INJECTABLE 04/28/2022 IPV (IPOL) 09/01/2022,04/28/2022 Influenza (FLUBLOK),recombinant,injectable,preservati ve Free 08/18/2024 Pfizer [...] Sign Reading Time Taken Comments Blood Pressure 105/85 01/09/2025 3:19 PM EDT Pulse 74 01/09/2025 3:19 PM EDT Temperature 36.8 ??C (98.2 ??F) 12/28/2024 3:56 PM ES T Respiratory Rate 18 12/28/2024 3:56 PM EST Oxygen Saturation 98% 12/28/2024 3:56 PM EST Inhaled Oxygen Concentration - - Weight 79.4 kg (175 lb) 12/28/2024 3:56 PM EST Height 157.5 cm (5' 2 ) 12/28/2024 3:56 PM EST Body Mass Index 32.01 12/28/2024 3:56 PM EST Plan of Treatment Upcoming Encounters Date Type Department Care Team (Late st Contact Info) Description 04/17/2025 9:30 AM EDT / Visits [facility] [address] [place] [phone] Dionisio Heath FNP [address] [place] [phone] Health Maintenance Due Date Last Done Comments Anxiety Screening 1987 HPV Screening 1987 Pap + HPV 1987 Cervical Cancer Screening 2008 Pap Smear 2008 Depression Monitoring 08/24/2024 05/24/2024 , 05/29/2023, 12/10/2022 Alcohol and Drug Screen 11/02/2024 05/24/2024, 12/10 Annual Preventive Care Visit 05/24/2025 05/24/2024 Relationship Safety Screening/Counseling 06/21/2025 06/21/2024, 05/29/2023 Hypertension Screening (#1) 01/09/2026 Tobacco Screening 02/20/2026 02/20/2025 Diabetes Screening 05/31/2027 05/31/2024, 0 05/31/2024, 10/22/2022, Additional history exists Lipid Screening 05/31/2027 05/31/2024 Imm-DTaP/Tdap/Td (3 - Td or Tdap) 11/11/2032 023, 04/28/2022 HIV Screening Completed 11/07/2022 Hepatitis C Screening Completed 11/07/2022 Imm-Hepatitis B Completed 05/24/2024, 08/04, 04/28/2022 [id number] Completed 08/18/2024, 04/03, 05/18/2021, Additional history exists Imm-Influenza Completed 08/18/2024, 04/28/2022 Cervical Ablation/Cold-Knife Conization Discontinued Cervical Cryotherapy Discontinued Colposcopy Discontinued Endometrial Biopsy Discontinued Excision/Leep Discontinued HPV Genotyping Discontinued Vaginal Pap Discontinued Vulvoscopy Discontinued Procedures Procedure Name Priority Date/Time Associated Diagnosis Comments PANORAMIC RADIOGRAPHIC IMAGE Routine 01/09/2025 3:00 PM EDT Encounter for dental examination INTRAORAL - PERIAPICAL FIRST RADIOGRAPHIC IMAGE Routine 01/09/2025 3:00 PM EDT Encounter for dental examination LIMITED ORAL EVALUATION - PROBLEM FOCUSED Routine 01/09/2025 3:00 PM EDT Encounter for dental examination 8 MIFL COMPOSITE - WISDOM (NON BILLABLE) Routine 01/09/2025 12:00 AM EDT 9 MIFL COMPOSITE - WISDOM (NON BILLABLE) Routine 01/09/2025 12:00 AM EDT 10 DIF COMPOSITE - WISDOM (NON BILLABLE) Routine 01/09/2025 12:00 AM EDT COMPREHENSIVE METABOLIC PANEL Routine 05/31/2024 12:33 PM EDT Routine general medical examination at a health care facility Iron deficiency anemia secondary to inadequate dietary iron intake LIPID PANEL Routine 05/31/2024 12:33 PM EDT Routine general medical examination at a health care facility Iron deficiency anemia secondary to inadequate dietary iron intake HIV 1/2 AG & AB W/RFLX (4TH GEN) Routine 11/07/2022 3:01 PM [facility] Refugee health examination HEPATITIS C AB W/RFLX HCV RNA, QT, RT PCR Routine 11/07/2022 3:01 PM EST Refugee health examination from Last 3 Months or Most Recently Relevant to Health Maintenance Results * (ABNORMAL) LIPID PANEL (05/31/2024 12:33 PM EDT) CHOLESTEROL, TOTAL 198 <200 mg/dL [facility] HDL CHOLESTEROL 44(L) > OR = 50 mg/dL [facility] [place] [facility] TRIGLYCERIDES 136 <150 mg/dL [facility] LDL-CHOLESTEROL 129(H) 99 mg/dL (calc) [facility] Comment: Reference range: <100 Desirable range <100 mg/dL for primary prevention; ?? <70 mg/dL for patients with CHD or diabetic patients with > or = 2 CHD risk factors. LDL-C is now calculated using the Lexi calculation, which is a validated novel method providing better accuracy than the Friedewald equation in the estimation of LDL-C. Jaime ESCOBAR et al. MATILDE. 2013;310(19): 8961-3083 (http://education.[employer]/faq/FTZ275) CHOL/HDLC RATIO 4.5 <5.0 (calc) [facility] NON-HDL CHOLESTEROL 154(H) <130 mg/dL (calc) [facility] Comment: For patients with diabetes plus 1 major ASCVD risk factor, treating to a non-HDL-C goal of <100 mg/dL (LDL-C of <70 mg/dL) is considered a therapeutic option. Blood Blood / Unknown 7:12 AM EDT Scarlet Jett [facility] LAB - BLOOD DRAW Final Result [facility] [address] [id number], [facility] [address] [phone] * (ABNORMAL) COMPREHENSIVE METABOLIC PANEL (05/31/2024 12:33 PM EDT) GLUCOSE 105(H) 65 - 99 mg/dL [facility] Comment: ?Fasting reference interval For someone without known diabetes, a glucose value between 100 and 125 mg/dL is consistent with prediabetes and should be confirmed with a follow-up test. UREA NITROGEN (BUN) 12 7 - 25 mg/dL [facility] CREATININE (blood) 0.65 0.50 - 0.97 mg/dL [facility] [place] [facility] EGFR 117 > OR = 60 mL/min/1. 73m2 [facility] [place] [facility] BUN/CREATININE RATIO SEE NOTE: [facility] Comment: ?? Not Reported: BUN and Creatinine are within ?? reference range. ? SODIUM 137 135 - 146 mmol/L [facility] POTASSIUM 4.4 3.5 - 5.3 mmol/L [facility] CHLORIDE 106 98 - 110 mmol/L [facility] CARBON DIOXIDE 23 20 - 32 mmol/L [facility] CALCIUM 9.6 8.6 - 10.2 mg/dL [facility] PROTEIN, TOTAL 7.6 6.1 - 8.1 g/dL [facility] ALBUMIN 4.6 3.6 - 5.1 g/dL [facility] GLOBULIN 3.0 1.9 - 3.7 g/dL (calc) [facility] ALBUMIN/GLOBULI N RATIO 1.5 1.0 - 2.5 (calc) [facility] BILIRUBIN, TOTAL 0.3 0.2 - 1.2 mg/dL [facility] ALKALINE PHOSPHATASE 64 31 - 125 U/L [facility] AST 18 10 - 30 U/L [facility] ALT 23 6 - 29 U/L [facility] Blood Blood / Unknown 4 7:12 AM EDT Scarlet Jett [facility] LAB - BLOOD DRAW Edited Result - Final [facility] [address] [address], [facility] [address] [place] [address] * HEPATITIS C AB W/RFLX HCV RNA, QT, RT PCR (11/07/2022 3:01 PM EST) HEPATITIS C ANTIBODY NON-REACT NINO NON-REACT NINO Re[facility]ult [facility] SIGNAL TO CUT-OFF <0.02 <1.00 [facility] Comment: HCV antibody was non-reactive. There is no laboratory evidence of HCV infection. In most cases, no further action is required. However, if recent HCV exposure is suspected, a test for HCV RNA (test code 04807) is suggested. For additional information please refer to http://[employer]/faq/OJC09j9 (This link is being provided for informational/ educational purposes only.) Blood Blood / Unknown 11/07/2022 3 :01 PM EST 11/07/2022 3:02 PM EST Narrative [facility] - 11/13/2022 10:36 PM EST COLLECTION KIT GIVEN TO PATIENT. PATIENT ADVISED TO RETURN. us Lois Colbert PA-C LAB - BLOOD DRAW Edited Resu lt - Final [facility] [address] [facility] [address] [place] [address], [facility] [address] [place] [address] (2) [place] [address] * HIV 1/2 AG & AB W/RFLX (4TH GEN) (11/07/2022 3:01 PM EST) Pathologist [facility] HIV AG/AB, 4TH GEN NON-REAC TIVE NON-REAC TIVE Re[facility]ult [facility] Comment: HIV-1 antigen and HIV-1/HIV-2 antibodies [...] ?? For additional information please refer to http://[employer]/faq/KJE675 (This link is being provided for informational/ educational purposes only.) The performance of this assay has not been clinically validated in patients less than 2 years old. Blood Blood / Unknown 11/07/2022 3 :01 PM EST 11/07/2022 3:02 PM EST Narrative [facility] - 11/13/2022 10:36 PM EST COLLECTION KIT GIVEN TO PATIENT. PATIENT ADVISED TO RETURN. us Lois Colbert PA-C LAB - BLOOD DRAW Final Resul t [facility] [address] [facility] [address] [place] [address], [facility] [address] [facility] (NL[facility]) [place] [phone] from Last 3 Months or Most Recently Relevant to Health Maintenance Insurance [place] [address] [employer] [facility] Care Teams Appeals Rn Relationship Specialty Start Date End Date Scarlet Jett FNP [address] [place] [address] PCP - General Internal Medicine 11/11/22
--- NOTE | 2025-03-17 16:05 | MHC.OFFVIS ---
Vital Signs 03/17/25 16:06 Height 5 ft 4 in Weight 167 lb 8.821 oz BMI 28.8 BP 108/66 Blood Pressure Location Lt brachial Position Sitting Pulse 78 Intake Visit Reasons: anemia Intake Note: Ermelinda presents in the office as a follow up for anemia. CC: She states that she is having some pains in the epigastric region and she gets headaches along with the stomach pains. Constipation along with the pains in the stomach. She states that whenever she has those issues she gets pains in the shoulders and she is feeling like it is her issues with her anemia. Steno Pool Supervisor Required: Yes Steno Pool Supervisor Name: [id number] Tommy Chadwick Allergies No Known Allergies Allergy (Verified 09/19/24 15:28) HPI Comments Details: 37y.o F Karol burris speaking who is here for weakness and fatigue due to severe iron deficiency from menstrual losses. Reports longstanding hx of acid reflux which has been managed on pepcid however for the past one month her discomfort has worsened and not gotten better despite adding omeprazole BID. No difficulty swallowing, but does report occ nausea. She was also recently diagnosed with H Pylori and was treated with quad therapy but unclear if he had a TIN. Pt was also noted to have severe microcytic anemia. Reports normal flow for her periods - changes pads 5-6 times a day. No melena or hematochezia reported. 08/20/23: 1. Normal esophagus 2. Gastritis (biopsy) 3. Abnormal duodenal mucosa (biopsy) 4. Poor prep 5. External and internal hemorrhoids Path: A. Duodenum, biopsy: Small intestinal mucosa with mildly increased intraepithelial lymphocytes and preserved villous architecture. B. Stomach, random, biopsy: - Antral-type and oxyntic mucosa with moderate chronic inactive inflammation. - Rare forms suspicious for H. pylori identified. C. Esophagus, lower, biopsy: - Cardiac-type mucosa with mild chronic inactive inflammation; no intestinal metaplasia seen. - Active esophagitis (maximum eosinophil count 1 per high powered field). D. Esophagus, middle, biopsy: Squamous epithelium within normal limits; no inflammation seen. 08/31/23: Reports continued sensation of sour brash and burning sensation coming up to her chest. Reports considerable fatigue and mood changes as well. EGD/colo findings reviewed. [place] was poor prep and will be rebooked. For EGD - appears has persistent H Pylori despite tx earlier this year through her PCP. 10/13/23: Was seen by the jb Garcia as urgent visit as pt complained severe constipation and tiredness along with RUQ pain. An US RUQ was done which was normal. SHe was also switched to a different iron formulation for better PO tolerance. 12/01/23: Today reports that continues to have severe abd cramping and pain with constipation whenever she takes the iron pill so has not been able to take it more than 2-3 times a week since last month. With this continues to report weakness, easy fatigability and mood changes. H Pylori TIN negative i.e successfully eradicated. 02/23/24: Here for 3 month follow up. Unfortunately never got iron infusions. Was not sure where to get them from and reports never got contacted by infusion suite. Continues to have low energy, headaches, restless sleep. 06/20/24: Here for follow up. Feels much better since receiving iron infusions. Main complaint today is severe abd pain that starts in the morning even before she has eaten anything. Mainly in epigastrium and RUQ, burning, crampy, assoc with nausea. Has been on famotidine and sucralfate without any relief. US without gallstones in Nov 2023. Sometimes has diarrhea but pain does not always get better with BMs. 09/19/24: Here for follow up. [facility] direct care specialist online. Labs still pending for MONY. Did not trial nortriptyline yet. Continues with cramping abd pain and constipation. Has hard stool every 2 days. Requests refill on Mylanta. Feels this gives her better relief than the other medication and wonders if she can stop what was previously prescribed. Has famotidine and omeprazole on her med list but pt unsure which one she is currently taking. Advised to call office and let us know as omeprazole may need to be tapered off to avoid rebound pyrosis. 12/28/24: Here for routine follow up. Did not tolerate nortriptyline - caused mood changes and dysguesia. Constipation persistent - but pt not taking fiber or miralax. 03/17/25: Here for follow up. Feels better than before. Good response to desipramine. Wonders if dose can be increased. Now only issue is occ headaches. No abd pain, N,V. No melena or hematochezia. Recently has had some pica so wonders if iron levels have dropped again. [facility] Medical History Depression Anemia GERD (gastroesophageal reflux disease) H. pylori infection Surgical History Hx of colonoscopy History of esophagogastroduodenoscopy (EGD) Surgical history unknown Social History Household Members: Spouse, Family and Children Housing: House Do you presently have visiting nurse or other home services: No Alcohol intake: never Patient Tobacco Use Status: Never used Tobacco service: No Review of Systems Const All systems reviewed & are unremarkable except as noted in HPI and below Physical Exam Vital Signs: Last Vital Signs Pulse 78 03/17/25 16:06 BP 108/66 03/17/25 16:06 BMI result Body Mass Index 28.8 No apparent distress Nonicteric Abdomen soft, nondistended Alert and oriented x3, normal gait Assessment & Plan Assessment & Plan (1) Anemia: Code(s): D64.9 - Anemia, unspecified Category: Medical (2) Epigastric pain: Code(s): R10.13 - Epigastric pain Category: Medical Plan 1. 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 H Pylori successfully eradicated with quad therapy. Has had good response to desipramine. Will go up as per pt's preference. Plan: - Increase desipramine to 20 mg - Pt also encouraged to try OTC combination of menthol/casandra supplement such as iberogast or FD rubin. - Miralax daily or every other day to tx constipation which could be causing some nausea and bloating 2. MONY Normalized with iron supplementation. Prev was planned to repeat colo (poor prep 2022) but since the MONY is likely 2/2 menstrual losses this can be held off for now. Plan: - Recheck CBC and iron panel - May need repeat venofer since pt has monthly menstrual period and does not tolerate PO iron Follow up 6 months Medications: Changed From desipramine 10 mg PO BEDTIME 90 tabs 0RF To desipramine 20 mg (2 x 10 mg) PO BEDTIME 90 days 180 tabs 1RF Coding Level of Care Code Est Pt Level 4 (08550) Diagnoses Anemia D64.9 Epigastric pain R10.13
[2025-03-17 16:06] VITALS: BP 108/66; PULSE 78; BMI 28.8
== END 2025-03-17 16:23 | disposition home or self-care (01) ==
LOC: HO.HGI 16:00
PROVIDERS: Visit Provider Internal Medicine
DX: D64.9 Anemia, unspecified (principal); R10.13 Epigastric pain
CPT/HCPCS: 99214

== ENCOUNTER 2025-03-17 16:00 | Outpatient (REF) | payer MEDICAID, SELFPAY ==
--- OUTSIDE RECORDS SUMMARY | 2025-03-17 16:32 | XMS_ITS | Clinical Summary ---
Author Organization [facility] Address [address] [place] [address] Care Team Providers Care Documentation Clerk Name Role Phone Scarlet Jett NP Primary Care Provider [phone] Social History Tobacco Use Types Packs/Day Years [...] age to complete this topic Care Teams Documentation Clerk Relationship Specialty Start Date End Date Scarlet Jett NP [facility] [place] [address] PCP - General 01/27/23
[2025-03-17 18:18] LABS: Hematocrit 28.7 % (37.0-47.0); Hemoglobin 8.9 g/dl (12.0-16.0); Mean Corpuscular Hemoglobin 23.2 pg (27.0-33.0); Mean Corpuscular Volume 74.7 fL (80.0-98.0); Mean Platelet Volume 10.4 fL (9.4-12.3); Platelet Count 237 X10*3/uL (160-400); Red Blood Count 3.84 X10*6/uL (4.20-5.50); White Blood Count 7.2 X10*3/uL (4.8-10.8)
[2025-03-17 18:48] LABS: Ferritin 4 ng/mL (10-122)
== END 2025-03-17 16:01 | disposition home or self-care (01) ==
LOC: HO.LAB 16:00
PROVIDERS: Visit Provider Internal Medicine
DX: D64.9 Anemia, unspecified (principal); R10.13 Epigastric pain
CPT/HCPCS: 36415; 82728; 85027; 99212

== ENCOUNTER 2025-05-24 15:00 | Outpatient (RCR) | payer MEDICAID, SELFPAY ==
[2025-04-05 14:30] VITALS: BP 108/62; PULSE 81; RESP 16; TEMP 36.7; O2SAT 98
[2025-04-13 15:17] VITALS: BP 102/66; PULSE 78; RESP 16; TEMP 36.6; O2SAT 98
[2025-04-19 15:01] VITALS: BP 107/62; PULSE 84; RESP 16; O2SAT 100
[2025-04-26 14:13] VITALS: BP 97/63; PULSE 64; RESP 16; TEMP 36.6; O2SAT 96
[2025-05-03 15:10] VITALS: BP 98/64; PULSE 62; RESP 18; TEMP 36.6
[2025-05-10 15:08] VITALS: BP 99/64; PULSE 63; RESP 16; TEMP 36.8; O2SAT 99
[2025-05-17 14:19] VITALS: BP 104/56; PULSE 68; RESP 16; TEMP 36.6; O2SAT 98
[2025-05-24 14:59] VITALS: BP 98/55; PULSE 69; RESP 16; TEMP 36.6; O2SAT 99
== END 2025-05-24 15:32 | disposition home or self-care (01) ==
LOC: HO.INF 15:00
PROVIDERS: Visit Provider Internal Medicine
DX: D64.9 Anemia, unspecified (principal)
CPT/HCPCS: 96365; J1756